=== PATIENT | male | born 1955 | race Caucasian/White ===

== ENCOUNTER 2023-08-10 09:36 | Observation (INO) ==
[2023-08-10 13:44] LABS: BASOPHILS % (AUTO) 0.7 % (0.2-1.0); EOSINOPHILS # (AUTO) 0.1 x10^3/uL (0.0-0.2); EOSINOPHILS % (AUTO) 1.9 % (0.9-2.9); HEMATOCRIT 39.9 % (42.0-54.0); HEMOGLOBIN 13.2 g/dL (13.5-18.0); LYMPHOCYTES # (AUTO) 1.1 X10^3/uL (1.3-2.9); LYMPHOCYTES % (AUTO) 24.3 % (21.0-51.0); MEAN CORPUSCULAR HEMOGLOBIN 29.4 pg (27.0-34.0); MEAN CORPUSCULAR HGB CONC 33.2 g/dL (33.0-35.0); MEAN CORPUSCULAR VOLUME 88.5 fL (80.0-100.0); MEAN PLATELET VOLUME 6.7 fL (7.4-11.0); MONOCYTES # (AUTO) 0.5 x10^3/uL (0.3-0.8); MONOCYTES % (AUTO) 11.7 % (0.0-13.0); NEUTROPHILS # (AUTO) 2.8 x10^3/uL (2.2-4.8); NEUTROPHILS % (AUTO) 61.4 % (42.0-75.0); PLATELET COUNT 218 X10^3/uL (150.0-450.0); RED CELL DISTRIBUTION WIDTH 15.4 % (11.6-16.5); WHITE BLOOD COUNT 4.5 X10^3/uL (3.6-10.0)
[2023-08-10 13:57] LABS: ALANINE AMINOTRANSFERASE 26 Units/L (12-78); ALBUMIN 2.8 g/dL (3.4-5.0); ALKALINE PHOSPHATASE 68 Units/L (46-116); ASPARTATE AMINO TRANSFERASE 20 Units/L (15-37); BLOOD UREA NITROGEN 6 mg/dL (7-18); CALCIUM 8.3 mg/dL (8.5-10.1); CARBON DIOXIDE 30.1 mmol/L (21-32); CHLORIDE 103 mmol/L (98-107); COR CA(FOR HYPOALB) 9.3 mg/dL (8.5-10.1); COR NA(FOR HYPERGLY) 144 mmol/L (136-145); CREATININE 0.78 mg/dL (0.70-1.30); GLUCOSE 216 mg/dL (65-99); MAGNESIUM 1.6 mg/dL (2.0-2.9); POTASSIUM 3.5 mmol/L (3.5-5.1); SODIUM 141 mmol/L (136-145); TOTAL PROTEIN 6.2 g/dL (6.4-8.2); eGFR NON BLACK RACES > 60 (>60)
[2023-08-10] MEDS: NS 1,000 ML IV 1,000 ML IV SCH (14:06)
[2023-08-10] MEDS: PEPCID 20 MG VIAL 20 MG in NS 50 ML IV 50 ML IV SCH (14:06)
--- NOTE | 2023-08-10 16:52 | CT ---
EXAM: ABDCMEN/PELVIS WITH CON HISTORY: worsening diarrhea, positive campy ; COMPARISON: CT abdomen and pelvis 09/25/2020 TECHNIQUE: Multiple CT axial images of the abdomen and pelvis were obtained with IV contrast. Coronal and sagitt al images were reconstructed. Dose reduction techniques included Automated Exposure Control (AEC) and adjustment of mA and kV. FINDINGS: Small left pleural effusion is new. Minimal atelectasis in the left lower lobe associated with the e ffusion. Well-defined linear atelectasis is noted in the right lung base. Heart size normal. Ather osclerotic calcification is present in the coronary arteries. The liver is normal in size and configuration. The gallbladder has no edema around it. The spleen i s normal in size and shape. The adrenal glands are normal. The pancreas is normal. Bilateral renal calcifications are present. Largest on the left side is lower pole measuring 7 mm. But the largest on the right side is very small in the lower pole measuring about 1 mm. Renal enhanc ement is uniform and symmetric with no solid mass. There is no hydronephrosis or significant perirena l edema. The bladder is normally distended. It has no wall thickening or perivesical edema. Prostat e is large protruding into the bladder lumen. There may be mucosal thickening in the transverse colon suggesting colitis. This extends from the mi d transverse colon, through the splenic flexure into the descending colon. More equivocal findings a re seen in the sigmoid colon and rectum. The bowel is not dilated. No obstruction or free air. A n ormal appendix is not identified. But there is no inflammation around the cecum or at the expected lo cation of the appendix. Degenerative changes are present in the spine. There are also degenerative changes in the hips. IMPRESSION: 1. Findings suggesting colitis 2. Nonobstructing renal calculi 3. Small left effusion with atelectasis 4. Large prostate THIS IS AN ELECTRONICALLY VERIFIED FINAL REPORT 08/10/2023 4:49 PM - Electronically signed by Manuel Lugo MD
[2023-08-10] MEDS: MAGNESIUM SULFATE 1 GRAM/100 mL PREMIX 1 G/100 ML BAG IV SCH (16:57)
[2023-08-10] MEDS: NS 250 ML IV 250 ML IV ONE (18:51)
[2023-08-10] MEDS ORDERED: BRILINTA PO SCH (21:00)
[2023-08-10] MEDS: COZAAR PO SCH (21:15)
[2023-08-10] MEDS: LOPRESSOR TAB 50 MG PO SCH (21:15)
[2023-08-10] MEDS: CRESTOR TAB 10 MG PO SCH (21:15)
[2023-08-10] MEDS: CORDARONE TAB 200 MG PO SCH (21:20)
[2023-08-11 05:49] LABS: BASOPHILS % (AUTO) 0.4 % (0.2-1.0); EOSINOPHILS # (AUTO) 0.1 x10^3/uL (0.0-0.2); EOSINOPHILS % (AUTO) 2.6 % (0.9-2.9); HEMATOCRIT 40.8 % (42.0-54.0); HEMOGLOBIN 13.5 g/dL (13.5-18.0); LYMPHOCYTES % (AUTO) 20.6 % (21.0-51.0); MEAN CORPUSCULAR HEMOGLOBIN 29.1 pg (27.0-34.0); MEAN CORPUSCULAR VOLUME 88.2 fL (80.0-100.0); MEAN PLATELET VOLUME 6.9 fL (7.4-11.0); MONOCYTES # (AUTO) 0.5 x10^3/uL (0.3-0.8); MONOCYTES % (AUTO) 10.5 % (0.0-13.0); NEUTROPHILS # (AUTO) 3.1 x10^3/uL (2.2-4.8); NEUTROPHILS % (AUTO) 65.9 % (42.0-75.0); PLATELET COUNT 208 X10^3/uL (150.0-450.0); RED BLOOD COUNT 4.63 X10^6/uL (4.7-6.0); RED CELL DISTRIBUTION WIDTH 15.5 % (11.6-16.5); WHITE BLOOD COUNT 4.7 X10^3/uL (3.6-10.0)
[2023-08-11] MEDS: SYNTHROID 100 mcg TAB PO SCH (05:50)
[2023-08-11] MEDS ORDERED: NS 50 ML IV 50 ML IV ONE ×2 (08:08→08:20)
[2023-08-11] MEDS: NORVASC TAB 5 MG PO SCH (08:22)
[2023-08-11] MEDS: PLAVIX PO SCH (08:22)
[2023-08-11] MEDS: VSL#3 PROBIOTIC CAP 112.5 B PO SCH (08:28)
[2023-08-11 08:37] LABS: ALANINE AMINOTRANSFERASE 22 Units/L (12-78); ALBUMIN 2.8 g/dL (3.4-5.0); ALKALINE PHOSPHATASE 69 Units/L (46-116); ASPARTATE AMINO TRANSFERASE 20 Units/L (15-37); BLOOD UREA NITROGEN 4 mg/dL (7-18); CALCIUM 8.2 mg/dL (8.5-10.1); CARBON DIOXIDE 31.9 mmol/L (21-32); CHLORIDE 104 mmol/L (98-107); COR CA(FOR HYPOALB) 9.2 mg/dL (8.5-10.1); COR NA(FOR HYPERGLY) 144 mmol/L (136-145); CREATININE 0.68 mg/dL (0.70-1.30); GLUCOSE 183 mg/dL (65-99); MAGNESIUM 1.9 mg/dL (2.0-2.9); POTASSIUM 3.6 mmol/L (3.5-5.1); SODIUM 142 mmol/L (136-145); TOTAL PROTEIN 6.4 g/dL (6.4-8.2); eGFR NON BLACK RACES > 60 (>60)
[2023-08-11] MEDS ORDERED: K-DUR TAB 20 MEQ PO SCH (09:00)
[2023-08-11] MEDS ORDERED: MAG-OX TAB PO SCH (09:00)
[2023-08-11] MEDS: CIPRO TAB 500 MG PO SCH (14:00)
[2023-08-11] MEDS: ZITHROMAX TAB 250 MG PO SCH (14:00)
[2023-08-11] MEDS: NovoLIN R (or HumuLIN R) SC PRN (17:29)
--- NOTE | 2023-08-11 23:01 | DR.H&P ---
H&P History & Physical for Day of: H&P Date: 08/10/23 Chief Complaint Chief Complaint: Weakness Diarrhea History of Present Illness History of Present Illness: Patient is a 67-year-old male with a past medical history of hypertension, diabetes, COPD, hypothyroidism, lung cancer, CAD, presenting with generalized weakness and diarrhea for the past few weeks. He reports that he was initially diagnosed with Campylobacter and was treated. His diarrhea did improve at that time but did return and has continued since. He has been on multiple antibiotic medications outpatient and has failed treatment. He reports decreased p.o. intake as well. Denies fevers, chills, abdominal pain. Labs/imaging: WBC 4.5, hemoglobin 13.2, platelets 218, sodium 141, potassium 3.5, creatinine 0.78, glucose 216. Will admit patient for dehy dration, generalized weakness, diarrhea. Will obtain stool studies including AIT send. Start on probiotics. Started on IV fluids. Will restart home medications. Will also obtain a CT abdomen and pelvis for further evaluation. Will continue closely monitor and follow-up labs/imaging. Past Medical History Past Medical History: COPD, Diabetes, Hypertension, Hyperthyroidism and Kidney Stones Past Surgical History Surgical History: Angioplasty/Stents Family History Family Medical History: Diabetes Mellitus, [place] and Hypertension Social History Does patient currently use any type of tobacco product: No Type of Tobacco Use: None Alcohol Use: None Drug Use: None Medications Home Medications: Home Medications Medication Instructions Recorded Confirmed Type celecoxib 100 mg capsule 100 mg PO Q OTHER DAY 03/27/23 08/10/23 History clopidogrel 75 mg tablet 75 mg PO QDAY 03/27/23 08/10/23 History famotidine 40 mg tablet 40 mg PO DAILY 03/27/23 08/10/23 History montelukast 10 mg tablet 10 mg PO QPM 03/27/23 08/10/23 History rosuvastatin 20 mg tablet 20 mg PO HS 03/27/23 08/10/23 History amiodarone 200 mg tablet 200 mg PO BID 08/10/23 08/10/23 History amiodarone 200 mg tablet 200 mg PO DAILY 08/10/23 08/11/23 History amlodipine 5 mg tablet 5 mg PO QDAY 08/10/23 08/10/23 History amlodipine 5 mg tablet 5 mg PO QDAY 08/10/23 08/10/23 History aspirin 81 mg tablet,delayed 81 mg PO HS 08/10/23 08/10/23 History release (Vanda Low Dose Aspirin) dapagliflozin propanediol 5 mg 5 mg PO QAM 08/10/23 08/10/23 History tablet (Farxiga) levothyroxine 100 mcg tablet 100 mcg PO QDAY 08/10/23 08/10/23 History losartan 50 mg tablet 50 mg PO QPM 08/10/23 08/10/23 History metoprolol tartrate 50 mg tablet 50 mg PO BID 08/10/23 08/10/23 History montelukast 10 mg tablet 10 mg PO QHS 08/10/23 08/10/23 History (Singulair) omeprazole 20 mg capsule,delayed 20 mg PO HS 08/10/23 08/10/23 History release Allergies Allergies Allergy/AdvReac Type Severity Reaction Status Date / Time No Known Drug Allergies Allergy Verified 01/16/21 13:02 Labs 08/11/23 05:28 08/11/23 05:28 Labs: 08/11/23 04:10 Stool - Final Laboratory WBC 4.7 X10^3/uL (3.6-10.0) 08/11/23 05:28 RBC 4.63 X10^6/uL (4.7-6.0) L 08/11/23 05:28 Hgb 13.5 g/dL (13.5-18.0) 08/11/23 05:28 Hct 40.8 % (42.0-54.0) L 08/11/23 05:28 MCV 88.2 fL (80.0-100.0) 08/11/23 05:28 MCH 29.1 pg (27.0-34.0) 08/11/23 05:28 MCHC 33.0 g/dL (33.0-35.0) 08/11/23 05:28 RDW 15.5 % (11.6-16.5) 08/11/23 05:28 Plt Count 208 X10^3/uL (150.0-450.0) 08/11/23 05:28 MPV 6.9 fL (7.4-11.0) L 08/11/23 05:28 Neut % (Auto) 65.9 % (42.0-75.0) 08/11/23 05:28 Lymph % (Auto) 20.6 % (21.0-51.0) L 08/11/23 05:28 [place] % (Auto) 10.5 % (0.0-13.0) 08/11/23 05:28 Eos % (Auto) 2.6 % (0.9-2.9) 08/11/23 05:28 Baso % (Auto) 0.4 % (0.2-1.0) 08/11/23 05:28 Neut # (Auto) 3.1 x10^3/uL (2.2-4.8) 08/11/23 05:28 Lymph # (Auto) 1.0 X10^3/uL (1.3-2.9) L 08/11/23 05:28 [place] # (Auto) 0.5 x10^3/uL (0.3-0.8) 08/11/23 05:28 Eos # (Auto) 0.1 x10^3/uL (0.0-0.2) 08/11/23 05:28 Baso # (Auto) 0.0 X10^3/uL (0.0-0.1) 08/11/23 05:28 Absolute Nucleated RBC 0.0 /100WBC 08/11/23 05:28 Sodium 142 mmol/L (136-145) 08/11/23 05:28 Corrected Sodium 144 mmol/L (136-145) 08/11/23 05:28 Potassium 3.6 mmol/L (3.5-5.1) 08/11/23 05:28 Chloride 104 mmol/L (98-107) 08/11/23 05:28 Carbon Dioxide 31.9 mmol/L (21-32) 08/11/23 05:28 BUN 4 mg/dL (7-18) L 08/11/23 05:28 Creatinine 0.68 mg/dL (0.70-1.30) L 08/11/23 05:28 Est GFR (MDRD) Af Amer > 60 (>60) 08/11/23 05:28 Est GFR (MDRD) Non-Af > 60 (>60) 08/11/23 05:28 Glucose 183 mg/dL (65-99) H 08/11/23 05:28 POC Glucose (mg/dL) 246 mg/dL (65-99) H 08/11/23 20:25 Calcium 8.2 mg/dL (8.5-10.1) L 08/11/23 05:28 Corrected Calcium 9.2 mg/dL (8.5-10.1) 08/11/23 05:28 Magnesium 1.9 mg/dL (2.0-2.9) L 08/11/23 05:28 Total Bilirubin 0.40 mg/dL (0.2-1.0) 08/11/23 05:28 AST 20 Units/L (15-37) 08/11/23 05:28 ALT 22 Units/L (12-78) 08/11/23 05:28 Alkaline Phosphatase 69 Units/L (46-116) 08/11/23 05:28 Total Protein 6.4 g/dL (6.4-8.2) 08/11/23 05:28 Albumin 2.8 g/dL (3.4-5.0) L 08/11/23 05:28 Globulin 3.6 g/dL (2.5-4.5) 08/11/23 05:28 Albumin/Globulin Ratio 0.8 Ratio (1.1-2.1) L 08/11/23 05:28 Stl Occult Blood (IFOB) Positive (NEGATIVE) A 08/11/23 04:10 Stool for White Cells Positive (NEGATIVE) A 08/11/23 04:10 Stl C. diff Tox B Gene Negative (NEGATIVE) 08/11/23 04:10 Stl C. diff [id number]-[id number] Presumptive negative (NEGATIVE) 08/11/23 04:10 Review of Systems Constitutional: Weakness Eyes: No Symptoms Reported ENT: No Symptoms Reported Respiratory: No Symptoms Reported Cardiovascular: No Symptoms Reported Gastrointestinal: Diarrhea Genitourinary: No Symptoms Reported Musculoskeletal: No Symptoms Reported Skin: No Symptoms Reported Neurological: No Symptoms Reported Physical Exam Vital Signs: Vital Signs Temperature 99.0 F Pulse Rate [Bilateral Radial] 82 Respiratory Rate 18 Blood Pressure [Left Arm] 128/68 O2 Sat by Pulse Oximetry 95 Oriented: Normal Eyes: Normal Ear: Normal Nose: Normal Throat: Normal Respiratory: Clear Throughout Cardiovascular: Normal : Normal Auscultation: Bowel Sounds: Normal Palpation: Normal Tenderness: Normal Skin: Normal Musculoskeletal: Normal Psychiatric: Normal Mood Description: Calm and Appropriate Affect: Normal Speech Pattern: Clear and Appropriate Assessment/Plan (1) Dehydration: Status: Acute Plan: IVF (2) Generalized weakness: Status: Acute (3) Diarrhea: Narrative Support Text: Will get stool culture. Status: Acute Review H&P Reviewed: Yes Patient was examined?: Yes
--- NOTE | 2023-08-11 23:09 | PCM.PROG ---
Progress Note Progress Note for Day of Date of Exam: 08/11/23 Subjective Subjective: Patient is a 67-year-old male with a past medical history of hypertension, diabetes, COPD, hypothyroidism, lung cancer, CAD, admitted for dehydration, generalized weakness, and diarrhea. This morning he is resting in bed comfortably. He reports multiple episodes of diarrhea overnight. No other symptoms. Labs/imaging: WBC 4.7, hemoglobin 13.5, platelets 208, sodium 142, potassium 3.6, creatinine 0.68, glucose 183. Stool culture revealed Campylobacter. AIT send out pending. Will start patient on p.o. azithromycin and ciprofloxacin. Continue with probiotics and IV fluids. Home medications have been resumed. CT abdomen and pelvis was obtained that revealed:1. Findings suggesting colitis. 2.Nonobstructing renal calculi. 3.Small left effusion with atelectasis. 4.Large prostate. Will continue with current treatment plan. Continue closely monitor and follow-up labs/imaging. Past Medical Family Social History Allergies: Allergies No Known Drug Allergies Allergy (Verified 01/16/21 13:02) Review of Systems ROS changes noted: see HPI Vital Signs and I&O's Vital Signs: Vital Signs Temperature 99.0 F Pulse Rate [Bilateral Radial] 82 Respiratory Rate 18 Blood Pressure [Left Arm] 128/68 O2 Sat by Pulse Oximetry 95 Intake and Output: Intake & Output 08/08/23 08/09/23 08/10/23 08/11/23 23:59 23:59 23:59 23:59 Intake Total 1000 / 1000 1801 / 1801 Balance 1000 / 1000 1801 / 1801 Physical Exam Oriented: Normal Eyes: Normal Ear: Normal Nose: Normal Throat: Normal Respiratory: Normal Cardiovascular: Normal : Normal Auscultation: Bowel Sounds: Normal Palpation: Normal Tenderness: Normal Skin: Normal Musculoskeletal: Normal Psychiatric: Normal Mood Description: Calm and Appropriate Affect: Normal Speech Pattern: Clear and Appropriate Laboratory and Diagnostics 08/11/23 05:28 08/11/23 05:28 Labs: 08/11/23 04:10 Stool - Final Laboratory WBC 4.7 X10^3/uL (3.6-10.0) 08/11/23 05:28 RBC 4.63 X10^6/uL (4.7-6.0) L 08/11/23 05:28 Hgb 13.5 g/dL (13.5-18.0) 08/11/23 05:28 Hct 40.8 % (42.0-54.0) L 08/11/23 05:28 MCV 88.2 fL (80.0-100.0) 08/11/23 05:28 MCH 29.1 pg (27.0-34.0) 08/11/23 05:28 MCHC 33.0 g/dL (33.0-35.0) 08/11/23 05:28 RDW 15.5 % (11.6-16.5) 08/11/23 05:28 Plt Count 208 X10^3/uL (150.0-450.0) 08/11/23 05:28 MPV 6.9 fL (7.4-11.0) L 08/11/23 05:28 Neut % (Auto) 65.9 % (42.0-75.0) 08/11/23 05:28 Lymph % (Auto) 20.6 % (21.0-51.0) L 08/11/23 05:28 [place] % (Auto) 10.5 % (0.0-13.0) 08/11/23 05:28 Eos % (Auto) 2.6 % (0.9-2.9) 08/11/23 05:28 Baso % (Auto) 0.4 % (0.2-1.0) 08/11/23 05:28 Neut # (Auto) 3.1 x10^3/uL (2.2-4.8) 08/11/23 05:28 Lymph # (Auto) 1.0 X10^3/uL (1.3-2.9) L 08/11/23 05:28 [place] # (Auto) 0.5 x10^3/uL (0.3-0.8) 08/11/23 05:28 Eos # (Auto) 0.1 x10^3/uL (0.0-0.2) 08/11/23 05:28 Baso # (Auto) 0.0 X10^3/uL (0.0-0.1) 08/11/23 05:28 Absolute Nucleated RBC 0.0 /100WBC 08/11/23 05:28 Sodium 142 mmol/L (136-145) 08/11/23 05:28 Corrected Sodium 144 mmol/L (136-145) 08/11/23 05:28 Potassium 3.6 mmol/L (3.5-5.1) 08/11/23 05:28 Chloride 104 mmol/L (98-107) 08/11/23 05:28 Carbon Dioxide 31.9 mmol/L (21-32) 08/11/23 05:28 BUN 4 mg/dL (7-18) L 08/11/23 05:28 Creatinine 0.68 mg/dL (0.70-1.30) L 08/11/23 05:28 Est GFR (MDRD) Af Amer > 60 (>60) 08/11/23 05:28 Est GFR (MDRD) Non-Af > 60 (>60) 08/11/23 05:28 Glucose 183 mg/dL (65-99) H 08/11/23 05:28 POC Glucose (mg/dL) 246 mg/dL (65-99) H 08/11/23 20:25 Calcium 8.2 mg/dL (8.5-10.1) L 08/11/23 05:28 Corrected Calcium 9.2 mg/dL (8.5-10.1) 08/11/23 05:28 Magnesium 1.9 mg/dL (2.0-2.9) L 08/11/23 05:28 Total Bilirubin 0.40 mg/dL (0.2-1.0) 08/11/23 05:28 AST 20 Units/L (15-37) 08/11/23 05:28 ALT 22 Units/L (12-78) 08/11/23 05:28 Alkaline Phosphatase 69 Units/L (46-116) 08/11/23 05:28 Total Protein 6.4 g/dL (6.4-8.2) 08/11/23 05:28 Albumin 2.8 g/dL (3.4-5.0) L 08/11/23 05:28 Globulin 3.6 g/dL (2.5-4.5) 08/11/23 05:28 Albumin/Globulin Ratio 0.8 Ratio (1.1-2.1) L 08/11/23 05:28 Stl Occult Blood (IFOB) Positive (NEGATIVE) A 08/11/23 04:10 Stool for White Cells Positive (NEGATIVE) A 08/11/23 04:10 Stl C. diff Tox B Gene Negative (NEGATIVE) 08/11/23 04:10 Stl C. diff [id number]-NAP1-BI Presumptive negative (NEGATIVE) 08/11/23 04:10 Plan (1) Colitis due to Campylobacter species: Status: Acute (2) Campylobacter diarrhea: Status: Acute (3) Dehydration: Status: Acute Plan: IVF (4) Generalized weakness: Status: Acute (5) Diarrhea: Status: Acute
[2023-08-12] MEDS: TYLENOL 325 MG TAB PO PRN (05:25)
[2023-08-12 05:53] LABS: BASOPHILS % (AUTO) 1.1 % (0.2-1.0); EOSINOPHILS # (AUTO) 0.1 x10^3/uL (0.0-0.2); EOSINOPHILS % (AUTO) 3.1 % (0.9-2.9); HEMATOCRIT 39.6 % (42.0-54.0); HEMOGLOBIN 12.8 g/dL (13.5-18.0); LYMPHOCYTES # (AUTO) 1.2 X10^3/uL (1.3-2.9); LYMPHOCYTES % (AUTO) 27.5 % (21.0-51.0); MEAN CORPUSCULAR HEMOGLOBIN 28.6 pg (27.0-34.0); MEAN CORPUSCULAR HGB CONC 32.2 g/dL (33.0-35.0); MEAN CORPUSCULAR VOLUME 88.9 fL (80.0-100.0); MEAN PLATELET VOLUME 6.8 fL (7.4-11.0); MONOCYTES # (AUTO) 0.5 x10^3/uL (0.3-0.8); MONOCYTES % (AUTO) 12.1 % (0.0-13.0); NEUTROPHILS # (AUTO) 2.4 x10^3/uL (2.2-4.8); NEUTROPHILS % (AUTO) 56.2 % (42.0-75.0); PLATELET COUNT 202 X10^3/uL (150.0-450.0); RED BLOOD COUNT 4.46 X10^6/uL (4.7-6.0); RED CELL DISTRIBUTION WIDTH 15.6 % (11.6-16.5); WHITE BLOOD COUNT 4.3 X10^3/uL (3.6-10.0)
[2023-08-12 06:10] LABS: ALANINE AMINOTRANSFERASE 24 Units/L (12-78); ALBUMIN 2.7 g/dL (3.4-5.0); ALKALINE PHOSPHATASE 70 Units/L (46-116); ASPARTATE AMINO TRANSFERASE 19 Units/L (15-37); BLOOD UREA NITROGEN 3 mg/dL (7-18); CARBON DIOXIDE 31.2 mmol/L (21-32); CHLORIDE 104 mmol/L (98-107); COR NA(FOR HYPERGLY) 143 mmol/L (136-145); CREATININE 0.57 mg/dL (0.70-1.30); GLUCOSE 216 mg/dL (65-99); MAGNESIUM 1.7 mg/dL (2.0-2.9); POTASSIUM 3.3 mmol/L (3.5-5.1); SODIUM 140 mmol/L (136-145); TOTAL PROTEIN 6.1 g/dL (6.4-8.2); eGFR NON BLACK RACES > 60 (>60)
[2023-08-12] MEDS: CORDARONE TAB 200 MG PO SCH (09:09)
[2023-08-12] MEDS: MAG-OX TAB PO SCH (09:09)
[2023-08-12] MEDS: NS + KCL 20 MEQ/L 1,000 ML IV SCH (12:41)
[2023-08-13 05:51] LABS: BASOPHILS % (AUTO) 0.9 % (0.2-1.0); EOSINOPHILS # (AUTO) 0.2 x10^3/uL (0.0-0.2); EOSINOPHILS % (AUTO) 3.3 % (0.9-2.9); HEMATOCRIT 39.8 % (42.0-54.0); HEMOGLOBIN 13.1 g/dL (13.5-18.0); LYMPHOCYTES # (AUTO) 1.4 X10^3/uL (1.3-2.9); LYMPHOCYTES % (AUTO) 29.5 % (21.0-51.0); MEAN CORPUSCULAR HGB CONC 32.8 g/dL (33.0-35.0); MEAN CORPUSCULAR VOLUME 88.4 fL (80.0-100.0); MEAN PLATELET VOLUME 6.8 fL (7.4-11.0); MONOCYTES # (AUTO) 0.5 x10^3/uL (0.3-0.8); MONOCYTES % (AUTO) 11.2 % (0.0-13.0); NEUTROPHILS # (AUTO) 2.5 x10^3/uL (2.2-4.8); NEUTROPHILS % (AUTO) 55.1 % (42.0-75.0); PLATELET COUNT 222 X10^3/uL (150.0-450.0); RED CELL DISTRIBUTION WIDTH 15.8 % (11.6-16.5); WHITE BLOOD COUNT 4.6 X10^3/uL (3.6-10.0)
[2023-08-13 06:00] LABS: ALANINE AMINOTRANSFERASE 24 Units/L (12-78); ALBUMIN 2.8 g/dL (3.4-5.0); ALKALINE PHOSPHATASE 70 Units/L (46-116); ASPARTATE AMINO TRANSFERASE 23 Units/L (15-37); BLOOD UREA NITROGEN 3 mg/dL (7-18); CALCIUM 8.1 mg/dL (8.5-10.1); CARBON DIOXIDE 30.8 mmol/L (21-32); CHLORIDE 104 mmol/L (98-107); COR CA(FOR HYPOALB) 9.1 mg/dL (8.5-10.1); COR NA(FOR HYPERGLY) 143 mmol/L (136-145); CREATININE 0.54 mg/dL (0.70-1.30); GLUCOSE 216 mg/dL (65-99); POTASSIUM 3.2 mmol/L (3.5-5.1); SODIUM 140 mmol/L (136-145); TOTAL PROTEIN 6.4 g/dL (6.4-8.2); eGFR NON BLACK RACES > 60 (>60)
[2023-08-13] MEDS ORDERED: CONSULT PHARMACY - POTASSIUM & MAGNESIUM XX SCH ×3 (07:00)
[2023-08-13] MEDS ORDERED: K-DUR TAB 20 MEQ PO SCH (10:00)
--- NOTE | 2023-08-13 10:10 | PCM.PROG ---
Progress Note Progress Note for Day of Date of Exam: 08/12/23 Subjective Subjective: Patient is a 67-year-old male with a past medical history of hypertension, diabetes, COPD, hypothyroidism, lung cancer, CAD, admitted for dehydration, generalized weakness, and campylobacter diarrhea. This morning he reports some improvement in his symptoms. His strength and appetite has imp roved. Diarrhea has subsided a little compared to yesterday. No acute events overnight. Labs/imaging: WBC 4.3, hemoglobin 12.8, platelets 202, sodium 140, potassium 3.3, creatinine 0.57, glucose 216. Stool culture revealed Campylobacter. AIT send out pending. Pt is currently on p.o. azithromycin and ciprofloxacin. Continue with probiotics and IV fluids. Home medications have been resumed. Otherwise, continue with current treatment plan. Continue to closely monitor and follow-up labs in the morning. Past Medical Family Social History Allergies: Allergies No Known Drug Allergies Allergy (Verified 01/16/21 13:02) Review of Systems ROS changes noted: see HPI Vital Signs and I&O's Vital Signs: Vital Signs Temperature 98.3 F Pulse Rate [Bilateral Radial] 87 Respiratory Rate 18 Blood Pressure [Right Arm] 136/83 O2 Sat by Pulse Oximetry 95 Intake and Output: Intake & Output 08/10/23 08/11/23 08/12/23 08/13/23 23:59 23:59 23:59 23:59 Intake Total 1000 / 1000 3758 / 3758 3348 / 3348 0 / 0 Balance 1000 / 1000 3758 / 3758 3348 / 3348 0 / 0 Physical Exam Oriented: Normal Eyes: Normal Ear: Normal Nose: Normal Throat: Normal Respiratory: Normal Cardiovascular: Normal : Normal Auscultation: Bowel Sounds: Normal Tenderness: Normal Skin: Normal Musculoskeletal: Normal Psychiatric: Normal Mood Description: Calm and Appropriate Affect: Normal Speech Pattern: Clear and Appropriate Laboratory and Diagnostics 08/13/23 05:35 08/13/23 05:35 Labs: 08/11/23 04:10 Stool Stool Culture - Final 08/11/23 04:10 Stool - Final Laboratory WBC 4.6 X10^3/uL (3.6-10.0) 08/13/23 05:35 RBC 4.50 X10^6/uL (4.7-6.0) L 08/13/23 05:35 Hgb 13.1 g/dL (13.5-18.0) L 08/13/23 05:35 Hct 39.8 % (42.0-54.0) L 08/13/23 05:35 MCV 88.4 fL (80.0-100.0) 08/13/23 05:35 MCH 29.0 pg (27.0-34.0) 08/13/23 05:35 MCHC 32.8 g/dL (33.0-35.0) L 08/13/23 05:35 RDW 15.8 % (11.6-16.5) 08/13/23 05:35 Plt Count 222 X10^3/uL (150.0-450.0) 08/13/23 05:35 MPV 6.8 fL (7.4-11.0) L 08/13/23 05:35 Neut % (Auto) 55.1 % (42.0-75.0) 08/13/23 05:35 Lymph % (Auto) 29.5 % (21.0-51.0) 08/13/23 05:35 [place] % (Auto) 11.2 % (0.0-13.0) 08/13/23 05:35 Eos % (Auto) 3.3 % (0.9-2.9) H 08/13/23 05:35 Baso % (Auto) 0.9 % (0.2-1.0) 08/13/23 05:35 Neut # (Auto) 2.5 x10^3/uL (2.2-4.8) 08/13/23 05:35 Lymph # (Auto) 1.4 X10^3/uL (1.3-2.9) 08/13/23 05:35 [place] # (Auto) 0.5 x10^3/uL (0.3-0.8) 08/13/23 05:35 Eos # (Auto) 0.2 x10^3/uL (0.0-0.2) 08/13/23 05:35 Baso # (Auto) 0.0 X10^3/uL (0.0-0.1) 08/13/23 05:35 Absolute Nucleated RBC 0.0 /100WBC 08/13/23 05:35 Sodium 140 mmol/L (136-145) 08/13/23 05:35 Corrected Sodium 143 mmol/L (136-145) 08/13/23 05:35 Potassium 3.2 mmol/L (3.5-5.1) L 08/13/23 05:35 Chloride 104 mmol/L (98-107) 08/13/23 05:35 Carbon Dioxide 30.8 mmol/L (21-32) 08/13/23 05:35 BUN 3 mg/dL (7-18) L 08/13/23 05:35 Creatinine 0.54 mg/dL (0.70-1.30) L 08/13/23 05:35 Est GFR (MDRD) Af Amer > 60 (>60) 08/13/23 05:35 Est GFR (MDRD) Non-Af > 60 (>60) 08/13/23 05:35 Glucose 216 mg/dL (65-99) H 08/13/23 05:35 POC Glucose (mg/dL) 189 mg/dL (65-99) H 08/13/23 05:32 Calcium 8.1 mg/dL (8.5-10.1) L 08/13/23 05:35 Corrected Calcium 9.1 mg/dL (8.5-10.1) 08/13/23 05:35 Magnesium 1.8 mg/dL (2.0-2.9) L 08/13/23 05:35 Total Bilirubin 0.50 mg/dL (0.2-1.0) 08/13/23 05:35 AST 23 Units/L (15-37) 08/13/23 05:35 ALT 24 Units/L (12-78) 08/13/23 05:35 Alkaline Phosphatase 70 Units/L (46-116) 08/13/23 05:35 Total Protein 6.4 g/dL (6.4-8.2) 08/13/23 05:35 Albumin 2.8 g/dL (3.4-5.0) L 08/13/23 05:35 Globulin 3.6 g/dL (2.5-4.5) 08/13/23 05:35 Albumin/Globulin Ratio 0.8 Ratio (1.1-2.1) L 08/13/23 05:35 Stl Occult Blood (IFOB) Positive (NEGATIVE) A 08/11/23 04:10 Stool for White Cells Positive (NEGATIVE) A 08/11/23 04:10 Stl C. diff Tox B Gene Negative (NEGATIVE) 08/11/23 04:10 Stl C. diff [id number]-BI Presumptive negative (NEGATIVE) 08/11/23 04:10 Plan (1) Colitis due to Campylobacter species: Status: Acute (2) Campylobacter diarrhea: Status: Acute (3) Dehydration: Status: Acute Plan: IVF (4) Generalized weakness: Status: Acute (5) Diarrhea: Status: Acute
[2023-08-13] MEDS: MAG-OX TAB PO SCH (10:13)
[2023-08-13] MEDS: NS + KCL 40 MEQ/L 1,000 ML IV SCH (10:34)
--- NOTE | 2023-08-13 12:50 | RAD ---
EXAM: CHEST, PA/LAT ADULT HISTORY: CONGESTION; COMPARISON: 03/27/2023 FINDINGS: The trachea is midline. The cardiac silhouette is unremarkable . A right sided delvin catheter is ob served with the tip in the SVC. The lungs are clear without focal infiltrate or effusion. The bony t horax is unremarkable. IMPRESSION: No acute cardiopulmonary disease. THIS IS AN ELECTRONICALLY VERIFIED FINAL REPORT 08/13/2023 12:47 PM - Electronically signed by Soto Quezada MD
[2023-08-13] MEDS: BENTYL CAP 10 MG PO PRN (16:15)
[2023-08-14 06:28] LABS: BASOPHILS # (AUTO) 0.2 X10^3/uL (0.0-0.1); BASOPHILS % (AUTO) 6.2 % (0.2-1.0); EOSINOPHILS # (AUTO) 0.2 x10^3/uL (0.0-0.2); EOSINOPHILS % (AUTO) 4.3 % (0.9-2.9); HEMATOCRIT 41.2 % (42.0-54.0); HEMOGLOBIN 13.6 g/dL (13.5-18.0); LYMPHOCYTES # (AUTO) 0.9 X10^3/uL (1.3-2.9); LYMPHOCYTES % (AUTO) 23.8 % (21.0-51.0); MEAN CORPUSCULAR HEMOGLOBIN 29.1 pg (27.0-34.0); MEAN PLATELET VOLUME 6.8 fL (7.4-11.0); MONOCYTES # (AUTO) 0.4 x10^3/uL (0.3-0.8); MONOCYTES % (AUTO) 9.8 % (0.0-13.0); NEUTROPHILS # (AUTO) 2.2 x10^3/uL (2.2-4.8); NEUTROPHILS % (AUTO) 55.9 % (42.0-75.0); PLATELET COUNT 219 X10^3/uL (150.0-450.0); RED BLOOD COUNT 4.68 X10^6/uL (4.7-6.0); RED CELL DISTRIBUTION WIDTH 15.7 % (11.6-16.5); WHITE BLOOD COUNT 3.9 X10^3/uL (3.6-10.0)
[2023-08-14 06:54] LABS: ALANINE AMINOTRANSFERASE 29 Units/L (12-78); ALBUMIN 2.8 g/dL (3.4-5.0); ALKALINE PHOSPHATASE 74 Units/L (46-116); ASPARTATE AMINO TRANSFERASE 28 Units/L (15-37); BLOOD UREA NITROGEN 3 mg/dL (7-18); CALCIUM 8.3 mg/dL (8.5-10.1); CARBON DIOXIDE 30.2 mmol/L (21-32); CHLORIDE 103 mmol/L (98-107); COR CA(FOR HYPOALB) 9.3 mg/dL (8.5-10.1); COR NA(FOR HYPERGLY) 142 mmol/L (136-145); CREATININE 0.57 mg/dL (0.70-1.30); GLUCOSE 217 mg/dL (65-99); MAGNESIUM 1.9 mg/dL (2.0-2.9); POTASSIUM 3.6 mmol/L (3.5-5.1); SODIUM 139 mmol/L (136-145); TOTAL PROTEIN 6.4 g/dL (6.4-8.2); eGFR NON BLACK RACES > 60 (>60)
[2023-08-14 07:28] LABS: BASOPHILS % (MANUAL) 6 % (0-1)
[2023-08-14 07:30] LABS: PLATELET MORPHOLOGY COMMENT NORMAL (NORMAL)
[2023-08-14 08:17] VITALS: RESP 18
[2023-08-14] MEDS ORDERED: FLOMAX PO SCH (10:00)
[2023-08-14 11:50] VITALS: BP 121/77; PULSE 76; TEMP 97.5; O2SAT 98
--- NOTE | 2023-08-14 12:39 | RAD ---
EXAM:CHEST, 1 VIEWHISTORY:PLEURAL EFFUSION;COMPARISON:08/13/2023FINDINGS:T he trachea is midline. The cardiac silhouette is unremarkable . A right sided delvin catheter is observed with the tip in the SVC. The lungs are clear without focal infiltrate or effusion. The bony thorax is unremarkable.IMPRESSION:No acute cardiopulmonary disease.THIS IS AN ELECTRONICALLY VERIFIED FINAL REPORT08/14/2023 12:35 PM - Electronically signed by Soto Quezada MD
[2023-08-14 14:06] LABS: BILIRUBIN,URINE NEGATIVE (NEGATIVE); BLOOD/HEMOGLOBIN,URINE 1+ (NEGATIVE); GLUCOSE, URINE 4+ (NEGATIVE); KETONES,URINE NEGATIVE (NEGATIVE); LEUKOCYTE ESTERASE ,URINE NEGATIVE (NEGATIVE); NITRITES,URINE NEGATIVE (NEGATIVE); PROTEIN,URINE 2+ (NEGATIVE); UROBILINOGEN,URINE NORMAL (NORMAL)
[2023-08-14 14:22] LABS: APPEARANCE,URINE CLEAR (CLEAR); COLOR,URINE DARK YELLOW (YELLOW); RBC,URINE 0-2 /HPF (0-3); SQUAMOUS EPITHELIAL CELL,UR RARE /HPF (NEGATIVE)
[2023-08-14 14:23] LABS: BACTERIA,URINE NEGATIVE /HPF (NEGATIVE)
== END 2023-08-14 14:20 | disposition home or self-care (01) ==
LOC: MED/SURG
PROVIDERS: ADMIT Internal Medicine; ATTEND Internal Medicine
DX: R53.1 Weakness; J98.11 Atelectasis; N40.0 Benign prostatic hyperplasia without lower urinary tract symptoms; I25.10 Atherosclerotic heart disease of native coronary artery without angina pectoris; E86.0 Dehydration; I10 Essential (primary) hypertension; Z85.118 Personal history of other malignant neoplasm of bronchus and lung; N20.0 Calculus of kidney; J44.9 Chronic obstructive pulmonary disease, unspecified; A04.5 Campylobacter enteritis; E83.42 Hypomagnesemia; E03.8 Other specified hypothyroidism; K92.1 Melena; E11.65 Type 2 diabetes mellitus with hyperglycemia

== ENCOUNTER 2024-08-13 17:23 | Inpatient (IN) ==
--- NOTE | 2024-08-13 17:47 | EKG ---
Test Reason : weakness Blood Pressure : */* mmHG Vent. Rate : 109 BPM Atrial Rate : 109 BPM P-R Int : 162 ms QRS Dur : 124 ms QT Int : 358 ms P-R-T Axes : 72 -16 101 degrees QTc Int : 482 ms Sinus tachycardia Nonspecific intraventricular conduction delay Abnormal ECG When compared with ECG of 27-MAR-2023 19:41, ST now depressed in Lateral leads T wave inversion now evident in Lateral leads Confirmed by Mannie Wallace MD ([id number]) on 08/14/2024 7:07:38 AM Referred By: Confirmed By: Mannie Wallace MD
[2024-08-13 18:05] LABS: HEMOGLOBIN 11.5 g/dL (13.5-18.0); LYMPHOCYTES # (AUTO) 0.7 X10^3/uL (1.3-2.9); MEAN CORPUSCULAR HEMOGLOBIN 27.7 pg (27.0-34.0); MEAN CORPUSCULAR VOLUME 84.8 fL (80.0-100.0); MONOCYTES # (AUTO) 0.4 x10^3/uL (0.3-0.8); PLATELET COUNT 181 X10^3/uL (150.0-450.0)
[2024-08-13 18:12] LABS: ALANINE AMINOTRANSFERASE 23 Units/L (12-78); ALBUMIN 2.4 g/dL (3.4-5.0); ALKALINE PHOSPHATASE 130 Units/L (46-116); ASPARTATE AMINO TRANSFERASE 19 Units/L (15-37); BLOOD UREA NITROGEN 15 mg/dL (7-18); CALCIUM 8.6 mg/dL (8.5-10.1); CARBON DIOXIDE 28.2 mmol/L (21-32); CHLORIDE 100 mmol/L (98-107); COR CA(FOR HYPOALB) 9.9 mg/dL (8.5-10.1); COR NA(FOR HYPERGLY) 137 mmol/L (136-145); CREATININE 0.94 mg/dL (0.70-1.30); GLUCOSE 174 mg/dL (65-99); POTASSIUM 4.9 mmol/L (3.5-5.1); SODIUM 135 mmol/L (136-145); TOTAL PROTEIN 6.5 g/dL (6.4-8.2); eGFR NON BLACK RACES > 60 (>60)
[2024-08-13 18:27] LABS: LYMPHOCYTES % (AUTO) 26.2 % (21.0-51.0); MEAN CORPUSCULAR HGB CONC 32.7 g/dL (33.0-35.0); RED BLOOD COUNT 4.13 X10^6/uL (4.7-6.0); RED CELL DISTRIBUTION WIDTH 19.7 % (11.6-16.5); WHITE BLOOD COUNT 2.6 X10^3/uL (3.6-10.0)
[2024-08-13 18:28] LABS: BASOPHILS % (AUTO) 0.4 % (0.2-1.0); EOSINOPHILS % (AUTO) 1.1 % (0.9-2.9); MONOCYTES % (AUTO) 14.3 % (0.0-13.0); NEUTROPHILS # (AUTO) 1.5 x10^3/uL (2.2-4.8)
[2024-08-13 18:42] LABS: ANISOCYTOSIS SLIGHT; PLATELET MORPHOLOGY COMMENT NORMAL (NORMAL)
--- NOTE | 2024-08-13 18:45 | DR.N/VMALE ---
HPI Time Seen Time Seen by Provider: 08/13/24 18:43 Primary Care Physician Primary Care Physician: Regis Mcmahon Chief Complaint Doctors Comments: Has history of lung cancer which is an exacerbation right now he is currently getting chemo for that they stated that he has been getting excessively weak and has not been taking good fluid intake. Chief Complaint:: EMS called to home w/ c/o weakness, nausea and confusion. Pt presents to ED and is pale, weak, verbal responses are delayed or pt states "I don't know". No family at bedside during triage. Pt states "I just feel so bad"; admits weakness, nausea, left side abdominal pain at lower rib area and decreased PO intake COVID-19 Coronavirus risk:travel/contact w/high risk person: No Has patient experienced Coronavirus symptoms: No Source History Provided: Patient and EMS Mode of Arrival Mode of Arrival: EMS Timing Onset of Chief Complaint: 08/12/24 PMH PMH Past Medical History: Yes Past Medical History: Anemia, Arthritis, COPD, Diabetes, Dyslipidemia, GERD, Hypertension and Hyperthyroidism Past Medical History Comment: hx LLE DVT, lung cancer, T2DM, PVD, neuropathy, OA, glaucoma Past Surgical History: Yes Surgical History: Angioplasty/Stents, Joint Replacement, Tonsillectomy and Other Past Surgical History Comment: cardiac stents x6, DVT LLL stents, PAC LCW Family History History of Family Medical Conditions: Yes Family Medical History: Diabetes Mellitus, [place] and Hypertension Social History Does any household member use tobacco: No Alcohol Use: None Do you use any recreational Drugs:: No Lives With: Spouse Lives Where: Home Travel Risk Coronavirus risk:travel/contact w/high risk person: No Has patient experienced Coronavirus symptoms: No Infectious screening In the last 2 months have you had wt loss of >10#?: NO Have you had fever, night sweats or hemotysis?: No Have you traveled outside the country in the last 6 months?: No Isolation: Standard PE Vital Signs Vitals: Vital Signs Temperature 99.3 F Pulse Rate 108 Pulse Rate 109 Pulse Rate 110 Pulse Rate 112 Pulse Rate 116 Pulse Rate 109 Pulse Rate 109 Pulse Rate 109 Pulse Rate 110 Pulse Rate 109 Respiratory Rate 19 Respiratory Rate 15 Respiratory Rate 17 Respiratory Rate 20 Respiratory Rate 21 Respiratory Rate 18 Respiratory Rate 17 Respiratory Rate 19 Respiratory Rate 17 Respiratory Rate 17 Blood Pressure 127/62 Blood Pressure 128/67 Blood Pressure 125/66 O2 Sat by Pulse Oximetry 99 O2 Sat by Pulse Oximetry 99 O2 Sat by Pulse Oximetry 96 O2 Sat by Pulse Oximetry 97 COURSE Treatment Treatment: Was signed out to Dr. Handy [facility] Labs Reviewed 08/17/24 06:20 08/17/24 06:20 Laboratory: 08/14/24 15:13 Blood Blood Culture - Preliminary 08/14/24 15:07 Blood Blood Culture - Preliminary 08/13/24 18:55 Urine,Clean Catch Urine Culture - Final 08/13/24 18:17 Blood Blood Culture - Preliminary 08/13/24 18:10 Blood Blood Culture - Preliminary WBC 4.7 X10^3/uL (3.6-10.0) 08/15/24 05:08 RBC 3.66 X10^6/uL (4.7-6.0) L 08/15/24 05:08 Hgb 10.3 g/dL (13.5-18.0) L 08/15/24 05:08 Hct 30.8 % (42.0-54.0) L 08/15/24 05:08 MCV 84.3 fL (80.0-100.0) 08/15/24 05:08 MCH 28.2 pg (27.0-34.0) 08/15/24 05:08 MCHC 33.4 g/dL (33.0-35.0) 08/15/24 05:08 RDW 19.2 % (11.6-16.5) H 08/15/24 05:08 Plt Count 177 X10^3/uL (150.0-450.0) 08/15/24 05:08 Plt Count Comment Adequate (ADEQUATE) 08/15/24 05:08 MPV 8.4 fL (7.4-11.0) 08/15/24 05:08 Neut % (Auto) 72.6 % (42.0-75.0) 08/15/24 05:08 Lymph % (Auto) 12.7 % (21.0-51.0) L 08/15/24 05:08 [place] % (Auto) 13.6 % (0.0-13.0) H 08/15/24 05:08 Eos % (Auto) 0.7 % (0.9-2.9) L 08/15/24 05:08 Baso % (Auto) 0.4 % (0.2-1.0) 08/15/24 05:08 Neut # (Auto) 3.4 x10^3/uL (2.2-4.8) 08/15/24 05:08 Lymph # (Auto) 0.6 X10^3/uL (1.3-2.9) L 08/15/24 05:08 [place] # (Auto) 0.6 x10^3/uL (0.3-0.8) 08/15/24 05:08 Eos # (Auto) 0.0 x10^3/uL (0.0-0.2) 08/15/24 05:08 Baso # (Auto) 0.0 X10^3/uL (0.0-0.1) 08/15/24 05:08 Absolute Nucleated RBC 0.2 /100WBC 08/15/24 05:08 Total Counted 100 08/15/24 05:08 Neutrophils % (Manual) 62 % (39-76) 08/15/24 05:08 Band Neutrophils % 14 % (0-10) H 08/15/24 05:08 Lymphocytes % (Manual) 14 % (13-43) 08/15/24 05:08 Monocytes % (Manual) 6 % (4-9) 08/15/24 05:08 Eosinophils % (Manual) 1 % (0-6) 08/15/24 05:08 Metamyelocytes % 1 08/15/24 05:08 Myelocytes % 2 08/15/24 05:08 Plt Morphology Comment Normal (NORMAL) 08/15/24 05:08 RBC Morphology Abnormal (NORMAL) 08/15/24 05:08 Anisocytosis Slight A 08/15/24 05:08 PT 16.0 SECONDS (11.8-14.3) 08/14/24 05:07 INR Target Range - 08/14/24 05:07 INR 1.27 (0.8-1.3) 08/14/24 05:07 APTT 35.4 SECONDS (22.9-36.5) 08/14/24 05:07 PTT Comment - 08/14/24 05:07 Sodium 134 mmol/L (136-145) L 08/15/24 05:08 Corrected Sodium 136 mmol/L (136-145) 08/15/24 05:08 Potassium 4.9 mmol/L (3.5-5.1) 08/15/24 05:08 Chloride 101 mmol/L (98-107) 08/15/24 05:08 Carbon Dioxide 24.1 mmol/L (21-32) 08/15/24 05:08 BUN 13 mg/dL (7-18) 08/15/24 05:08 Creatinine 0.85 mg/dL (0.70-1.30) 08/15/24 05:08 Est GFR (MDRD) Af Amer > 60 (>60) 08/15/24 05:08 Est GFR (MDRD) Non-Af > 60 (>60) 08/15/24 05:08 Glucose 163 mg/dL (65-99) H 08/15/24 05:08 POC Glucose (mg/dL) 237 mg/dL (65-99) H 08/14/24 16:27 Lactic Acid 2.0 mmol/L (0.4-2.0) 08/13/24 18:10 Calcium 8.4 mg/dL (8.5-10.1) L 08/15/24 05:08 Corrected Calcium 10.1 mg/dL (8.5-10.1) 08/15/24 05:08 Magnesium 2.0 mg/dL (2.0-2.9) 08/15/24 05:08 Total Bilirubin 0.50 mg/dL (0.2-1.0) 08/15/24 05:08 AST 12 Units/L (15-37) L 08/15/24 05:08 ALT 23 Units/L (12-78) 08/15/24 05:08 Alkaline Phosphatase 132 Units/L (46-116) H 08/15/24 05:08 Total Protein 6.5 g/dL (6.4-8.2) 08/15/24 05:08 Albumin 1.9 g/dL (3.4-5.0) L 08/15/24 05:08 Globulin 4.6 g/dL (2.5-4.5) H 08/15/24 05:08 Albumin/Globulin Ratio 0.4 Ratio (1.1-2.1) L 08/15/24 05:08 Specimen Type Clean catch urine 08/13/24 18:55 Urine Color Yellow (YELLOW) 08/13/24 18:55 Urine Appearance Clear (CLEAR) 08/13/24 18:55 Urine pH 8.0 (5.0 - 8.0) 08/13/24 18:55 Ur Specific [place] 1.015 (1.000-1.030) 08/13/24 18:55 Urine Protein 1+ (NEGATIVE) 08/13/24 18:55 Urine Glucose (UA) Negative (NEGATIVE) 08/13/24 18:55 Urine Ketones Negative (NEGATIVE) 08/13/24 18:55 Urine Blood 2+ (NEGATIVE) 08/13/24 18:55 Urine Nitrite Negative (NEGATIVE) 08/13/24 18:55 Urine Bilirubin Negative (NEGATIVE) 08/13/24 18:55 Urine Urobilinogen 1+ (NORMAL) 08/13/24 18:55 Ur Leukocyte Esterase 1+ (NEGATIVE) 08/13/24 18:55 Urine RBC 10-20 /HPF (0-3) A 08/13/24 18:55 Urine WBC 0-2 /HPF (0-5) 08/13/24 18:55 Ur Squamous Epith Cells Few /HPF (NEGATIVE) 08/13/24 18:55 Urine Bacteria Negative /HPF (NEGATIVE) 08/13/24 18:55 Ur Culture Indicated? No/not indicated 08/13/24 18:55 SARS-CoV-2 (PCR) Negative (NEGATIVE) 08/13/24 18:00 Influenza Type A (PCR) Negative (NEGATIVE) 08/13/24 18:00 Influenza Type B (PCR) Negative (NEGATIVE) 08/13/24 18:00 RSV (PCR) Negative (NEGATIVE) 08/13/24 18:00 Opioid Opioid Risk Tool Age (Kit box if 16-45): No History of Preadolescent Sexual Abuse: No Total: 0 Total Score Risk Category: Low Risk Copyright: Bang GAR[employer] predicting aberrant behaviors Discharge Plan Diagnosis Discharge Problem: Generalized weakness, Acute dehydration Hypotension Qualifiers: Hypotension type: unspecified hypotension type Qualified Code(s): I95.9 - Hypotension, unspecified Lung cancer Qualifiers: Laterality: unspecified laterality Lung location: unspecified part of lung Q ualified Code(s): C34.90 - Malignant neoplasm of unspecified part of unspecified bronchus or lung Neutropenia Qualifiers: Neutropenia type: unspecified Qualified Code(s): D70.9 - Neutropenia, unspecified Discharge Plan Patient Disposition: 09 ADMITTED INPATIENT Condition: Stable
[2024-08-13] MEDS ORDERED: NS 1,000 ML IV 1,000 ML ONE (18:51)
[2024-08-13] MEDS: NS 1,000 ML IV 1,000 ML IV ONE (18:59)
[2024-08-13 19:04] LABS: BILIRUBIN,URINE NEGATIVE (NEGATIVE); BLOOD/HEMOGLOBIN,URINE 2+ (NEGATIVE); GLUCOSE, URINE NEGATIVE (NEGATIVE); KETONES,URINE NEGATIVE (NEGATIVE); LEUKOCYTE ESTERASE ,URINE 1+ (NEGATIVE); NITRITES,URINE NEGATIVE (NEGATIVE); PROTEIN,URINE 1+ (NEGATIVE); UROBILINOGEN,URINE 1+ (NORMAL)
[2024-08-13 19:06] LABS: APPEARANCE,URINE CLEAR (CLEAR); COLOR,URINE YELLOW (YELLOW)
[2024-08-13 19:11] LABS: BACTERIA,URINE NEGATIVE /HPF (NEGATIVE); SQUAMOUS EPITHELIAL CELL,UR FEW /HPF (NEGATIVE)
--- NOTE | 2024-08-13 20:06 | CT ---
EXAM: CT ABDOMEN AND PELVIS WITHOUT CONTRAST HISTORY: c/o weakness, nausea and confusion. Pt presents to ED and is pale, weak, verbal responses are delayed or pt states "I don't know". No family at bedside during triage. Pt states "I just feel so bad"; PT REFUSED TO BRING ARM UP ABOVE HEAD COMPARISON: 03/15/2024. TECHNIQUE: Axial CT images were obtained through the abdomen and pelvis without contrast. Coronal reformatted images were included. All CT scans at this facility use dose modulation, iterative reconstruction, and/or weight based dosing when appropriate to reduce radiation dose to as low as reasonably achievable. FINDINGS: Please note that without the use of intravenous contrast, evaluation of organ parenchyma is limited. LOWER THORAX: Moderate-sized left-sided pleural effusion. ABDOMEN: LIVER: Normal GALLBLADDER: Normal SPLEEN: Normal PANCREAS: Normal KIDNEYS: Bilateral renal cysts. Punctate nonobstructing nephrolithiasis bilaterally. No hydronephrosis of either kidney. ADRENAL GLANDS: Normal GI TRACT: Normal course and caliber LYMPH NODES: No enlarged nodes VESSELS: Moderate to severe atherosclerotic disease. This is incompletely evaluated on this noncontrast exam. PERITONEUM / RETROPERITONEUM: No free intraperitoneal air or free fluid. PELVIS: BLADDER: Normal GENITALS: Normal BONES: Moderate to severe multilevel degenerative change. No acute osseous abnormality. IMPRESSION: 1. No obstructive or inflammatory changes given the noncontrast exam. 2. Bilateral nonobstructing nephrolithiasis. THIS IS AN ELECTRONICALLY VERIFIED FINAL REPORT 08/13/2024 8:03 PM - Electronically signed by Alexander Eaton MD
--- NOTE | 2024-08-13 22:14 | DR.N/VMALE ---
HPI Time Seen Time Seen by Provider: 08/13/24 18:43 Primary Care Physician Primary Care Physician: Regis Mcmahon Chief Complaint:: EMS called to home w/ c/o weakness, nausea and confusion. Pt presents to ED and is pale, weak, verbal responses are delayed or pt states "I don't know". No family at bedside during triage. Pt states "I just feel so bad"; admits weakness, nausea, left side abdominal pain at lower rib area and decreased PO intake COVID-19 Coronavirus risk:travel/contact w/high risk person: No Has patient experienced Coronavirus symptoms: No Source History Provided: Patient and EMS Mode of Arrival Mode of Arrival: EMS Timing Onset of Chief Complaint: 08/12/24 PMH PMH Past Medical History: Yes Past Medical History: Anemia, Arthritis, COPD, Diabetes, Dyslipidemia, GERD, Hypertension and Hyperthyroidism Past Medical History Comment: hx LLE DVT, lung cancer, T2DM, PVD, neuropathy, OA, glaucoma Past Surgical History: Yes Surgical History: Angioplasty/Stents, Joint Replacement, Tonsillectomy and Other Past Surgical History Comment: cardiac stents x6, DVT LLL stents, PAC LCW Family History History of Family Medical Conditions: Yes Family Medical History: Diabetes Mellitus, [place] and Hypertension Social History Does any household member use tobacco: No Alcohol Use: None Do you use any recreational Drugs:: No Lives With: Spouse Lives Where: Home Travel Risk Coronavirus risk:travel/contact w/high risk person: No Has patient experienced Coronavirus symptoms: No Infectious screening In the last 2 months have you had wt loss of >10#?: NO Have you had fever, night sweats or hemotysis?: No Have you traveled outside the country in the last 6 months?: No Isolation: Standard PE Vital Signs Vitals: Vital Signs Temperature 99.3 F Pulse Rate 101 Pulse Rate 101 Pulse Rate 102 Pulse Rate 101 Pulse Rate 102 Pulse Rate 104 Pulse Rate 104 Pulse Rate 105 Pulse Rate 105 Pulse Rate 105 Pulse Rate 105 Pulse Rate 106 Pulse Rate 106 Pulse Rate 105 Pulse Rate 105 Pulse Rate 107 Pulse Rate 107 Pulse Rate 108 Pulse Rate 109 Pulse Rate 110 Pulse Rate 112 Pulse Rate 116 Pulse Rate 109 Pulse Rate 109 Pulse Rate 109 Pulse Rate 110 Pulse Rate 109 Respiratory Rate 16 Respiratory Rate 19 Respiratory Rate 21 Respiratory Rate 12 Respiratory Rate 17 Respiratory Rate 10 Respiratory Rate 20 Respiratory Rate 18 Respiratory Rate 20 Respiratory Rate 19 Respiratory Rate 18 Respiratory Rate 17 Respiratory Rate 15 Respiratory Rate 21 Respiratory Rate 22 Respiratory Rate 18 Respiratory Rate 17 Respiratory Rate 19 Respiratory Rate 15 Respiratory Rate 17 Respiratory Rate 20 Respiratory Rate 21 Respiratory Rate 18 Respiratory Rate 17 Respiratory Rate 19 Respiratory Rate 17 Respiratory Rate 17 Blood Pressure 89/62 Blood Pressure 100/60 Blood Pressure 100/60 Blood Pressure 100/60 Blood Pressure 100/60 Blood Pressure 98/56 Blood Pressure 98/56 Blood Pressure 113/56 Blood Pressure 109/61 Blood Pressure 131/66 Blood Pressure 131/66 Blood Pressure 127/65 Blood Pressure 127/65 Blood Pressure 127/62 Blood Pressure 128/67 Blood Pressure 125/66 O2 Sat by Pulse Oximetry 99 O2 Sat by Pulse Oximetry 99 O2 Sat by Pulse Oximetry 96 O2 Sat by Pulse Oximetry 97 COURSE Treatment Treatment: PATIENT SIGN OUT TO ME AT CHANGE OF SHIFT BY DR. CABALLERO. LABS AND CT DISCUSSED WITH PATIENT AND HIS . PATIET ADMITTED TO HOSPITAL FOR FURTHER MANAGEMENT. HAVE DISCUSSED PATIENT WITH DR. GAITAN. HE WILL ADMIT PATIENT. [facility] Labs Reviewed Laboratory Results Reviewed?: Yes 08/14/24 05:07 08/14/24 05:07 Laboratory: 08/13/24 18:17 Blood Blood Culture - Preliminary 08/13/24 18:10 Blood Blood Culture - Preliminary WBC 2.6 X10^3/uL (3.6-10.0) L 08/13/24 17:30 RBC 4.13 X10^6/uL (4.7-6.0) L 08/13/24 17:30 Hgb 11.5 g/dL (13.5-18.0) L 08/13/24 17:30 Hct 35.0 % (42.0-54.0) L 08/13/24 17:30 MCV 84.8 fL (80.0-100.0) 08/13/24 17:30 MCH 27.7 pg (27.0-34.0) 08/13/24 17:30 MCHC 32.7 g/dL (33.0-35.0) L 08/13/24 17:30 RDW 19.7 % (11.6-16.5) H 08/13/24 17:30 Plt Count 181 X10^3/uL (150.0-450.0) 08/13/24 17:30 Plt Count Comment Adequate (ADEQUATE) 08/13/24 17:30 MPV 8.0 fL (7.4-11.0) 08/13/24 17:30 Neut % (Auto) 58.0 % (42.0-75.0) 08/13/24 17:30 Lymph % (Auto) 26.2 % (21.0-51.0) 08/13/24 17:30 [place] % (Auto) 14.3 % (0.0-13.0) H 08/13/24 17:30 Eos % (Auto) 1.1 % (0.9-2.9) 08/13/24 17:30 Baso % (Auto) 0.4 % (0.2-1.0) 08/13/24 17:30 Neut # (Auto) 1.5 x10^3/uL (2.2-4.8) L 08/13/24 17:30 Lymph # (Auto) 0.7 X10^3/uL (1.3-2.9) L 08/13/24 17:30 [place] # (Auto) 0.4 x10^3/uL (0.3-0.8) 08/13/24 17:30 Eos # (Auto) 0.0 x10^3/uL (0.0-0.2) 08/13/24 17:30 Baso # (Auto) 0.0 X10^3/uL (0.0-0.1) 08/13/24 17:30 Absolute Nucleated RBC 0.1 /100WBC 08/13/24 17:30 Total Counted 50 08/13/24 17:30 Neutrophils % (Manual) 50 % (39-76) 08/13/24 17:30 Lymphocytes % (Manual) 36 % (13-43) 08/13/24 17:30 Monocytes % (Manual) 14 % (4-9) H 08/13/24 17:30 Plt Morphology Comment Normal (NORMAL) 08/13/24 17:30 RBC Morphology Abnormal (NORMAL) 08/13/24 17:30 Anisocytosis Slight A 08/13/24 17:30 PT 15.3 SECONDS (11.8-14.3) 08/13/24 17:30 INR Target Range - 08/13/24 17:30 INR 1.20 (0.8-1.3) 08/13/24 17:30 APTT 34.8 SECONDS (22.9-36.5) 08/13/24 17:30 PTT Comment - 08/13/24 17:30 Sodium 135 mmol/L (136-145) L 08/13/24 17:30 Corrected Sodium 137 mmol/L (136-145) 08/13/24 17:30 Potassium 4.9 mmol/L (3.5-5.1) 08/13/24 17:30 Chloride 100 mmol/L (98-107) 08/13/24 17:30 Carbon Dioxide 28.2 mmol/L (21-32) 08/13/24 17:30 BUN 15 mg/dL (7-18) 08/13/24 17:30 Creatinine 0.94 mg/dL (0.70-1.30) 08/13/24 17:30 Est GFR (MDRD) Af Amer > 60 (>60) 08/13/24 17:30 Est GFR (MDRD) Non-Af > 60 (>60) 08/13/24 17:30 Glucose 174 mg/dL (65-99) H 08/13/24 17:30 Lactic Acid 2.0 mmol/L (0.4-2.0) 08/13/24 18:10 Calcium 8.6 mg/dL (8.5-10.1) 08/13/24 17:30 Corrected Calcium 9.9 mg/dL (8.5-10.1) 08/13/24 17:30 Total Bilirubin 0.50 mg/dL (0.2-1.0) 08/13/24 17:30 AST 19 Units/L (15-37) 08/13/24 17:30 ALT 23 Units/L (12-78) 08/13/24 17:30 Alkaline Phosphatase 130 Units/L (46-116) H 08/13/24 17:30 Total Protein 6.5 g/dL (6.4-8.2) 08/13/24 17:30 Albumin 2.4 g/dL (3.4-5.0) L 08/13/24 17:30 Globulin 4.1 g/dL (2.5-4.5) 08/13/24 17:30 Albumin/Globulin Ratio 0.6 Ratio (1.1-2.1) L 08/13/24 17:30 Specimen Type Clean catch urine 08/13/24 18:55 Urine Color Yellow (YELLOW) 08/13/24 18:55 Urine Appearance Clear (CLEAR) 08/13/24 18:55 Urine pH 8.0 (5.0 - 8.0) 08/13/24 18:55 Ur Specific [place] 1.015 (1.000-1.030) 08/13/24 18:55 Urine Protein 1+ (NEGATIVE) 08/13/24 18:55 Urine Glucose (UA) Negative (NEGATIVE) 08/13/24 18:55 Urine Ketones Negative (NEGATIVE) 08/13/24 18:55 Urine Blood 2+ (NEGATIVE) 08/13/24 18:55 Urine Nitrite Negative (NEGATIVE) 08/13/24 18:55 Urine Bilirubin Negative (NEGATIVE) 08/13/24 18:55 Urine Urobilinogen 1+ (NORMAL) 08/13/24 18:55 Ur Leukocyte Esterase 1+ (NEGATIVE) 08/13/24 18:55 Urine RBC 10-20 /HPF (0-3) A 08/13/24 18:55 Urine WBC 0-2 /HPF (0-5) 08/13/24 18:55 Ur Squamous Epith Cells Few /HPF (NEGATIVE) 08/13/24 18:55 Urine Bacteria Negative /HPF (NEGATIVE) 08/13/24 18:55 Ur Culture Indicated? No/not indicated 08/13/24 18:55 SARS-CoV-2 (PCR) Negative (NEGATIVE) 08/13/24 18:00 Influenza Type A (PCR) Negative (NEGATIVE) 08/13/24 18:00 Influenza Type B (PCR) Negative (NEGATIVE) 08/13/24 18:00 RSV (PCR) Negative (NEGATIVE) 08/13/24 18:00 XRAY XRAY Interpreted by: Radiologist (report noted.) Opioid Opioid Risk Tool Age (Kit box if 16-45): No History of Preadolescent Sexual Abuse: No Total: 0 Total Score Risk Category: Low Risk Copyright: Bang GAR[employer] predicting aberrant behaviors Discharge Plan Diagnosis Discharge Problem: Generalized weakness, Acute dehydration Hypotension Qualifiers: Hypotension type: unspecified hypotension type Qualified Code(s): I95.9 - Hypotension, unspecified Lung cancer Qualifiers: Laterality: unspecified laterality Lung location: unspecified part of lung Q ualified Code(s): C34.90 - Malignant neoplasm of unspecified part of unspecified bronchus or lung Neutropenia Qualifiers: Neutropenia type: unspecified Qualified Code(s): D70.9 - Neutropenia, unspecified Discharge Plan Patient Disposition: 09 ADMITTED INPATIENT Condition: Stable
[2024-08-13] MEDS ORDERED: ZOSYN VIAL 3.375 GRAMS IV ONE (22:51)
[2024-08-13] MEDS: ZOSYN VIAL 3.375 GRAMS 3.375 G in NS 100 ML IV 100 ML IV ONE (22:51)
[2024-08-13] MEDS ORDERED: NS 100 ML IV 100 ML ONE (22:52)
[2024-08-13] MEDS: NS 250 ML IV 25 ML IV PRN (22:55)
[2024-08-13] MEDS ORDERED: NS 250 ML IV 25 ML IV PRN (23:36)
[2024-08-14] MEDS: ZOSYN VIAL 3.375 GRAMS 3.375 G in NS 100 ML IV 100 ML IV SCH (00:27)
--- NOTE | 2024-08-14 02:05 | RAD ---
EXAM: FRONTAL VIEW CHEST X-RAY HISTORY: Weakness COMPARISON: 06/26/19 25 FINDINGS: Numerous round shaped opacify structures are seen overlying the patient's right and left hemithorax. Right chest port is again noted. Please note exam is limited due to the overlying round shaped opacities. However no gross focal consolidation is seen. The heart size is within normal limits. The mediastinum is unremarkable. There is no evidence of pleural effusion or gross pneumothorax. The trachea is midline. IMPRESSION: 1. Numerous round shaped opacify structures are seen overlying the patient's right and left hemithorax. 2. Right chest port is again noted. 3. Please note exam is limited due to the overlying round shaped opacities. However no gross focal consolidation is seen. THIS IS AN ELECTRONICALLY VERIFIED FINAL REPORT 08/14/2024 2:02 AM - Electronically signed by Brenton Rader MD
[2024-08-14] MEDS: NORCO 10/325 TAB PO PRN (02:10)
[2024-08-14 06:05] LABS: BASOPHILS % (AUTO) 0.2 % (0.2-1.0); EOSINOPHILS % (AUTO) 1.2 % (0.9-2.9); HEMATOCRIT 30.8 % (42.0-54.0); HEMOGLOBIN 10.2 g/dL (13.5-18.0); LYMPHOCYTES # (AUTO) 0.9 X10^3/uL (1.3-2.9); LYMPHOCYTES % (AUTO) 30.9 % (21.0-51.0); MEAN CORPUSCULAR HEMOGLOBIN 27.9 pg (27.0-34.0); MEAN CORPUSCULAR HGB CONC 33.2 g/dL (33.0-35.0); MEAN PLATELET VOLUME 8.1 fL (7.4-11.0); MONOCYTES # (AUTO) 0.4 x10^3/uL (0.3-0.8); MONOCYTES % (AUTO) 14.7 % (0.0-13.0); NEUTROPHILS # (AUTO) 1.6 x10^3/uL (2.2-4.8); PLATELET COUNT 165 X10^3/uL (150.0-450.0); RED BLOOD COUNT 3.66 X10^6/uL (4.7-6.0); RED CELL DISTRIBUTION WIDTH 19.5 % (11.6-16.5)
[2024-08-14 06:13] LABS: INR 1.27 (0.8-1.3)
[2024-08-14 06:24] LABS: ALANINE AMINOTRANSFERASE 20 Units/L (12-78); ALKALINE PHOSPHATASE 111 Units/L (46-116); ASPARTATE AMINO TRANSFERASE 15 Units/L (15-37); BLOOD UREA NITROGEN 13 mg/dL (7-18); CALCIUM 8.4 mg/dL (8.5-10.1); CARBON DIOXIDE 26.8 mmol/L (21-32); CHLORIDE 103 mmol/L (98-107); GLUCOSE 54 mg/dL (65-99); MAGNESIUM 1.9 mg/dL (2.0-2.9); POTASSIUM 4.3 mmol/L (3.5-5.1); SODIUM 138 mmol/L (136-145); TOTAL PROTEIN 5.6 g/dL (6.4-8.2); eGFR NON BLACK RACES > 60 (>60)
[2024-08-14 06:27] LABS: BAND NEUTROPHILS % 8 % (0-10)
[2024-08-14 06:28] LABS: ANISOCYTOSIS SLIGHT; PLATELET MORPHOLOGY COMMENT NORMAL (NORMAL)
[2024-08-14] MEDS ORDERED: CONSULT PHARMACY - POTASSIUM & MAGNESIUM XX SCH (08:00)
[2024-08-14] MEDS: CORDARONE TAB 200 MG PO SCH (08:21)
[2024-08-14] MEDS: MAG-OX TAB PO SCH (08:21)
[2024-08-14] MEDS: FLOMAX PO SCH (08:21)
[2024-08-14] MEDS: POTASSIUM CHLORIDE LIQ PO SCH (08:22)
[2024-08-14] MEDS: SYNTHROID 150 mcg TAB PO SCH (08:22)
[2024-08-14] MEDS: PLAVIX PO SCH (08:22)
[2024-08-14] MEDS: FERROUS GLUCONATE PO SCH (08:22)
[2024-08-14] MEDS: PriLOSEC PO SCH (08:22)
[2024-08-14] MEDS: PEPCID TAB 40 MG PO SCH (08:22)
[2024-08-14] MEDS: ELIQUIS PO SCH (08:22)
[2024-08-14] MEDS ORDERED: PATIENT'S HOME MEDICATION (Potassium Chloride 10 mEq capsule, extended release) PO SCH (09:00)
--- NOTE | 2024-08-14 09:31 | DR.H&P ---
H&P History & Physical for Day of: H&P Date: 08/14/24 Chief Complaint Chief Complaint: weakness, poor oral intake History of Present Illness History of Present Illness: Mr Stack is a 68-year-old male with a past medical history of COPD, type 2 diabetes, CAD status post PCI, history of DVT, hypertension, anemia and lung cancer with recent recurrence presented with generalized weakness, fatigue and poor oral intake. He recently started another round of chemotherapy for lung cancer recurrence. He has completed chemotherapy, radiation and CyberKnife in the past. He is currently on chemotherapy every 3 weeks and Keytruda. His last chemo was a week ago. He started feeling very weak, fatigue and poor oral intake for the past few days. He has not been eating or drinking much for the past couple days. His blood pressure has been low, does not take blood pressure medicines daily. ER workup included labs which showed anemia, normal renal function, normal lactic acid. CTAP was done which did not show any acute changes. Chest x-ray shows numerous round shape opacifications, no new consolidation or infection. UA showed RBCs and blood. Cultures were collected and he was started on IV antibiotics. His blood pressure this morning has been in the systolic 90s to 100. Labs/imaging reviewed: - WBC 3 hemoglobin 10.2 platelet 165 potassium 4.3 creatinine 0.70 glucose 54 magnesium 1.9 lactic acid 2.0 - CTAP reviewed - Chest x-ray reviewed - Urine culture and blood culture pending Plan: Admit to [facility] with telemetry, continue gentle hydration. Continue IV antibiotics. Follow pending cultures. Resume home medications. Hold antihypertensives. Resume metoprolol 12.5 mg twice daily. Chest x-ray in the a.m. Replace electrolytes as per protocol. Add DuoNebs. Physical therapy consult. Monitor a.m. labs and imaging. Past Medical History Past Medical History: Anemia, Arthritis, COPD, Diabetes, Dyslipidemia, GERD, Hypertension and Hyperthyroidism Past Surgical History Surgical History: Angioplasty/Stents, Joint Replacement, Tonsillectomy and Other Family History Family Medical History: Diabetes Mellitus and Heart Failure Social History Does patient currently use any type of tobacco product: No Type of Tobacco Use: None Does any household member use tobacco: No Alcohol Use: None Drug Use: None Medications Home Medications: Home Medications Medication Instructions Recorded Confirmed Type clopidogrel 75 mg tablet 75 mg PO QDAY 03/27/2308/13 History famotidine 40 mg tablet 40 mg PO DAILY 03/27/2307/29 History rosuvastatin 20 mg tablet 20 mg PO HS 03/27/23 5 History aspirin 81 mg tablet,delayed 81 mg PO HS 08/10/2307/29 History release (Vanda Low Dose Aspirin) montelukast 10 mg tablet 10 mg PO QPM 10/24/23 History amiodarone 200 mg tablet 200 mg PO QDAY 08/13/2407/29 History apixaban 5 mg tablet (Eliquis) 2.5 mg PO BID 08/13/24 08/13/24 History ferrous gluconate 324 mg (38 mg 324 mg PO QAM 08/13/24 08/13/24 History iron) tablet furosemide 20 mg tablet 20 mg PO BID 08/13/24 History hydrocodone 10 mg-acetaminophen 1 tab PO QID PRN 08/1308/13/24 History 325 mg tablet insulin aspart U-100 100 unit/mL See Rx Instructions . Route 08/13/24 08/13/24 History (3 mL) subcutaneous pen (Novolog .COMPLEX PRN diabetes mellitus FlexPen U-100 Insulin aspart) insulin glargine 100 unit/mL (3 60 unit subcut QDAY 08/13/24 History mL) subcutaneous pen (Basaglar KwikPen U-100 Insulin) levothyroxine 150 mcg tablet 150 mcg PO QAM 08/13/24 0 08/13/24 History metoprolol tartrate 50 mg tablet 25 mg PO BID 08/13/24 08/13/24 History omeprazole 20 mg capsule,delayed 20 mg PO QDAY 5 08/13/24 History release potassium chloride 10 mEq 10 meq PO BID 08/13/2408/13 History capsule,extended release Allergies Allergies Allergy/AdvReac Type Severity Reaction Status Date / Time No Known Drug Allergies Allergy Verified 08/13/24 18:09 Labs 08/14/24 05:07 08/14/24 05:07 Labs: Laboratory WBC 3.0 X10^3/uL (3.6-10.0) L 08/14/24 05:07 RBC 3.66 X10^6/uL (4.7-6.0) L 08/14/24 05:07 Hgb 10.2 g/dL (13.5-18.0) L 08/14/24 05:07 Hct 30.8 % (42.0-54.0) L 08/14/24 05:07 MCV 84.0 fL (80.0-100.0) 08/14/24 05:07 MCH 27.9 pg (27.0-34.0) 08/14/24 05:07 MCHC 33.2 g/dL (33.0-35.0) 08/14/24 05:07 RDW 19.5 % (11.6-16.5) H 08/14/24 05:07 Plt Count 165 X10^3/uL (150.0-450.0) 08/14/24 05:07 Plt Count Comment Adequate (ADEQUATE) 08/14/24 05:07 MPV 8.1 fL (7.4-11.0) 08/14/24 05:07 Neut % (Auto) 53.0 % (42.0-75.0) 08/14/24 05:07 Lymph % (Auto) 30.9 % (21.0-51.0) 08/14/24 05:07 [place] % (Auto) 14.7 % (0.0-13.0) H 08/14/24 05:07 Eos % (Auto) 1.2 % (0.9-2.9) 08/14/24 05:07 Baso % (Auto) 0.2 % (0.2-1.0) 08/14/24 05:07 Neut # (Auto) 1.6 x10^3/uL (2.2-4.8) L 08/14/24 05:07 Lymph # (Auto) 0.9 X10^3/uL (1.3-2.9) L 08/14/24 05:07 [place] # (Auto) 0.4 x10^3/uL (0.3-0.8) 08/14/24 05:07 Eos # (Auto) 0.0 x10^3/uL (0.0-0.2) 08/14/24 05:07 Baso # (Auto) 0.0 X10^3/uL (0.0-0.1) 08/14/24 05:07 Absolute Nucleated RBC 0.2 /100WBC 08/14/24 05:07 Total Counted 25 08/14/24 05:07 Neutrophils % (Manual) 48 % (39-76) 08/14/24 05:07 Band Neutrophils % 8 % (0-10) 08/14/24 05:07 Lymphocytes % (Manual) 32 % (13-43) 08/14/24 05:07 Monocytes % (Manual) 8 % (4-9) 08/14/24 05:07 Eosinophils % (Manual) 4 % (0-6) 08/14/24 05:07 Plt Morphology Comment Normal (NORMAL) 08/14/24 05:07 RBC Morphology Abnormal (NORMAL) 08/14/24 05:07 Anisocytosis Slight A 08/14/24 05:07 PT 16.0 SECONDS (11.8-14.3) 08/14/24 05:07 INR Target Range - 08/14/24 05:07 INR 1.27 (0.8-1.3) 08/14/24 05:07 APTT 35.4 SECONDS (22.9-36.5) 08/14/24 05:07 PTT Comment - 08/14/24 05:07 Sodium 138 mmol/L (136-145) 08/14/24 05:07 Corrected Sodium TNP 08/14/24 05:07 Potassium 4.3 mmol/L (3.5-5.1) 08/14/24 05:07 Chloride 103 mmol/L (98-107) 08/14/24 05:07 Carbon Dioxide 26.8 mmol/L (21-32) 08/14/24 05:07 BUN 13 mg/dL (7-18) 08/14/24 05:07 Creatinine 0.70 mg/dL (0.70-1.30) 08/14/24 05:07 Est GFR (MDRD) Af Amer > 60 (>60) 08/14/24 05:07 Est GFR (MDRD) Non-Af > 60 (>60) 08/14/24 05:07 Glucose 54 mg/dL (65-99) L 08/14/24 05:07 Lactic Acid 2.0 mmol/L (0.4-2.0) 08/13/24 18:10 Calcium 8.4 mg/dL (8.5-10.1) L 08/14/24 05:07 Corrected Calcium 10.0 mg/dL (8.5-10.1) 08/14/24 05:07 Magnesium 1.9 mg/dL (2.0-2.9) L 08/14/24 05:07 Total Bilirubin 0.70 mg/dL (0.2-1.0) 08/14/24 05:07 AST 15 Units/L (15-37) 08/14/24 05:07 ALT 20 Units/L (12-78) 08/14/24 05:07 Alkaline Phosphatase 111 Units/L (46-116) 08/14/24 05:07 Total Protein 5.6 g/dL (6.4-8.2) L 08/14/24 05:07 Albumin 2.0 g/dL (3.4-5.0) L 08/14/24 05:07 Globulin 3.6 g/dL (2.5-4.5) 08/14/24 05:07 Albumin/Globulin Ratio 0.6 Ratio (1.1-2.1) L 08/14/24 05:07 Specimen Type Clean catch urine 08/13/24 18:55 Urine Color Yellow (YELLOW) 08/13/24 18:55 Urine Appearance Clear (CLEAR) 08/13/24 18:55 Urine pH 8.0 (5.0 - 8.0) 08/13/24 18:55 Ur Specific [place] 1.015 (1.000-1.030) 08/13/24 18:55 Urine Protein 1+ (NEGATIVE) 08/13/24 18:55 Urine Glucose (UA) Negative (NEGATIVE) 08/13/24 18:55 Urine Ketones Negative (NEGATIVE) 08/13/24 18:55 Urine Blood 2+ (NEGATIVE) 08/13/24 18:55 Urine Nitrite Negative (NEGATIVE) 08/13/24 18:55 Urine Bilirubin Negative (NEGATIVE) 08/13/24 18:55 Urine Urobilinogen 1+ (NORMAL) 08/13/24 18:55 Ur Leukocyte Esterase 1+ (NEGATIVE) 08/13/24 18:55 Urine RBC 10-20 /HPF (0-3) A 08/13/24 18:55 Urine WBC 0-2 /HPF (0-5) 08/13/24 18:55 Ur Squamous Epith Cells Few /HPF (NEGATIVE) 08/13/24 18:55 Urine Bacteria Negative /HPF (NEGATIVE) 08/13/24 18:55 Ur Culture Indicated? No/not indicated 08/13/24 18:55 SARS-CoV-2 (PCR) Negative (NEGATIVE) 08/13/24 18:00 Influenza Type A (PCR) Negative (NEGATIVE) 08/13/24 18:00 Influenza Type B (PCR) Negative (NEGATIVE) 08/13/24 18:00 RSV (PCR) Negative (NEGATIVE) 08/13/24 18:00 Review of Systems Constitutional: Weakness Eyes: No Symptoms Reported ENT: No Symptoms Reported Respiratory: Shortness of Breath and SOB with Excertion Cardiovascular: No Symptoms Reported Gastrointestinal: No Symptoms Reported Genitourinary: No Symptoms Reported Musculoskeletal: No Symptoms Reported Skin: No Symptoms Reported Neurological: No Symptoms Reported Physical Exam Vital Signs: Vital Signs Temperature 97.9 F Temperature 98.4 F Pulse Rate [Left Brachial] 98 Pulse Rate [Left Brachial] 98 Respiratory Rate 20 Respiratory Rate 18 Respiratory Rate 19 Respiratory Rate 18 Blood Pressure [Left Arm] 114/60 Blood Pressure [Left Arm] 95/60 O2 Sat by Pulse Oximetry 96 O2 Sat by Pulse Oximetry 95 Oriented: Normal Respiratory: Diminished Throughout Cardiovascular: Normal Auscultation: Bowel Sounds: Normal Palpation: Normal Tenderness: Normal Skin: Normal Musculoskeletal: Normal Psychiatric: Normal Mood Description: Calm Affect: Normal Speech Pattern: Clear and Appropriate Assessment/Plan (1) Neutropenia: Qualifiers: Neutropenia type: unspecified Qualified Code(s): D70.9 - Neutropenia, unspecified Status: Acute (2) Lung cancer: Qualifiers: Laterality: unspecified laterality Lung location: unspecified part of lung Qualified Code(s): C34.90 - Malignant neoplasm of unspecified part of unspecified bronchus or lung Status: Chronic (3) Acute dehydration: Status: Acute (4) Generalized weakness: Status: Acute (5) Hypotension: Qualifiers: Hypotension type: unspecified hypotension type Qualified Code(s): I95.9 - Hypotension, unspecified Status: Acute (6) Diabetes mellitus: Qualifiers: Diabetes mellitus complication status: without complication Diabetes mellitus intermediate manager insulin use: without care home use Diabetes mellitus type: t ype 2 Qualified Code(s): E11.9 - Type 2 diabetes mellitus without complications Status: Chronic (7) COPD (chronic obstructive pulmonary disease): Qualifiers: COPD type: unspecified COPD Qualified Code(s): J44.9 - Chronic obstructive pulmonary disease, unspecified Status: Chronic Review H&P Reviewed: Yes Patient was examined?: Yes
[2024-08-14] MEDS: XOPENEX 1.25 MG/3 ML NEBULE NEB SCH (13:29)
[2024-08-14] MEDS: TYLENOL 325 MG TAB PO PRN (15:05)
[2024-08-14] MEDS: NovoLIN R (or HumuLIN R) SUBCUT PRN (16:29)
[2024-08-14] MEDS: SNACK - Diabetic Appropriate PO SCH (19:14)
[2024-08-14] MEDS: SINGULAIR TAB 10 MG PO SCH (21:00)
[2024-08-14] MEDS: LOPRESSOR TAB 25 MG PO SCH (21:00)
[2024-08-14] MEDS: CRESTOR TAB 10 MG PO SCH (21:00)
[2024-08-14] MEDS: ASPIRIN EC 81 MG PO SCH (21:09)
--- NOTE | 2024-08-15 06:05 | RAD ---
EXAM: CHEST, 1 VIEW HISTORY: SOB, LUNG CANCER; ANEMIA, COPD, DM, GERD, HTN, HX LLE DVT, LUNG CA, PVD SX: ANGIOPLASTY/STENTS, JOINT REPLACEMENT, TONSILS, CARDIAC STENTS X 6, LVT LLL STENTS, PAC LCW COMPARISON: None. TECHNIQUE: FINDINGS: Moderate to large partially loculated left pleural effusion with underlying atelectasis/consolidation. Right lung field is grossly clear. Right Port-A-Cath with tip in the SVC. Cardiac enlargement. No pneumothorax. IMPRESSION: Findings as above THIS IS AN ELECTRONICALLY VERIFIED FINAL REPORT 08/15/2024 6:01 AM - Electronically signed by Mone Chiu MD
[2024-08-15 06:07] LABS: BASOPHILS % (AUTO) 0.4 % (0.2-1.0); EOSINOPHILS % (AUTO) 0.7 % (0.9-2.9); HEMATOCRIT 30.8 % (42.0-54.0); HEMOGLOBIN 10.3 g/dL (13.5-18.0); LYMPHOCYTES # (AUTO) 0.6 X10^3/uL (1.3-2.9); LYMPHOCYTES % (AUTO) 12.7 % (21.0-51.0); MEAN CORPUSCULAR HEMOGLOBIN 28.2 pg (27.0-34.0); MEAN CORPUSCULAR HGB CONC 33.4 g/dL (33.0-35.0); MEAN CORPUSCULAR VOLUME 84.3 fL (80.0-100.0); MEAN PLATELET VOLUME 8.4 fL (7.4-11.0); MONOCYTES # (AUTO) 0.6 x10^3/uL (0.3-0.8); MONOCYTES % (AUTO) 13.6 % (0.0-13.0); NEUTROPHILS # (AUTO) 3.4 x10^3/uL (2.2-4.8); NEUTROPHILS % (AUTO) 72.6 % (42.0-75.0); PLATELET COUNT 177 X10^3/uL (150.0-450.0); RED BLOOD COUNT 3.66 X10^6/uL (4.7-6.0); RED CELL DISTRIBUTION WIDTH 19.2 % (11.6-16.5); WHITE BLOOD COUNT 4.7 X10^3/uL (3.6-10.0)
[2024-08-15 06:27] LABS: ALANINE AMINOTRANSFERASE 23 Units/L (12-78); ALBUMIN 1.9 g/dL (3.4-5.0); ALKALINE PHOSPHATASE 132 Units/L (46-116); ASPARTATE AMINO TRANSFERASE 12 Units/L (15-37); BLOOD UREA NITROGEN 13 mg/dL (7-18); CALCIUM 8.4 mg/dL (8.5-10.1); CARBON DIOXIDE 24.1 mmol/L (21-32); CHLORIDE 101 mmol/L (98-107); COR CA(FOR HYPOALB) 10.1 mg/dL (8.5-10.1); COR NA(FOR HYPERGLY) 136 mmol/L (136-145); CREATININE 0.85 mg/dL (0.70-1.30); GLUCOSE 163 mg/dL (65-99); POTASSIUM 4.9 mmol/L (3.5-5.1); SODIUM 134 mmol/L (136-145); TOTAL PROTEIN 6.5 g/dL (6.4-8.2); eGFR NON BLACK RACES > 60 (>60)
[2024-08-15 06:42] LABS: ANISOCYTOSIS SLIGHT; BAND NEUTROPHILS % 14 % (0-10); METAMYELOCYTES % 1; MYELOCYTES % 2; PLATELET MORPHOLOGY COMMENT NORMAL (NORMAL)
[2024-08-15] MEDS: ZOFRAN INJ 4 MG VIAL IVP PRN (09:36)
[2024-08-15] MEDS ORDERED: LIORESAL PO PRN (09:57)
--- NOTE | 2024-08-15 09:57 | PCM.PROG ---
Progress Note Progress Note for Day of Date of Exam: 08/15/24 Subjective Subjective: Patient seen at bedside, no acute events overnight. He does feel slightly worse today with nausea and vomiting. He did have a temperature of 101.4. Chest x-ray this morning showed loculated left pleural effusion. He is currently on 2 L nasal cannula. He remains on IV antibiotics. Labs/imaging reviewed: - WBC 4.7 hemoglobin 10.3 platelet 177 potassium 4.9 creatinine 0.85 - Chest x-ray loculated left pleural effusion - Blood cultures on admission no growth, repeat blood cultures pending - Urine culture contamination Plan: Continue to monitor with telemetry. Continue IV Zosyn. Will order CT chest with contrast to evaluate further. Wean oxygen as tolerated. Zofran as needed. Continue home medications. Follow pending cultures. Check KIT respiratory and UTI panel. Replace electrolytes as per protocol. Physical therapy as tolerated. Monitor a.m. labs and imaging. Time spent for clinical assessment, reviewing labs and imaging, sickle exam, decision making and documentation greater than 45 minutes. Past Medical Family Social History Allergies: Allergies No Known Drug Allergies Allergy (Verified 08/13/24 18:09) Vital Signs and I&O's Vital Signs: Vital Signs Temperature 98.6 F Pulse Rate [Left Brachial] 105 Respiratory Rate 19 Blood Pressure [Left Arm] 105/58 O2 Sat by Pulse Oximetry 96 Intake and Output: Intake & Output 08/12/24 08/13/24 08/14/24 08/15/24 23:59 23:59 23:59 23:59 Intake Total 355 / 355 395 / 395 Output Total 300 / 300 300 / 300 Balance 55 / 55 95 / 95 Physical Exam Oriented: Normal Respiratory: Generalized and Diminished Cardiovascular: Tachycardia Auscultation: Bowel Sounds: Normal Palpation: Normal Tenderness: Normal Skin: Normal Musculoskeletal: Normal Psychiatric: Normal Mood Description: Calm Affect: Normal Speech Pattern: Clear and Appropriate Laboratory and Diagnostics 08/15/24 05:08 08/15/24 05:08 Labs: 08/13/24 18:55 Urine,Clean Catch Urine Culture - Final 08/13/24 18:17 Blood Blood Culture - Preliminary 08/13/24 18:10 Blood Blood Culture - Preliminary Laboratory WBC 4.7 X10^3/uL (3.6-10.0) 08/15/24 05:08 RBC 3.66 X10^6/uL (4.7-6.0) L 08/15/24 05:08 Hgb 10.3 g/dL (13.5-18.0) L 08/15/24 05:08 Hct 30.8 % (42.0-54.0) L 08/15/24 05:08 MCV 84.3 fL (80.0-100.0) 08/15/24 05:08 MCH 28.2 pg (27.0-34.0) 08/15/24 05:08 MCHC 33.4 g/dL (33.0-35.0) 08/15/24 05:08 RDW 19.2 % (11.6-16.5) H 08/15/24 05:08 Plt Count 177 X10^3/uL (150.0-450.0) 08/15/24 05:08 Plt Count Comment Adequate (ADEQUATE) 08/15/24 05:08 MPV 8.4 fL (7.4-11.0) 08/15/24 05:08 Neut % (Auto) 72.6 % (42.0-75.0) 08/15/24 05:08 Lymph % (Auto) 12.7 % (21.0-51.0) L 08/15/24 05:08 [place] % (Auto) 13.6 % (0.0-13.0) H 08/15/24 05:08 Eos % (Auto) 0.7 % (0.9-2.9) L 08/15/24 05:08 Baso % (Auto) 0.4 % (0.2-1.0) 08/15/24 05:08 Neut # (Auto) 3.4 x10^3/uL (2.2-4.8) 08/15/24 05:08 Lymph # (Auto) 0.6 X10^3/uL (1.3-2.9) L 08/15/24 05:08 [place] # (Auto) 0.6 x10^3/uL (0.3-0.8) 08/15/24 05:08 Eos # (Auto) 0.0 x10^3/uL (0.0-0.2) 08/15/24 05:08 Baso # (Auto) 0.0 X10^3/uL (0.0-0.1) 08/15/24 05:08 Absolute Nucleated RBC 0.2 /100WBC 08/15/24 05:08 Total Counted 100 08/15/24 05:08 Neutrophils % (Manual) 62 % (39-76) 08/15/24 05:08 Band Neutrophils % 14 % (0-10) H 08/15/24 05:08 Lymphocytes % (Manual) 14 % (13-43) 08/15/24 05:08 Monocytes % (Manual) 6 % (4-9) 08/15/24 05:08 Eosinophils % (Manual) 1 % (0-6) 08/15/24 05:08 Metamyelocytes % 1 08/15/24 05:08 Myelocytes % 2 08/15/24 05:08 Plt Morphology Comment Normal (NORMAL) 08/15/24 05:08 RBC Morphology Abnormal (NORMAL) 08/15/24 05:08 Anisocytosis Slight A 08/15/24 05:08 PT 16.0 SECONDS (11.8-14.3) 08/14/24 05:07 INR Target Range - 08/14/24 05:07 INR 1.27 (0.8-1.3) 08/14/24 05:07 APTT 35.4 SECONDS (22.9-36.5) 08/14/24 05:07 PTT Comment - 08/14/24 05:07 Sodium 134 mmol/L (136-145) L 08/15/24 05:08 Corrected Sodium 136 mmol/L (136-145) 08/15/24 05:08 Potassium 4.9 mmol/L (3.5-5.1) 08/15/24 05:08 Chloride 101 mmol/L (98-107) 08/15/24 05:08 Carbon Dioxide 24.1 mmol/L (21-32) 08/15/24 05:08 BUN 13 mg/dL (7-18) 08/15/24 05:08 Creatinine 0.85 mg/dL (0.70-1.30) 08/15/24 05:08 Est GFR (MDRD) Af Amer > 60 (>60) 08/15/24 05:08 Est GFR (MDRD) Non-Af > 60 (>60) 08/15/24 05:08 Glucose 163 mg/dL (65-99) H 08/15/24 05:08 POC Glucose (mg/dL) 237 mg/dL (65-99) H 08/14/24 16:27 Lactic Acid 2.0 mmol/L (0.4-2.0) 08/13/24 18:10 Calcium 8.4 mg/dL (8.5-10.1) L 08/15/24 05:08 Corrected Calcium 10.1 mg/dL (8.5-10.1) 08/15/24 05:08 Magnesium 2.0 mg/dL (2.0-2.9) 08/15/24 05:08 Total Bilirubin 0.50 mg/dL (0.2-1.0) 08/15/24 05:08 AST 12 Units/L (15-37) L 08/15/24 05:08 ALT 23 Units/L (12-78) 08/15/24 05:08 Alkaline Phosphatase 132 Units/L (46-116) H 08/15/24 05:08 Total Protein 6.5 g/dL (6.4-8.2) 08/15/24 05:08 Albumin 1.9 g/dL (3.4-5.0) L 08/15/24 05:08 Globulin 4.6 g/dL (2.5-4.5) H 08/15/24 05:08 Albumin/Globulin Ratio 0.4 Ratio (1.1-2.1) L 08/15/24 05:08 Specimen Type Clean catch urine 08/13/24 18:55 Urine Color Yellow (YELLOW) 08/13/24 18:55 Urine Appearance Clear (CLEAR) 08/13/24 18:55 Urine pH 8.0 (5.0 - 8.0) 08/13/24 18:55 Ur Specific [place] 1.015 (1.000-1.030) 08/13/24 18:55 Urine Protein 1+ (NEGATIVE) 08/13/24 18:55 Urine Glucose (UA) Negative (NEGATIVE) 08/13/24 18:55 Urine Ketones Negative (NEGATIVE) 08/13/24 18:55 Urine Blood 2+ (NEGATIVE) 08/13/24 18:55 Urine Nitrite Negative (NEGATIVE) 08/13/24 18:55 Urine Bilirubin Negative (NEGATIVE) 08/13/24 18:55 Urine Urobilinogen 1+ (NORMAL) 08/13/24 18:55 Ur Leukocyte Esterase 1+ (NEGATIVE) 08/13/24 18:55 Urine RBC 10-20 /HPF (0-3) A 08/13/24 18:55 Urine WBC 0-2 /HPF (0-5) 08/13/24 18:55 Ur Squamous Epith Cells Few /HPF (NEGATIVE) 08/13/24 18:55 Urine Bacteria Negative /HPF (NEGATIVE) 08/13/24 18:55 Ur Culture Indicated? No/not indicated 08/13/24 18:55 SARS-CoV-2 (PCR) Negative (NEGATIVE) 08/13/24 18:00 Influenza Type A (PCR) Negative (NEGATIVE) 08/13/24 18:00 Influenza Type B (PCR) Negative (NEGATIVE) 08/13/24 18:00 RSV (PCR) Negative (NEGATIVE) 08/13/24 18:00 Plan (1) Pleural effusion: Status: Acute (2) Acute dehydration: Status: Acute (3) Lung cancer: Status: Chronic Qualifiers: Laterality: unspecified laterality Lung location: unspecified part of lung Qualified Code(s): C34.90 - Malignant neoplasm of unspecified part of unspecified bronchus or lung (4) Generalized weakness: Status: Acute (5) Hypotension: Status: Acute Qualifiers: Hypotension type: unspecified hypotension type Qualified Code(s): I95.9 - Hypotension, unspecified (6) Diabetes mellitus: Status: Chronic Qualifiers: Diabetes mellitus complication status: without complication Diabetes mellitus nursing home insulin use: without termite inspector use Diabetes mellitus type: t ype 2 Qualified Code(s): E11.9 - Type 2 diabetes mellitus without complications (7) COPD (chronic obstructive pulmonary disease): Status: Chronic Qualifiers: COPD type: unspecified COPD Qualified Code(s): J44.9 - Chronic obstructive pulmonary disease, unspecified (8) Malignant neoplasm of left lung: Status: Chronic Qualifiers: Lung location: upper lobe of lung Qualified Code(s): C34.12 - Malignant neoplasm of upper lobe, left bronchus or lung
[2024-08-15] MEDS ORDERED: LASIX PO SCH (10:00)
[2024-08-15] MEDS: PULMICORT NEB TX 0.5 MG NEB SCH (10:28)
--- NOTE | 2024-08-15 11:19 | CT ---
EXAMINATION: CHEST WITH CONTRAST HISTORY: worsening SOB, hx of lung cancer, pleural effusion; COMPARISON: None. TECHNIQUE: Mayda guous axial CT images of the thorax following intravenous contrast. Images reviewed in the axial imaging plane with reformatted sagittal and coronal images.The above CT scan was done with automated exposure control and the mA and kV was adjusted to obtain quality images according to patient size. FINDINGS: There is a large low-density left-sided pleural fluid collection central density 2 Hounsfield units. There is associated compressive atelectatic changes of the left lower lung field. Linear shaped opacity in the posterior medial inferior right lower lobe probable subsegmental atelectasis which warrants follow-up. There is marked irregular narrowing/occlusion of the left lower lobe bronchus. Moderate elevation of the left hemidiaphragm with volume loss of the left lung field. Normal enhancement of the heart and great vessels. Coronary artery calcifications. No evidence of thoracic aortic aneurysm or dissection. Soft tissue mass densities within the prevascular space measuring 4.9 x 3.3 cm, precarinal space 2.4 x 1.9 cm, aortic pulmonic window 2.7 x 2.5 cm, subcarinal space 2 x 1.4 cm, left pulmonary hilum 3 x 2.3 cm. Images through the upper abdomen demonstrate a 3 cm mass anterior midpole left kidney central measurement 17 Hounsfield units probable cyst, 3 cm mass central density 6 Hounsfield units lateral midpole right kidney probable cyst. 1.4 cm mass central density 21 Hounsfield units medial upper pole right kidney probable cyst which may be followed up with ultrasound. 1.3 cm mass central density 20 Hounsfield units posteromedial midpole left kidney probable cyst. Nonobstructing left nephrolithiasis. Spondylosis. Mild compression fracture with bony sclerotic changes superior endplate T6 vertebral level which should be clinically correlated. IMPRESSION: Large low-density left sided pleural fluid collection with associated compressive atelectatic changes of the left lower lung field. Marked irregular narrowing/occlusion of the left lower lobe bronchus with moderate elevation left hemidiaphragm/volume loss of the left lung field. Linear shaped opacity posteromedial inferior right lower lobe probable subsegmental atelectasis which warrants follow-up. Mediastinal and hilar adenopathy. Coronary artery calcifications. Probable bilateral renal cystic changes. Recommend outpatient follow-up renal ultrasound. Nonobstructing left nephrolithiasis. Mild compression fracture superior endplate of the T6 vertebral body which has a bony sclerotic appearance. Recommend follow-up. THIS IS AN ELECTRONICALLY VERIFIED FINAL REPORT 08/15/2024 11:16 AM - Electronically signed by Shala Nava MD
[2024-08-15] MEDS: LASIX PO SCH (11:31)
[2024-08-15] MEDS: COLACE CAP 100 MG PO PRN (11:31)
[2024-08-15] MEDS: KLOR-CON 10 MEQ TAB PO SCH (21:12)
[2024-08-16 06:09] LABS: BASOPHILS % (AUTO) 0.3 % (0.2-1.0); EOSINOPHILS % (AUTO) 0.3 % (0.9-2.9); HEMATOCRIT 27.6 % (42.0-54.0); HEMOGLOBIN 9.4 g/dL (13.5-18.0); LYMPHOCYTES # (AUTO) 0.8 X10^3/uL (1.3-2.9); LYMPHOCYTES % (AUTO) 8.3 % (21.0-51.0); MEAN CORPUSCULAR HEMOGLOBIN 28.5 pg (27.0-34.0); MEAN CORPUSCULAR VOLUME 83.7 fL (80.0-100.0); MEAN PLATELET VOLUME 8.3 fL (7.4-11.0); MONOCYTES # (AUTO) 0.6 x10^3/uL (0.3-0.8); MONOCYTES % (AUTO) 6.9 % (0.0-13.0); NEUTROPHILS # (AUTO) 7.7 x10^3/uL (2.2-4.8); NEUTROPHILS % (AUTO) 84.2 % (42.0-75.0); PLATELET COUNT 194 X10^3/uL (150.0-450.0); RED CELL DISTRIBUTION WIDTH 19.5 % (11.6-16.5); WHITE BLOOD COUNT 9.1 X10^3/uL (3.6-10.0)
[2024-08-16 06:19] LABS: ALANINE AMINOTRANSFERASE 28 Units/L (12-78); ALBUMIN 1.7 g/dL (3.4-5.0); ALKALINE PHOSPHATASE 159 Units/L (46-116); ASPARTATE AMINO TRANSFERASE 18 Units/L (15-37); BLOOD UREA NITROGEN 12 mg/dL (7-18); CALCIUM 8.4 mg/dL (8.5-10.1); CARBON DIOXIDE 23.5 mmol/L (21-32); CHLORIDE 102 mmol/L (98-107); COR CA(FOR HYPOALB) 10.2 mg/dL (8.5-10.1); COR NA(FOR HYPERGLY) 136 mmol/L (136-145); CREATININE 0.76 mg/dL (0.70-1.30); GLUCOSE 121 mg/dL (65-99); POTASSIUM 4.3 mmol/L (3.5-5.1); SODIUM 135 mmol/L (136-145); TOTAL PROTEIN 6.3 g/dL (6.4-8.2); eGFR NON BLACK RACES > 60 (>60)
--- NOTE | 2024-08-16 10:57 | PCM.PROG ---
Progress Note Progress Note for Day of Date of Exam: 08/16/24 Subjective Subjective: Patient sitting up on side of bed. He feels like he has some bloating. Not having much appetite. No acute events overnight. He was on room air this morning. He remains on IV antibiotics. Labs/imaging reviewed: -WBC 9.1, hemoglobin 9.4, platelets 194, sodium 136, potassium 4.3, creatinine 0.76, glucose 121 - CT chest revealed left-sided loculated pleural fluid. See report. - Blood cultures on admission no growth, repeat blood cultures pending - Urine culture contamination - AIT urine and respiratory pending Plan: Continue to monitor with telemetry. Continue IV Zosyn. Will add on Megace to help with appetite. Simethicone today for bloating. Will consult general surgery-Dr Orozco for further evaluation of large left-sided loculated pleural effusion. Restart home Lasix. Titrate/Wean oxygen as tolerated. I/S hourly. Zofran as needed. Continue home medications. Follow pending cultures. Check AIT respiratory and UTI panel. Replace electrolytes as per protocol. Physical therapy as tolerated. Monitor a.m. labs and imaging. Time spent for clinical assessment, reviewing labs and imaging, sickle exam, decision making and documentation greater than 45 minutes. Past Medical Family Social History Allergies: Allergies No Known Drug Allergies Allergy (Verified 08/13/24 18:09) Review of Systems ROS changes noted: see HPI Vital Signs and I&O's Vital Signs: Vital Signs Temperature 98.6 F Temperature 98.1 F Pulse Rate [Left Brachial] 105 Pulse Rate [Left Brachial] 98 Pulse Rate 95 Respiratory Rate 17 Respiratory Rate 20 Respiratory Rate 17 Blood Pressure [Left Arm] 95/50 Blood Pressure [Left Arm] 98/60 O2 Sat by Pulse Oximetry 93 O2 Sat by Pulse Oximetry 97 O2 Sat by Pulse Oximetry 93 Intake and Output: Intake & Output 08/13/24 08/14/24 08/15/24 08/16/24 23:59 23:59 23:59 23:59 Intake Total 355 / 355 2511 / 2511 248 / 248 Output Total 300 / 300 750 / 750 Balance 55 / 55 1761 / 1761 248 / 248 Physical Exam Oriented: Normal Respiratory: Generalized and Diminished Cardiovascular: Normal Auscultation: Bowel Sounds: Normal Palpation: Normal Tenderness: Normal Skin: Normal Musculoskeletal: Normal Psychiatric: Normal Mood Description: Calm Affect: Normal Speech Pattern: Clear and Appropriate Laboratory and Diagnostics 08/16/24 05:11 08/16/24 05:11 Labs: 08/14/24 15:13 Blood Blood Culture - Preliminary 08/14/24 15:07 Blood Blood Culture - Preliminary 08/13/24 18:55 Urine,Clean Catch Urine Culture - Final 08/13/24 18:17 Blood Blood Culture - Preliminary 08/13/24 18:10 Blood Blood Culture - Preliminary Laboratory WBC 9.1 X10^3/uL (3.6-10.0) 08/16/24 05:11 RBC 3.30 X10^6/uL (4.7-6.0) L 08/16/24 05:11 Hgb 9.4 g/dL (13.5-18.0) L 08/16/24 05:11 Hct 27.6 % (42.0-54.0) L 08/16/24 05:11 MCV 83.7 fL (80.0-100.0) 08/16/24 05:11 MCH 28.5 pg (27.0-34.0) 08/16/24 05:11 MCHC 34.0 g/dL (33.0-35.0) 08/16/24 05:11 RDW 19.5 % (11.6-16.5) H 08/16/24 05:11 Plt Count 194 X10^3/uL (150.0-450.0) 08/16/24 05:11 Plt Count Comment Adequate (ADEQUATE) 08/15/24 05:08 MPV 8.3 fL (7.4-11.0) 08/16/24 05:11 Neut % (Auto) 84.2 % (42.0-75.0) H 08/16/24 05:11 Lymph % (Auto) 8.3 % (21.0-51.0) L 08/16/24 05:11 [place] % (Auto) 6.9 % (0.0-13.0) 08/16/24 05:11 Eos % (Auto) 0.3 % (0.9-2.9) L 08/16/24 05:11 Baso % (Auto) 0.3 % (0.2-1.0) 08/16/24 05:11 Neut # (Auto) 7.7 x10^3/uL (2.2-4.8) H 08/16/24 05:11 Lymph # (Auto) 0.8 X10^3/uL (1.3-2.9) L 08/16/24 05:11 [place] # (Auto) 0.6 x10^3/uL (0.3-0.8) 08/16/24 05:11 Eos # (Auto) 0.0 x10^3/uL (0.0-0.2) 08/16/24 05:11 Baso # (Auto) 0.0 X10^3/uL (0.0-0.1) 08/16/24 05:11 Absolute Nucleated RBC 0.1 /100WBC 08/16/24 05:11 Total Counted 100 08/15/24 05:08 Neutrophils % (Manual) 62 % (39-76) 08/15/24 05:08 Band Neutrophils % 14 % (0-10) H 08/15/24 05:08 Lymphocytes % (Manual) 14 % (13-43) 08/15/24 05:08 Monocytes % (Manual) 6 % (4-9) 08/15/24 05:08 Eosinophils % (Manual) 1 % (0-6) 08/15/24 05:08 Metamyelocytes % 1 08/15/24 05:08 Myelocytes % 2 08/15/24 05:08 Plt Morphology Comment Normal (NORMAL) 08/15/24 05:08 RBC Morphology Abnormal (NORMAL) 08/15/24 05:08 Anisocytosis Slight A 08/15/24 05:08 PT 16.0 SECONDS (11.8-14.3) 08/14/24 05:07 INR Target Range - 08/14/24 05:07 INR 1.27 (0.8-1.3) 08/14/24 05:07 APTT 35.4 SECONDS (22.9-36.5) 08/14/24 05:07 PTT Comment - 08/14/24 05:07 Sodium 135 mmol/L (136-145) L 08/16/24 05:11 Corrected Sodium 136 mmol/L (136-145) 08/16/24 05:11 Potassium 4.3 mmol/L (3.5-5.1) 08/16/24 05:11 Chloride 102 mmol/L (98-107) 08/16/24 05:11 Carbon Dioxide 23.5 mmol/L (21-32) 08/16/24 05:11 BUN 12 mg/dL (7-18) 08/16/24 05:11 Creatinine 0.76 mg/dL (0.70-1.30) 08/16/24 05:11 Est GFR (MDRD) Af Amer > 60 (>60) 08/16/24 05:11 Est GFR (MDRD) Non-Af > 60 (>60) 08/16/24 05:11 Glucose 121 mg/dL (65-99) H 08/16/24 05:11 POC Glucose (mg/dL) 275 mg/dL (65-99) H 08/15/24 15:50 Lactic Acid 2.0 mmol/L (0.4-2.0) 08/13/24 18:10 Calcium 8.4 mg/dL (8.5-10.1) L 08/16/24 05:11 Corrected Calcium 10.2 mg/dL (8.5-10.1) H 08/16/24 05:11 Magnesium 2.0 mg/dL (2.0-2.9) 08/15/24 05:08 Total Bilirubin 0.50 mg/dL (0.2-1.0) 08/16/24 05:11 AST 18 Units/L (15-37) 08/16/24 05:11 ALT 28 Units/L (12-78) 08/16/24 05:11 Alkaline Phosphatase 159 Units/L (46-116) H 08/16/24 05:11 Total Protein 6.3 g/dL (6.4-8.2) L 08/16/24 05:11 Albumin 1.7 g/dL (3.4-5.0) L 08/16/24 05:11 Globulin 4.6 g/dL (2.5-4.5) H 08/16/24 05:11 Albumin/Globulin Ratio 0.4 Ratio (1.1-2.1) L 08/16/24 05:11 Specimen Type Clean catch urine 08/13/24 18:55 Urine Color Yellow (YELLOW) 08/13/24 18:55 Urine Appearance Clear (CLEAR) 08/13/24 18:55 Urine pH 8.0 (5.0 - 8.0) 08/13/24 18:55 Ur Specific [place] 1.015 (1.000-1.030) 08/13/24 18:55 Urine Protein 1+ (NEGATIVE) 08/13/24 18:55 Urine Glucose (UA) Negative (NEGATIVE) 08/13/24 18:55 Urine Ketones Negative (NEGATIVE) 08/13/24 18:55 Urine Blood 2+ (NEGATIVE) 08/13/24 18:55 Urine Nitrite Negative (NEGATIVE) 08/13/24 18:55 Urine Bilirubin Negative (NEGATIVE) 08/13/24 18:55 Urine Urobilinogen 1+ (NORMAL) 08/13/24 18:55 Ur Leukocyte Esterase 1+ (NEGATIVE) 08/13/24 18:55 Urine RBC 10-20 /HPF (0-3) A 08/13/24 18:55 Urine WBC 0-2 /HPF (0-5) 08/13/24 18:55 Ur Squamous Epith Cells Few /HPF (NEGATIVE) 08/13/24 18:55 Urine Bacteria Negative /HPF (NEGATIVE) 08/13/24 18:55 Ur Culture Indicated? No/not indicated 08/13/24 18:55 SARS-CoV-2 (PCR) Negative (NEGATIVE) 08/13/24 18:00 Influenza Type A (PCR) Negative (NEGATIVE) 08/13/24 18:00 Influenza Type B (PCR) Negative (NEGATIVE) 08/13/24 18:00 RSV (PCR) Negative (NEGATIVE) 08/13/24 18:00 Resp Viral Panel (PCR) See scanned report 08/15/24 10:26 Plan (1) Pleural effusion: Status: Acute (2) Acute dehydration: Status: Acute (3) Lung cancer: Status: Chronic Qualifiers: Laterality: unspecified laterality Lung location: unspecified part of lung Qualified Code(s): C34.90 - Malignant neoplasm of unspecified part of unspecified bronchus or lung (4) Generalized weakness: Status: Acute (5) Hypotension: Status: Acute Qualifiers: Hypotension type: unspecified hypotension type Qualified Code(s): I95.9 - Hypotension, unspecified (6) Diabetes mellitus: Status: Chronic Qualifiers: Diabetes mellitus complication status: without complication Diabetes mellitus superintendent terminal insulin use: without superintendent terminal use Diabetes mellitus type: t ype 2 Qualified Code(s): E11.9 - Type 2 diabetes mellitus without complications (7) COPD (chronic obstructive pulmonary disease): Status: Chronic Qualifiers: COPD type: unspecified COPD Qualified Code(s): J44.9 - Chronic obstructive pulmonary disease, unspecified (8) Malignant neoplasm of left lung: Status: Chronic Qualifiers: Lung location: upper lobe of lung Qualified Code(s): C34.12 - Malignant neoplasm of upper lobe, left bronchus or lung
[2024-08-16] MEDS: MEGACE PO SCH (11:19)
[2024-08-16] MEDS: MYLICON TAB 80 MG CHEW PO SCH (11:19)
[2024-08-16] MEDS: LASIX PO SCH (16:14)
[2024-08-16 22:14] VITALS: BMI 24.4
[2024-08-17 06:27] LABS: BASOPHILS % (AUTO) 0.3 % (0.2-1.0); EOSINOPHILS # (AUTO) 0.1 x10^3/uL (0.0-0.2); EOSINOPHILS % (AUTO) 0.5 % (0.9-2.9); HEMATOCRIT 27.2 % (42.0-54.0); LYMPHOCYTES # (AUTO) 0.8 X10^3/uL (1.3-2.9); LYMPHOCYTES % (AUTO) 7.5 % (21.0-51.0); MEAN CORPUSCULAR HEMOGLOBIN 27.8 pg (27.0-34.0); MEAN CORPUSCULAR VOLUME 84.5 fL (80.0-100.0); MONOCYTES # (AUTO) 0.6 x10^3/uL (0.3-0.8); NEUTROPHILS # (AUTO) 9.1 x10^3/uL (2.2-4.8); NEUTROPHILS % (AUTO) 85.7 % (42.0-75.0); PLATELET COUNT 217 X10^3/uL (150.0-450.0); RED BLOOD COUNT 3.22 X10^6/uL (4.7-6.0); RED CELL DISTRIBUTION WIDTH 19.6 % (11.6-16.5); WHITE BLOOD COUNT 10.6 X10^3/uL (3.6-10.0)
[2024-08-17 06:39] LABS: ALANINE AMINOTRANSFERASE 35 Units/L (12-78); ALBUMIN 1.6 g/dL (3.4-5.0); ALKALINE PHOSPHATASE 179 Units/L (46-116); ASPARTATE AMINO TRANSFERASE 27 Units/L (15-37); BLOOD UREA NITROGEN 11 mg/dL (7-18); CALCIUM 8.3 mg/dL (8.5-10.1); CHLORIDE 101 mmol/L (98-107); COR CA(FOR HYPOALB) 10.2 mg/dL (8.5-10.1); COR NA(FOR HYPERGLY) 134 mmol/L (136-145); CREATININE 0.78 mg/dL (0.70-1.30); GLUCOSE 128 mg/dL (65-99); POTASSIUM 4.4 mmol/L (3.5-5.1); SODIUM 133 mmol/L (136-145); TOTAL PROTEIN 6.3 g/dL (6.4-8.2); eGFR NON BLACK RACES > 60 (>60)
[2024-08-17 07:00] LABS: ANISOCYTOSIS SLIGHT; BAND NEUTROPHILS % 2 % (0-10); PLATELET MORPHOLOGY COMMENT NORMAL (NORMAL)
[2024-08-17 08:08] VITALS: BP 105/63; PULSE 103; TEMP 98.1; O2SAT 93
--- NOTE | 2024-08-17 08:22 | RAD ---
EXAM: CHEST, 1 VIEW HISTORY: LEFT PLEURAL EFFUSION HX OF LUNG CA; COMPARISON: 08/15/2024 TECHNIQUE: AP portable FINDINGS: Right chest port catheter in place. Stable cardiac silhouette. Elevated left hemidiaphragm. Stable layering left pleural effusion and left basilar opacities. No visible pneumothorax. IMPRESSION: Stable layering left pleural effusion and left basilar atelectasis/infiltrates. THIS IS AN ELECTRONICALLY VERIFIED FINAL REPORT 08/17/2024 8:19 AM - Electronically signed by Ranjit Green MD
[2024-08-17 09:10] VITALS: RESP 19
--- NOTE | 2024-08-21 11:06 | W.DIS.FURT ---
Summary of Discharge Discharge Summary of Date Date of Exam: 08/17/24 Admission Date Date of Admission: 08/13/24 Admission Diagnosis Patient Problems (Updated 08/15/24 @ 09:56 by Leola Reddy MD) Neutropenia (Acute) D70.9 Lung cancer (Chronic) C34.90 Acute dehydration (Acute) E86.0 Generalized weakness (Acute) R53.1 Hypotension (Acute) I95.9 Hospital Course: Patient admitted for pneumonia/ loculated left sided pleural effusion. His hospital/treatment course included IV antibiotics and I/S. General surgeryDr. Al was consulted for the pleural effusion but was unable to obtain any fluid after thoracentesis. Patient did not want to reattempt procedure again. Otherwise he did well with treatments and incentive spirometer. Cultures respiratory and urine were negative. Blood cultures were also negative. Patient is otherwise at baseline. He is not requiring supplemental oxygen. He was discharged in stable condition. Will send in cefdinir. He is instructed follow-up with his PCP in 1 week. 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 Vital Signs: Vital Signs (72 hours) 08/14/24 12:00 08/14/24 12:15 08/14/24 13:29 Temperature 100.3 F H 98.5 F Pulse Rate 108 H Pulse Rate [Left Brachial] 101 H Respiratory Rate 19 Blood Pressure Blood Pressure [Left Arm] 109/64 Blood Pressure [Right Arm] O2 Sat by Pulse Oximetry 96 92 L Oxygen Delivery Method Room Air Oxygen Flow Rate FIO2% 08/14/24 14:50 08/14/24 15:05 08/14/24 15:13 Temperature 101.4 F H Pulse Rate Pulse Rate [Left Brachial] Respiratory Rate 20 20 Blood Pressure Blood Pressure [Left Arm] Blood Pressure [Right Arm] O2 Sat by Pulse Oximetry Oxygen Delivery Method Oxygen Flow Rate FIO2% 08/14/24 15:55 08/14/24 16:05 08/14/24 16:13 Temperature 98.8 F Pulse Rate Pulse Rate [Left Brachial] 104 H Respiratory Rate 20 20 20 Blood Pressure Blood Pressure [Left Arm] 116/68 Blood Pressure [Right Arm] O2 Sat by Pulse Oximetry 95 Oxygen Delivery Method Room Air Oxygen Flow Rate FIO2% 08/14/24 19:00 08/14/24 20:00 08/14/24 20:00 Temperature Pulse Rate 97 H Pulse Rate [Left Brachial] Respiratory Rate Blood Pressure Blood Pressure [Left Arm] Blood Pressure [Right Arm] O2 Sat by Pulse Oximetry 93 L Oxygen Delivery Method Room Air Room Air Oxygen Flow Rate FIO2% 08/14/24 20:00 08/14/24 23:49 08/15/24 04:00 Temperature 98.5 F 98.5 F 98.6 F Pulse Rate Pulse Rate [Left Brachial] 100 H 100 H 105 H Respiratory Rate 20 19 19 Blood Pressure Blood Pressure [Left Arm] 105/56 112/62 105/58 Blood Pressure [Right Arm] O2 Sat by Pulse Oximetry 94 L 94 L 96 Oxygen Delivery Method Room Air Room Air Room Air Oxygen Flow Rate FIO2% 08/15/24 07:00 08/15/24 08:00 08/15/24 08:20 Temperature 98.9 F Pulse Rate Pulse Rate [Left Brachial] 110 H Respiratory Rate 16 Blood Pressure Blood Pressure [Left Arm] 102/59 Blood Pressure [Right Arm] O2 Sat by Pulse Oximetry 91 L Oxygen Delivery Method Room Air Room Air Room Air Oxygen Flow Rate 2 FIO2% 28 08/15/24 09:36 08/15/24 10:26 08/15/24 12:00 Temperature 98.9 F 99.3 F Pulse Rate Pulse Rate [Left Brachial] 101 H Respiratory Rate 16 16 Blood Pressure 92/55 Blood Pressure [Left Arm] 110/62 110/66 Blood Pressure [Right Arm] O2 Sat by Pulse Oximetry 92 L 95 Oxygen Delivery Method Room Air Room Air Oxygen Flow Rate 2 FIO2% 08/15/24 12:08 08/15/24 13:08 08/15/24 16:00 Temperature 98.8 F Pulse Rate Pulse Rate [Left Brachial] 102 H Respiratory Rate 16 16 16 Blood Pressure Blood Pressure [Left Arm] 94/53 Blood Pressure [Right Arm] O2 Sat by Pulse Oximetry 96 Oxygen Delivery Method Room Air Oxygen Flow Rate FIO2% 08/15/24 19:00 08/15/24 20:00 08/15/24 21:00 Temperature 97.0 F L Pulse Rate Pulse Rate [Left Brachial] 101 H Respiratory Rate 16 Blood Pressure Blood Pressure [Left Arm] 101/58 Blood Pressure [Right Arm] O2 Sat by Pulse Oximetry 98 Oxygen Delivery Method Nasal Cannula Room Air Nasal Cannula Oxygen Flow Rate 2 2 FIO2% 28 08/15/24 21:00 08/15/24 23:43 08/16/24 04:00 Temperature 98.3 F 98.1 F Pulse Rate 102 H Pulse Rate [Left Brachial] 102 H 98 H Respiratory Rate 17 17 Blood Pressure Blood Pressure [Left Arm] 97/53 98/60 Blood Pressure [Right Arm] O2 Sat by Pulse Oximetry 96 95 93 L Oxygen Delivery Method Room Air Room Air Oxygen Flow Rate FIO2% 08/16/24 05:30 08/16/24 07:00 08/16/24 08:00 Temperature 98.6 F Pulse Rate 95 H Pulse Rate [Left Brachial] 105 H Respiratory Rate 20 Blood Pressure Blood Pressure [Left Arm] 95/50 Blood Pressure [Right Arm] O2 Sat by Pulse Oximetry 97 93 L Oxygen Delivery Method Nasal Cannula Nasal Cannula Oxygen Flow Rate 2 FIO2% 08/16/24 08:13 08/16/24 08:40 08/16/24 09:13 Temperature Pulse Rate Pulse Rate [Left Brachial] Respiratory Rate 17 17 Blood Pressure Blood Pressure [Left Arm] Blood Pressure [Right Arm] O2 Sat by Pulse Oximetry Oxygen Delivery Method Room Air Oxygen Flow Rate 2 FIO2% 28 08/16/24 12:00 08/16/24 12:50 08/16/24 12:52 Temperature 98.3 F Pulse Rate Pulse Rate [Left Brachial] 99 H 103 H 102 H Respiratory Rate 16 18 18 Blood Pressure Blood Pressure [Left Arm] 91/55 Blood Pressure [Right Arm] 113/66 111/58 O2 Sat by Pulse Oximetry 98 97 96 Oxygen Delivery Method Nasal Cannula Nasal Cannula Nasal Cannula Oxygen Flow Rate FIO2% 08/16/24 12:54 08/16/24 13:04 08/16/24 14:04 Temperature Pulse Rate Pulse Rate [Left Brachial] 102 H Respiratory Rate 18 17 17 Blood Pressure Blood Pressure [Left Arm] Blood Pressure [Right Arm] 117/56 O2 Sat by Pulse Oximetry 100 Oxygen Delivery Method Nasal Cannula Oxygen Flow Rate FIO2% 08/16/24 16:00 08/16/24 19:00 08/16/24 20:00 Temperature 99.4 F 97.9 F Pulse Rate Pulse Rate [Left Brachial] 98 H 103 H Respiratory Rate 20 19 Blood Pressure Blood Pressure [Left Arm] 109/63 123/63 Blood Pressure [Right Arm] O2 Sat by Pulse Oximetry 96 98 Oxygen Delivery Method Nasal Cannula Nasal Cannula Room Air Oxygen Flow Rate 2 FIO2% 08/16/24 20:56 08/16/24 20:56 08/17/24 00:00 Temperature 99.2 F Pulse Rate 103 H Pulse Rate [Left Brachial] 101 H Respiratory Rate 20 Blood Pressure Blood Pressure [Left Arm] 99/58 Blood Pressure [Right Arm] O2 Sat by Pulse Oximetry 98 94 L Oxygen Delivery Method Nasal Cannula Room Air Oxygen Flow Rate 2 FIO2% 28 08/17/24 04:00 08/17/24 08:07 08/17/24 08:31 Temperature 99.9 F H 98.1 F Pulse Rate Pulse Rate [Left Brachial] 100 H 103 H Respiratory Rate 19 20 Blood Pressure Blood Pressure [Left Arm] 100/60 Blood Pressure [Right Arm] 105/63 O2 Sat by Pulse Oximetry 94 L 93 L Oxygen Delivery Method Room Air Room Air Nasal Cannula Oxygen Flow Rate 2 FIO2% 28 08/17/24 08:31 08/17/24 09:10 08/17/24 09:25 Temperature Pulse Rate 103 H Pulse Rate [Left Brachial] Respiratory Rate 19 Blood Pressure Blood Pressure [Left Arm] Blood Pressure [Right Arm] O2 Sat by Pulse Oximetry 93 L Oxygen Delivery Method Nasal Cannula Oxygen Flow Rate 2 FIO2% Labs: Laboratory Last Values WBC 10.6 X10^3/uL (3.6-10.0) H 08/17/24 06:20 RBC 3.22 X10^6/uL (4.7-6.0) L 08/17/24 06:20 Hgb 9.0 g/dL (13.5-18.0) L 08/17/24 06:20 Hct 27.2 % (42.0-54.0) L 08/17/24 06:20 MCV 84.5 fL (80.0-100.0) 08/17/24 06:20 MCH 27.8 pg (27.0-34.0) 08/17/24 06:20 MCHC 33.0 g/dL (33.0-35.0) 08/17/24 06:20 RDW 19.6 % (11.6-16.5) H 08/17/24 06:20 Plt Count 217 X10^3/uL (150.0-450.0) 08/17/24 06:20 Plt Count Comment Adequate (ADEQUATE) 08/17/24 06:20 MPV 8.0 fL (7.4-11.0) 08/17/24 06:20 Neut % (Auto) 85.7 % (42.0-75.0) H 08/17/24 06:20 Lymph % (Auto) 7.5 % (21.0-51.0) L 08/17/24 06:20 [place] % (Auto) 6.0 % (0.0-13.0) 08/17/24 06:20 Eos % (Auto) 0.5 % (0.9-2.9) L 08/17/24 06:20 Baso % (Auto) 0.3 % (0.2-1.0) 08/17/24 06:20 Neut # (Auto) 9.1 x10^3/uL (2.2-4.8) H 08/17/24 06:20 Lymph # (Auto) 0.8 X10^3/uL (1.3-2.9) L 08/17/24 06:20 [place] # (Auto) 0.6 x10^3/uL (0.3-0.8) 08/17/24 06:20 Eos # (Auto) 0.1 x10^3/uL (0.0-0.2) 08/17/24 06:20 Baso # (Auto) 0.0 X10^3/uL (0.0-0.1) 08/17/24 06:20 Absolute Nucleated RBC 0.0 /100WBC 08/17/24 06:20 Total Counted 100 08/17/24 06:20 Neutrophils % (Manual) 89 % (39-76) H 08/17/24 06:20 Band Neutrophils % 2 % (0-10) 08/17/24 06:20 Lymphocytes % (Manual) 8 % (13-43) L 08/17/24 06:20 Monocytes % (Manual) 1 % (4-9) L 08/17/24 06:20 Eosinophils % (Manual) 1 % (0-6) 08/15/24 05:08 Metamyelocytes % 1 08/15/24 05:08 Myelocytes % 2 08/15/24 05:08 Plt Morphology Comment Normal (NORMAL) 08/17/24 06:20 RBC Morphology Abnormal (NORMAL) 08/17/24 06:20 Anisocytosis Slight A 08/17/24 06:20 PT 16.0 SECONDS (11.8-14.3) 08/14/24 05:07 INR Target Range - 08/14/24 05:07 INR 1.27 (0.8-1.3) 08/14/24 05:07 APTT 35.4 SECONDS (22.9-36.5) 08/14/24 05:07 PTT Comment - 08/14/24 05:07 Sodium 133 mmol/L (136-145) L 08/17/24 06:20 Corrected Sodium 134 mmol/L (136-145) L 08/17/24 06:20 Potassium 4.4 mmol/L (3.5-5.1) 08/17/24 06:20 Chloride 101 mmol/L (98-107) 08/17/24 06:20 Carbon Dioxide 25.0 mmol/L (21-32) 08/17/24 06:20 BUN 11 mg/dL (7-18) 08/17/24 06:20 Creatinine 0.78 mg/dL (0.70-1.30) 08/17/24 06:20 Est GFR (MDRD) Af Amer > 60 (>60) 08/17/24 06:20 Est GFR (MDRD) Non-Af > 60 (>60) 08/17/24 06:20 Glucose 128 mg/dL (65-99) H 08/17/24 06:20 POC Glucose (mg/dL) 275 mg/dL (65-99) H 08/15/24 15:50 Lactic Acid 2.0 mmol/L (0.4-2.0) 08/13/24 18:10 Calcium 8.3 mg/dL (8.5-10.1) L 08/17/24 06:20 Corrected Calcium 10.2 mg/dL (8.5-10.1) H 08/17/24 06:20 Magnesium 2.0 mg/dL (2.0-2.9) 08/15/24 05:08 Total Bilirubin 0.50 mg/dL (0.2-1.0) 08/17/24 06:20 AST 27 Units/L (15-37) 08/17/24 06:20 ALT 35 Units/L (12-78) 08/17/24 06:20 Alkaline Phosphatase 179 Units/L (46-116) H 08/17/24 06:20 Total Protein 6.3 g/dL (6.4-8.2) L 08/17/24 06:20 Albumin 1.6 g/dL (3.4-5.0) L 08/17/24 06:20 Globulin 4.7 g/dL (2.5-4.5) H 08/17/24 06:20 Albumin/Globulin Ratio 0.3 Ratio (1.1-2.1) L 08/17/24 06:20 Specimen Type Clean catch urine 08/13/24 18:55 Urine Color Yellow (YELLOW) 08/13/24 18:55 Urine Appearance Clear (CLEAR) 08/13/24 18:55 Urine pH 8.0 (5.0 - 8.0) 08/13/24 18:55 Ur Specific [place] 1.015 (1.000-1.030) 08/13/24 18:55 Urine Protein 1+ (NEGATIVE) 08/13/24 18:55 Urine Glucose (UA) Negative (NEGATIVE) 08/13/24 18:55 Urine Ketones Negative (NEGATIVE) 08/13/24 18:55 Urine Blood 2+ (NEGATIVE) 08/13/24 18:55 Urine Nitrite Negative (NEGATIVE) 08/13/24 18:55 Urine Bilirubin Negative (NEGATIVE) 08/13/24 18:55 Urine Urobilinogen 1+ (NORMAL) 08/13/24 18:55 Ur Leukocyte Esterase 1+ (NEGATIVE) 08/13/24 18:55 Urine RBC 10-20 /HPF (0-3) A 08/13/24 18:55 Urine WBC 0-2 /HPF (0-5) 08/13/24 18:55 Ur Squamous Epith Cells Few /HPF (NEGATIVE) 08/13/24 18:55 Urine Bacteria Negative /HPF (NEGATIVE) 08/13/24 18:55 Ur Culture Indicated? No/not indicated 08/13/24 18:55 SARS-CoV-2 (PCR) Negative (NEGATIVE) 08/13/24 18:00 Influenza Type A (PCR) Negative (NEGATIVE) 08/13/24 18:00 Influenza Type B (PCR) Negative (NEGATIVE) 08/13/24 18:00 RSV (PCR) Negative (NEGATIVE) 08/13/24 18:00 Resp Viral Panel (PCR) See scanned report 08/15/24 10:26 Reason For Visit: HYPOTENSIONS, DEHYDRATION, WEAKNESS, FAILED Discharge Date Discharge Date: 08/17/24 Discharge Diagnosis All Active Problems (Updated 08/15/24 @ 09:56 by Leola Reddy MD) Pleural effusion (Acute) Neutropenia (Acute) Lung cancer (Chronic) Acute dehydration (Acute) Generalized weakness (Acute) Hypotension (Acute) DVT (deep venous thrombosis) (Acute) Colitis due to Campylobacter species (Acute) Campylobacter diarrhea (Acute) Diarrhea (Acute) Generalized weakness (Acute) Dehydration (Acute) Acute deep vein thrombosis (DVT) of femoral vein of left lower extremity (Acute) Diabetes mellitus (Chronic) Malignant neoplasm of left lung (Chronic) Essential (primary) hypertension (Acute) COPD (chronic obstructive pulmonary disease) (Chronic) Cardiomegaly (Acute) Syncope (Acute) Ventricular tachycardia (paroxysmal) (Acute) Elevated troponin (Acute) Plan of Treatment: Continue with present treatment and follow up plan. Pt is to keep follow up appointment as instructed and take medications as ordered. Discharge Medications Discharge Medications: No Known Drug Allergies Allergy (Verified 08/13/24 18:09) CONTINUE taking the following medications amiodarone 200 mg tablet 200 mg PO QDAY 08/13/24 [History] apixaban 5 mg tablet (Eliquis) 2.5 mg PO BID 08/13/24 [History] ferrous gluconate 324 mg (38 mg iron) tablet 324 mg PO QAM 08/13/24 [History] furosemide 20 mg tablet 20 mg PO BID 08/13/24 [History] hydrocodone 10 mg-acetaminophen 325 mg tablet 1 tab PO QID PRN 08/13/24 [History] insulin aspart U-100 100 unit/mL (3 mL) subcutaneous pen (Novolog FlexPen U-100 Insulin aspart) See Rx Instructions .Route .COMPLEX PRN diabetes mellitus 08/13/24 [History] insulin glargine 100 unit/mL (3 mL) subcutaneous pen (Basaglar KwikPen U-100 Insulin) 60 unit subcut QDAY 08/13/24 [History] levothyroxine 150 mcg tablet 150 mcg PO QAM 08/13/24 [History] metoprolol tartrate 50 mg tablet 25 mg PO BID 08/13/24 [History] omeprazole 20 mg capsule,delayed release 20 mg PO QDAY 08/13/24 [History] potassium chloride 10 mEq capsule,extended release 10 meq PO BID 08/13/24 [History] baclofen 10 mg tablet 10 mg PO TID PRN 08/14/24 [History] Discharge Disposition Assessment: No distress noted. Discharge Plan Discharge Plan Hospital Course: Patient admitted for pneumonia/ loculated left sided pleural effusion. His hospital/treatment course included IV antibiotics and I/S. General surgeryDr. Al was consulted for the pleural effusion but was unable to obtain any fluid after thoracentesis. Patient did not want to reattempt procedure again. Otherwise he did well with treatments and incentive spirometer. Cultures respiratory and urine were negative. Blood cultures were also negative. Patient is otherwise at baseline. He is not requiring supplemental oxygen. He was discharged in stable condition. Will send in cefdinir. He is instructed follow-up with his PCP in 1 week. 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 Patient Disposition: HOME HEALTH SERVICE Condition: Stable Health Concerns: Post Hospitalization: new medications and changes needed to prevent readmission or further decline. Pt educated and given instructions on all concerns. Care Plan Goals: Problem: Activity Intolerance Goal: Increased tolerance to activity Instructions: Follow provided instructions. Follow up with primary physician as directed. Contact primary care physician or report to the closest Emergency Room if condition worsens. Plan of Treatment: Continue with present treatment and follow up plan. Pt is to keep follow up appointment as instructed and take medications as ordered. Assessment: No distress noted. Prescriptions: New cefdinir 300 mg Capsule 300 mg PO Q12H Qty: 10 0RF No Action famotidine 40 mg tablet 40 mg PO DAILY clopidogrel 75 mg tablet 75 mg PO QDAY rosuvastatin 20 mg tablet 20 mg PO HS tamsulosin [Flomax] 0.4 mg Capsule 0.4 mg PO QDAY Qty: 7 0RF Rx Instructions: for prostate montelukast 10 mg tablet 10 mg PO QPM potassium chloride 10 mEq capsule, extended release 10 meq PO BID amiodarone 200 mg tablet 200 mg PO QDAY levothyroxine 150 mcg tablet 150 mcg PO QAM metoprolol tartrate 50 mg tablet 25 mg PO BID omeprazole 20 mg capsule,delayed release(DR/EC) 20 mg PO QDAY furosemide 20 mg tablet 20 mg PO BID ferrous gluconate 324 mg (38 mg iron) tablet 324 mg PO QAM insulin glargine [Basaglar WalterPen U-100 Insulin] 100 unit/mL (3 mL) insulin pen 60 unit SUBCUT QDAY Eliquis 5 mg tablet 2.5 mg PO BID hydrocodone-acetaminophen 10-325 mg tablet 1 tab PO QID PRN insulin aspart U-100 [Novolog FlexPen U-100 Insulin] 100 unit/mL (3 mL) insulin pen See Rx Instructions .ROUTE .COMPLEX PRN (Reason: diabetes mellitus) Rx Instructions: per SS baclofen 10 mg Tablet 10 mg PO TID PRN Follow ups/Referrals Follow ups/Referrals: Nathaniel Stacy [Primary Care Provider, MEDICAL] - 08/22/24 11:20 am NFD,None [STAFF PHYSICIAN] - 3 days Instructions Instructions: Weakness: What to Know, [id number], Rehydration, Older Adult, Dehydration, Older Adult, [id number], Managing Cancer-Related Fatigue Stand Alone Forms: Find Help Web Site, Post Hospital Follow Up Care Print Language: GHANAIAN
== END 2024-08-17 11:50 | disposition home health service (06) | DRG 315 ==
LOC: SUPCPDRO → MED/SURG 17:23 → ER 17:23 → MED/SURG 08-14 00:06
PROVIDERS: ADMIT Internal Medicine; ATTEND Internal Medicine
DX: W54.8XXA Other contact with dog, initial encounter; D70.9 Neutropenia, unspecified; Z03.818 Encounter for observation for suspected exposure to other biological agents ruled out; K21.9 Gastro-esophageal reflux disease without esophagitis; R00.0 Tachycardia, unspecified; Z92.21 Personal history of antineoplastic chemotherapy; E78.5 Hyperlipidemia, unspecified; E86.0 Dehydration; R06.02 Shortness of breath; I10 Essential (primary) hypertension; E11.65 Type 2 diabetes mellitus with hyperglycemia; R11.2 Nausea with vomiting, unspecified; Z86.718 Personal history of other venous thrombosis and embolism; N20.0 Calculus of kidney; S51.812A Laceration without foreign body of left forearm, initial encounter; E83.42 Hypomagnesemia; J44.9 Chronic obstructive pulmonary disease, unspecified; E87.1 Hypo-osmolality and hyponatremia; R26.89 Other abnormalities of gait and mobility; R50.81 Fever presenting with conditions classified elsewhere; J90 Pleural effusion, not elsewhere classified; C34.12 Malignant neoplasm of upper lobe, left bronchus or lung; Z79.01 Long term (current) use of anticoagulants; L89.151 Pressure ulcer of sacral region, stage 1; I95.89 Other hypotension; R53.1 Weakness; Z79.4 Long term (current) use of insulin

== ENCOUNTER 2024-09-29 20:46 | Inpatient (IN) ==
[2024-09-29] MEDS: DUONEB 0.5 MG/3 MG (3 mL) NEB ONE (21:17)
[2024-09-29] MEDS: LASIX IVP ONE (21:39)
[2024-09-29 21:41] LABS: MEAN PLATELET VOLUME 7.4 fL (7.4-11.0); RED CELL DISTRIBUTION WIDTH 19.9 % (11.6-16.5)
--- NOTE | 2024-09-29 21:42 | RAD ---
EXAM: CHEST HISTORY: pt in ed via ems w/sob x 2-3 weeks that has worsened, pt also reports fevers on and off. pt has hx of lung ca currently receiving tx for it and was given 1 g rocephin today and last took tylenol @6:30pm. ; COMPARISON: Portable chest x-ray dated August 17, 2024. TECHNIQUE: Frontal view of the chest was submitted for interpretation. FINDINGS: Interval decreased left pleural effusion. Airspace disease at the left mid and lower lung zones may be present as well. Question 14 mm nodular opacity at the right lower lung zone versus summation of shadows. Right-sided life port is redemonstrated. Cardiomegaly. No evidence of pulmonary vascular congestion. IMPRESSION: Interval decreased left pleural effusion. Airspace disease at the left mid and lower lung zones may be present as well. Question 14 mm nodular opacity at the right lower lung zone versus summation of shadows. Recommend attention on follow-up imaging. Right-sided life port is redemonstrated. Cardiomegaly. THIS IS AN ELECTRONICALLY VERIFIED FINAL REPORT 09/29/2024 9:39 PM - Electronically signed by Cresencio Soto DO
[2024-09-29 21:51] LABS: COR CA(FOR HYPOALB) 10.5 mg/dL (8.5-10.1); CREATININE 0.74 mg/dL (0.70-1.30); eGFR NON BLACK RACES > 60 (>60)
[2024-09-29 21:55] LABS: INR 1.47 (0.8-1.3)
--- NOTE | 2024-09-29 21:55 | DR.SOBA ---
HPI Time Seen Time Seen by Provider: 09/29/24 21:28 Primary Care Physician Primary Care Physician: Regis HPI Comment HPI Comment: According to family pt has hx of lung cancer seeing pulmonology and haem /onc. Has been stable. Did fall approx. 2 weeks ago and did have rib fractured. He experienced shortness of breath gradual in onset and has slowly worsened today. Pt had noticed productive cough. He spoke with his FP who did give Rocephin injection today. Shortness of breath worsened. Called EMS and brought patient to ER for evaluation Complaints Chief Complaint Doctors Comments: shortness of breath Chief Complaint:: pt in ed via ems w/sob x 2-3 weeks that has worsened, pt also reports fevers on and off. pt has hx of lung ca currently receiving tx for it and was given 1 g rocephin today and last took tylenol @6:30pm. pt on 3l nc on arrival 02 sats noted to be 94%. also reports a decubitus ulcer. COVID-19 Coronavirus risk:travel/contact w/high risk person: No Has patient experienced Coronavirus symptoms: No Reviewed Nurses Notes Reviewed: Yes Source History Provided: Patient Mode of Arrival Mode of Arrival: EMS Timing Onset of Chief Complaint: 09/28/24 Duration Duration: Days Context Onset:: At Rest and With Light Exertion PE Risk Factors:: Recent Trauma and Immobilization History of:: COPD, CHF and DVT/PE Currently on:: Inhaled Bronchodilators Prehospital Care:: O2 Modifying Factors Worsens:: Exertion Improves:: Nothing Associated Signs and Symptoms Associated Signs and Symptoms: Cough and Leg Swelling If Cough Cough: Productive, White and Yellow PMH PMH Past Medical History: Yes Past Medical History: Anemia, Arthritis, COPD, Diabetes, Dyslipidemia, GERD, Hypertension and Hyperthyroidism Past Medical History Comment: Lung Cancer Past Surgical History: Yes Surgical History: Angioplasty/Stents, Joint Replacement, Tonsillectomy and Other Family History History of Family Medical Conditions: Yes Family Medical History: Diabetes Mellitus and Heart Failure Social History Do you use any recreational Drugs:: No Travel Risk Coronavirus risk:travel/contact w/high risk person: No Has patient experienced Coronavirus symptoms: No Infectious screening Have you traveled outside the country in the last 6 months?: No Isolation: Standard ROS Review of Systems Constitutional: Chills, Malaise and Fatigue Eyes: No Symptoms Reported ENTM: No Symptoms Reported Respiratoy: Productive Cough and Short of Breath Cardiovascular: Edema and Palpitations Gastrointestinal/Abdominal: No Symptoms Reported Genitourinary: No Symptoms Reported Neurological: No Symptoms Reported Musculoskeletal: Joint Pain and Muscle Pain Integumentary: No Symptoms Reported Hematologic/Lymphatic: Blood Clots Endocrine: No Symptoms Reported PE Vital Signs Vitals: Vital Signs Temperature 98.9 F Pulse Rate 120 Pulse Rate 120 Pulse Rate 121 Pulse Rate 120 Pulse Rate 120 Pulse Rate 122 Pulse Rate 125 Pulse Rate 125 Pulse Rate 127 Pulse Rate 121 Pulse Rate 122 Pulse Rate 123 Pulse Rate 122 Respiratory Rate 25 Respiratory Rate 31 Respiratory Rate 23 Respiratory Rate 32 Respiratory Rate 27 Respiratory Rate 28 Respiratory Rate 31 Respiratory Rate 31 Respiratory Rate 35 Respiratory Rate 23 Respiratory Rate 20 Respiratory Rate 23 Blood Pressure 117/61 Blood Pressure 111/61 Blood Pressure 111/61 Blood Pressure 110/58 Blood Pressure 122/63 Blood Pressure 114/60 Blood Pressure 116/62 O2 Sat by Pulse Oximetry 93 O2 Sat by Pulse Oximetry 94 O2 Sat by Pulse Oximetry 93 O2 Sat by Pulse Oximetry 94 O2 Sat by Pulse Oximetry 94 O2 Sat by Pulse Oximetry 94 O2 Sat by Pulse Oximetry 93 O2 Sat by Pulse Oximetry 94 O2 Sat by Pulse Oximetry 91 O2 Sat by Pulse Oximetry 93 General Limitations: No Limitations General Appearance: Alert and Lethargic Head Head Exam: Normal Inspection, Atraumatic and Normocephalic Eyes Eye exam: Normal Appearance, PERRL and EOMI ENT ENT Exam: Mucous Membranes Moist Neck Neck Exam: Normal Inspection and Full ROM Chest Chest Inspection: Normal Inspection and Symmetric Chest Wall Rise Respiratory Respiratory Exam: Prolonged Expiratory Phase Respiratory Exam: Left: Dullness on Percussion Cardiovascular Cardiovascular Exam: Tachycardia, +S1 and +S2 Abdominal Exam Abdominal Exam: Normal Inspection, Normal Bowel Sounds and Soft Extremities Extremities Exam: Edema Back Back Exam: Normal Inspection Neurologic Neurological Exam: Alert Skin Skin Exam: Normal Color MDM Differential Diagnosis Differential Diagnosis: Anxiety, CHF, COPD, Mycardial Infarction and Respiratory Insufficiency COURSE Treatment Treatment: labs,cxr,BNP ,IV lasix ROR Labs Reviewed 09/29/24 21:08 09/29/24 21:08 Laboratory: WBC 14.5 X10^3/uL (3.6-10.0) H 09/29/24 21:08 RBC 3.23 X10^6/uL (4.7-6.0) L 09/29/24 21:08 Hgb 8.7 g/dL (13.5-18.0) L 09/29/24 21:08 Hct 27.1 % (42.0-54.0) L 09/29/24 21:08 MCV 84.0 fL (80.0-100.0) 09/29/24 21:08 MCH 27.0 pg (27.0-34.0) 09/29/24 21:08 MCHC 32.1 g/dL (33.0-35.0) L 09/29/24 21:08 RDW 19.9 % (11.6-16.5) H 09/29/24 21:08 Plt Count 510 X10^3/uL (150.0-450.0) H 09/29/24 21:08 MPV 7.4 fL (7.4-11.0) 09/29/24 21:08 Neut % (Auto) 88.4 % (42.0-75.0) H 09/29/24 21:08 Lymph % (Auto) 8.3 % (21.0-51.0) L 09/29/24 21:08 [place] % (Auto) 2.6 % (0.0-13.0) 09/29/24 21:08 Eos % (Auto) 0.4 % (0.9-2.9) L 09/29/24 21:08 Baso % (Auto) 0.3 % (0.2-1.0) 09/29/24 21:08 Neut # (Auto) 12.8 x10^3/uL (2.2-4.8) H 09/29/24 21:08 Lymph # (Auto) 1.2 X10^3/uL (1.3-2.9) L 09/29/24 21:08 [place] # (Auto) 0.4 x10^3/uL (0.3-0.8) 09/29/24 21:08 Eos # (Auto) 0.1 x10^3/uL (0.0-0.2) 09/29/24 21:08 Baso # (Auto) 0.0 X10^3/uL (0.0-0.1) 09/29/24 21:08 Absolute Nucleated RBC 0.1 /100WBC 09/29/24 21:08 PT 18.0 SECONDS (11.8-14.3) 09/29/24 21:17 INR Target Range - 09/29/24 21:17 INR 1.47 (0.8-1.3) H 09/29/24 21:17 D-Dimer 3.05 ug/ml (0.0-0.57) H 09/29/24 21:17 Sodium 134 mmol/L (136-145) L 09/29/24 21:08 Corrected Sodium TNP 09/29/24 21:08 Potassium 3.9 mmol/L (3.5-5.1) 09/29/24 21:08 Chloride 101 mmol/L (98-107) 09/29/24 21:08 Carbon Dioxide 25.3 mmol/L (21-32) 09/29/24 21:08 BUN 12 mg/dL (7-18) 09/29/24 21:08 Creatinine 0.74 mg/dL (0.70-1.30) 09/29/24 21:08 Est GFR (MDRD) Af Amer > 60 (>60) 09/29/24 21:08 Est GFR (MDRD) Non-Af > 60 (>60) 09/29/24 21:08 Glucose 97 mg/dL (65-99) 09/29/24 21:08 Lactic Acid 1.6 mmol/L (0.4-2.0) 09/29/24 21:08 Calcium 8.7 mg/dL (8.5-10.1) 09/29/24 21:08 Corrected Calcium 10.5 mg/dL (8.5-10.1) H 09/29/24 21:08 Total Bilirubin 0.50 mg/dL (0.2-1.0) 09/29/24 21:08 AST 16 Units/L (15-37) 09/29/24 21:08 ALT 27 Units/L (12-78) 09/29/24 21:08 Alkaline Phosphatase 181 Units/L (46-116) H 09/29/24 21:08 Creatine Kinase 17 Units/L (39-308) L 09/29/24 21:08 Troponin I High Sens 6.8 ng/L (4.0-60.0) 09/29/24 21:08 B-Natriuretic Peptide 291 pg/mL (0-79) H 09/29/24 21:08 Total Protein 7.7 g/dL (6.4-8.2) 09/29/24 21:08 Albumin 1.8 g/dL (3.4-5.0) L 09/29/24 21:08 Globulin 5.9 g/dL (2.5-4.5) H 09/29/24 21:08 Albumin/Globulin Ratio 0.3 Ratio (1.1-2.1) L 09/29/24 21:08 Opioid Opioid Risk Tool Age (Kit box if 16-45): No History of Preadolescent Sexual Abuse: No Total: 0 Total Score Risk Category: Low Risk Copyright: Bang GARZ[employer] predicting aberrant behaviors Discharge Plan Diagnosis Discharge Problem: Acute on chronic right heart failure, Anemia, Leucocytosis, Hyponatremia, Lung cancer Discharge Plan Patient Disposition: ADMITTED INPATIENT Condition: Stable Prescriptions: Continued clopidogrel 75 mg tablet 75 mg PO QAM rosuvastatin 20 mg tablet 20 mg PO QPM amiodarone 200 mg tablet 200 mg PO QAM levothyroxine 150 mcg tablet 150 mcg PO QAM insulin glargine [Basaglar KwikPen U-100 Insulin] 100 unit/mL (3 mL) insulin pen 65 unit SUBCUT QAM Eliquis 5 mg tablet 2.5 mg PO BID tamsulosin [Flomax] 0.4 mg capsule 0.4 mg PO QPM Rx Instructions: for prostate Discontinued famotidine 40 mg tablet 40 mg PO QAM montelukast 10 mg tablet 10 mg PO QPM potassium chloride 10 mEq capsule, extended release 10 meq PO BID metoprolol tartrate 50 mg tablet 25 mg PO BID omeprazole 20 mg capsule,delayed release(DR/EC) 20 mg PO QPM furosemide 20 mg tablet 20 mg PO BID ferrous gluconate 324 mg (38 mg iron) tablet 324 mg PO QAM insulin aspart U-100 [Novolog FlexPen U-100 Insulin] 100 unit/mL (3 mL) insulin pen See Rx Instructions .ROUTE .COMPLEX PRN (Reason: diabetes mellitus) Rx Instructions: per SS diphenoxylate-atropine [Lomotil] 2.5-0.025 mg Tablet 1 tab PO QDAY PRN No Action hydrocodone-acetaminophen 10-325 mg tablet 1 tab PO QID PRN albuterol sulfate 90 mcg/actuation HFA aerosol inhaler 2 inh inhalation Q4H PRN Health Concerns: Post Hospitalization: new medications and changes needed to prevent readmission or further decline. Pt educated and given instructions on all concerns. Plan of Treatment: Continue with present treatment and follow up plan. Pt is to keep follow up appointment as instructed and take medications as ordered. Orders to Discharge Patient Discharge Orders: Transfer (Routine); Ordered 09/29/24 Ordered By: Cosme Conteh Follow ups/Referrals Follow ups/Referrals: Nathaniel Stacy [Primary Care Provider, MEDICAL] - 3 days Instructions Stand Alone Forms: Find Help Web Site, Post Hospital Follow Up Care Print Language: UKRAINIAN ADDITIONAL NOTES Additional Notes Additional Notes: hx of lung cancer, anemia , acute right heart failure with low osmolality of 277 with elevated bnp of 299 , hyponatremia, left pleural effusion, elevated wbc with oxygen dependency. Spoke with Dr Schwartz. Agreed to have patient admitted. Pt is full code per patients' family
[2024-09-29] MEDS: LEVAQUIN PREMIX IV 500 MG 500 MG/100 ML BAG IV SCH (23:00)
[2024-09-29] MEDS: LOPRESSOR TAB 50 MG PO ONE (23:00)
[2024-09-29] MEDS ORDERED: VENTOLIN or PROAIR HFA IN PRN (23:28)
[2024-09-30 00:46] VITALS: BMI 24.0
[2024-09-30] MEDS: LASIX IVP ONE (01:00)
[2024-09-30 05:04] LABS: MEAN PLATELET VOLUME 7.4 fL (7.4-11.0); RED CELL DISTRIBUTION WIDTH 19.8 % (11.6-16.5)
[2024-09-30 05:08] LABS: COR CA(FOR HYPOALB) 10.4 mg/dL (8.5-10.1); CREATININE 0.81 mg/dL (0.70-1.30); eGFR NON BLACK RACES > 60 (>60)
[2024-09-30] MEDS: ELIQUIS PO SCH (08:06)
[2024-09-30] MEDS: CORDARONE TAB 200 MG PO SCH (08:06)
[2024-09-30] MEDS: PLAVIX PO SCH (08:06)
[2024-09-30] MEDS: LANTUS SC SCH (08:30)
[2024-09-30] MEDS: NORCO 5/325 MG TAB PO PRN (08:34)
[2024-09-30] MEDS: PULMICORT NEB TX 0.5 MG NEB SCH (08:40)
[2024-09-30] MEDS: LOPRESSOR TAB 50 MG PO SCH (10:03)
--- NOTE | 2024-09-30 11:49 | DR.H&P ---
H&P History & Physical for Day of: H&P Date: 09/30/24 Chief Complaint Chief Complaint: shortness of breath History of Present Illness History of Present Illness: Patient is a 68-year-old male with a medical history of lung cancer, hypertension, atrial fibrillation, hypothyroidism, type 2 diabetes mellitus, sacral decubitus ulcer, presenting with increased shortness of breath. He is usually using 2 L of home oxygen and yesterday required more. He reports feeling really tight in his chest when it comes to breathing. He is on Keytruda and was supposed to receive another dose of chemo next week. He denies having fevers or chills. He does report he is chronically cold. Labs/imaging: WBC 17.6, hemoglobin 8, platelets 47, sodium 135, potassium 4.0, creatinine 0.81, glucose 79, lactic acid 1.6, troponin negative, BNP 291, blood culture pending. Chest x-ray was obtained see report. Patient was admitted for acute on chronic CHF, Leukocytosis, hyponatremia, anemia. He received IV Lasix 40 mg x 1 dose. Will restart his home Lasix dose. Order echo. Will also keep him on IV antibiotics Levaquin. Wound care on sacral ulcer. Restart home medications. Continue with scheduled bronchodilators and supplemental oxygen. Wean/titrate as tolerated. Otherwise continue with current treatment plan. Continue closely monitor and follow-up labs/imaging. Past Medical History Past Medical History: Anemia, Arthritis, COPD, Diabetes, Dyslipidemia, GERD, Hypertension and Hyperthyroidism Past Surgical History Surgical History: Angioplasty/Stents, Joint Replacement and Tonsillectomy Family History Family Medical History: Diabetes Mellitus and Heart Failure Social History Does patient currently use any type of tobacco product: No Type of Tobacco Use: None Does any household member use tobacco: No Alcohol Use: None Drug Use: None Medications Home Medications: Home Medications Medication Instructions Recorded Confirmed Type clopidogrel 75 mg tablet 75 mg PO QAM 03/27/23 History famotidine 40 mg tablet 40 mg PO QAM 03/27/23 History rosuvastatin 20 mg tablet 20 mg PO QPM 03/27/23 History montelukast 10 mg tablet 10 mg PO QPM 10/24/23 History amiodarone 200 mg tablet 200 mg PO QAM 08/13/2409/29 History apixaban 5 mg tablet (Eliquis) 2.5 mg PO BID 08/13/24 09/29/24 History ferrous gluconate 324 mg (38 mg 324 mg PO QAM 08/13/24 09/29/24 History iron) tablet furosemide 20 mg tablet 20 mg PO BID 08/13/24 History hydrocodone 10 mg-acetaminophen 1 tab PO QID PRN 08/1309/29/24 History 325 mg tablet insulin aspart U-100 100 unit/mL See Rx Instructions . Route 08/13/24 09/29/24 History (3 mL) subcutaneous pen (Novolog .COMPLEX PRN diabetes mellitus FlexPen U-100 Insulin aspart) insulin glargine 100 unit/mL (3 65 unit subcut QAM 09/29/24 History mL) subcutaneous pen (Basaglar KwikPen U-100 Insulin) levothyroxine 150 mcg tablet 150 mcg PO QAM 08/13/24 0 09/29/24 History metoprolol tartrate 50 mg tablet 25 mg PO BID 08/13/24 09/29/24 History omeprazole 20 mg capsule,delayed 20 mg PO QPM 08/13/24 09/29/24 History release potassium chloride 10 mEq 10 meq PO BID 08/13/2409/29 History capsule,extended release albuterol sulfate 90 mcg/actuation 2 inh inhalation Q4 H PRN 09/29/24 09/29/24 History aerosol inhaler diphenoxylate-atropine 2.5 1 tab PO QDAY PRN 09/29/24 09/29/24 History mg-0.025 mg tablet (Lomotil) tamsulosin 0.4 mg capsule (Flomax) 0.4 mg PO QPM 09/2909/29/24 History Allergies Allergies Allergy/AdvReac Type Severity Reaction Status Date / Time No Known Drug Allergies Allergy Verified 09/29/24 21:30 Labs 09/30/24 04:26 09/30/24 04:26 Labs: Laboratory WBC 17.6 X10^3/uL (3.6-10.0) H 09/30/24 04:26 RBC 2.99 X10^6/uL (4.7-6.0) L 09/30/24 04:26 Hgb 8.0 g/dL (13.5-18.0) L 09/30/24 04: Hct 25.0 % (42.0-54.0) L 09/30/24 04:26 MCV 83.7 fL (80.0-100.0) 09/30/24 04:26 MCH 26.6 pg (27.0-34.0) L 09/30/24 04: MCHC 31.8 g/dL (33.0-35.0) L 09/30/24 04:26 RDW 19.8 % (11.6-16.5) H 09/30/24 04:26 Plt Count 487 X10^3/uL (150.0-450.0) H 09/30/24 04: MPV 7.4 fL (7.4-11.0) 09/30/24 04: Neut % (Auto) 89.9 % (42.0-75.0) H 09/30/24 04:26 Lymph % (Auto) 6.8 % (21.0-51.0) L 09/30/24 04:26 [place] % (Auto) 3.2 % (0.0-13.0) 09/30/24 04: Eos % (Auto) 0.1 % (0.9-2.9) L 09/30/24 04: Baso % (Auto) 0 % (0.2-1.0) L 09/30/24 04: Neut # (Auto) 15.9 x10^3/uL (2.2-4.8) H 09/30/24 04:26 Lymph # (Auto) 1.2 X10^3/uL (1.3-2.9) L 09/30/24 04:26 [place] # (Auto) 0.6 x10^3/uL (0.3-0.8) 09/30/24 04:26 Eos # (Auto) 0.0 x10^3/uL (0.0-0.2) 09/30/24 04:26 Baso # (Auto) 0.0 X10^3/uL (0.0-0.1) 09/30/24 04: Absolute Nucleated RBC 0.0 /100WBC 09/30/24 04:26 PT 18.0 SECONDS (11.8-14.3) 09/29/24 21:17 INR Target Range - 09/29/24 21:17 INR 1.47 (0.8-1.3) H 09/29/24 21:17 D-Dimer 3.05 ug/ml (0.0-0.57) H 09/29/24 21:17 Sodium 135 mmol/L (136-145) L 09/30/24 04:26 Corrected Sodium TNP 09/30/24 04:26 Potassium 4.0 mmol/L (3.5-5.1) 09/30/24 04:26 Chloride 102 mmol/L (98-107) 09/30/24 04:26 Carbon Dioxide 27.8 mmol/L (21-32) 09/30/24 04:26 BUN 13 mg/dL (7-18) 09/30/24 04:26 Creatinine 0.81 mg/dL (0.70-1.30) 09/30/24 04:26 Est GFR (MDRD) Af Amer > 60 (>60) 09/30/24 04:26 Est GFR (MDRD) Non-Af > 60 (>60) 09/30/24 04:26 Glucose 79 mg/dL (65-99) 09/30/24 04:26 POC Glucose (mg/dL) 138 mg/dL (65-99) H 09/30/24 10:42 Lactic Acid 1.6 mmol/L (0.4-2.0) 09/29/24 21:08 Calcium 8.5 mg/dL (8.5-10.1) 09/30/24 04:26 Corrected Calcium 10.4 mg/dL (8.5-10.1) H 09/30/24 04:26 Total Bilirubin 0.70 mg/dL (0.2-1.0) 09/30/24 04:26 AST 19 Units/L (15-37) 09/30/24 04:26 ALT 23 Units/L (12-78) 09/30/24 04:26 Alkaline Phosphatase 220 Units/L (46-116) H 09/30/24 04:26 Creatine Kinase 17 Units/L (39-308) L 09/29/24 21:08 Troponin I High Sens 6.8 ng/L (4.0-60.0) 09/29/24 21:08 B-Natriuretic Peptide 291 pg/mL (0-79) H 09/29/24 21:08 Total Protein 7.2 g/dL (6.4-8.2) 09/30/24 04:26 Albumin 1.6 g/dL (3.4-5.0) L 09/30/24 04:26 Globulin 5.6 g/dL (2.5-4.5) H 09/30/24 04:26 Albumin/Globulin Ratio 0.3 Ratio (1.1-2.1) L 09/30/24 04:26 Review of Systems Constitutional: No Symptoms Reported Eyes: No Symptoms Reported ENT: No Symptoms Reported Respiratory: Shortness of Breath and Pleuritic Pain Cardiovascular: No Symptoms Reported Gastrointestinal: No Symptoms Reported Genitourinary: No Symptoms Reported Musculoskeletal: No Symptoms Reported Skin: No Symptoms Reported Neurological: No Symptoms Reported Physical Exam Vital Signs: Vital Signs Temperature 98.5 F Temperature 98.0 F Pulse Rate [Left] 105 Pulse Rate [Left] 104 Pulse Rate 103 Respiratory Rate 18 Respiratory Rate 18 Respiratory Rate 18 Respiratory Rate 22 Blood Pressure [Left Arm] 90/57 Blood Pressure [Left Arm] 98/55 O2 Sat by Pulse Oximetry 89 O2 Sat by Pulse Oximetry 94 O2 Sat by Pulse Oximetry 94 Oriented: Normal Eyes: Normal Ear: Normal Nose: Normal Throat: Normal Respiratory: Diminished Throughout Cardiovascular: Normal : Normal Auscultation: Bowel Sounds: Normal Palpation: Normal Tenderness: Normal Skin: Normal Musculoskeletal: Leg (1+ BLE) Psychiatric: Normal Mood Description: Calm and Appropriate Affect: Normal Speech Pattern: Clear and Appropriate Assessment/Plan (1) Acute on chronic heart failure: Qualifiers: Heart failure type: unspecified Qualified Code(s): I50.9 - Heart failure, unspecified Status: Acute Plan: received IV lasix, will restart po lasix order echo. (2) Lung cancer: Qualifiers: Laterality: unspecified laterality Lung location: unspecified part of lung Qualified Code(s): C34.90 - Malignant neoplasm of unspecified part of unspecified bronchus or lung Status: Acute (3) Hyponatremia: Status: Acute (4) Leucocytosis: Qualifiers: Leukocytosis type: unspecified Qualified Code(s): D72.829 - Elevated white blood cell count, unspecified Status: Acute (5) Anemia: Qualifiers: Anemia type: unspecified type Qualified Code(s): D64.9 - Anemia, unspecified Status: Acute (6) Sacral decubitus ulcer: Qualifiers: Pressure injury stage: unspecified pressure injury stage Qualified Code(s): L89.159 - Pressure ulcer of sacral region, unspecified stage Status: Acute Review H&P Reviewed: Yes Patient was examined?: Yes
[2024-09-30] MEDS: PROVENTIL NEB TX 0.083% 2.5MG/ 3ML NEB PRN (13:18)
[2024-09-30] MEDS: BUTT CREAM (COMPOUND) TOP PRN (21:00)
[2024-09-30] MEDS: FLOMAX PO SCH (21:07)
[2024-09-30] MEDS: CRESTOR TAB 10 MG PO SCH (21:07)
[2024-09-30] MEDS: LASIX PO SCH (21:08)
[2024-09-30] MEDS: NORCO 10/325 TAB PO PRN (21:10)
--- NOTE | 2024-10-01 05:03 | RAD ---
EXAM: CHEST, 1 VIEW HISTORY: follow up; COMPARISON: 09/29/2024 FINDINGS: The trachea is midline. Right Port-A-Cath tip in distal SVC. The cardiac silhouette is mildly enlarged.. Left pleural effusion slightly increased from prior study. There is increased opacification in the left lung base due to atelectasis or consolidation. Right lung is clear.. The bony thorax is unremarkable. IMPRESSION: Mild cardiomegaly Left pleural effusion increased in size from previous 09/29/2024. Left basilar atelectasis and/or consolidation. THIS IS AN ELECTRONICALLY VERIFIED FINAL REPORT 10/01/2024 4:59 AM - Electronically signed by Joaquin Landers MD
[2024-10-01 05:08] LABS: COR CA(FOR HYPOALB) 10.4 mg/dL (8.5-10.1); COR NA(FOR HYPERGLY) 136 mmol/L (136-145); CREATININE 0.80 mg/dL (0.70-1.30); eGFR NON BLACK RACES > 60 (>60)
[2024-10-01 05:13] LABS: MEAN PLATELET VOLUME 7.5 fL (7.4-11.0); RED CELL DISTRIBUTION WIDTH 20.0 % (11.6-16.5)
[2024-10-01 05:23] LABS: PLATELET MORPHOLOGY COMMENT NORMAL (NORMAL)
[2024-10-01] MEDS: VANCOMYCIN IV *PREMIX 1.25 G/250 ML BAG 1.25 G/250 ML PIGGYBACK IV SCH (09:55)
[2024-10-01] MEDS ORDERED: PHARMACY CONSULT - VANCOMYCIN XX SCH (10:00)
--- NOTE | 2024-10-01 11:00 | PCM.PROG ---
Progress Note Progress Note for Day of Date of Exam: 10/01/24 Subjective Subjective: Patient seen at bedside, no acute events overnight. He is currently admitted for pneumonia, CHF exacerbation and generalized weakness. Patient is currently being treated for lung cancer with chemotherapy, last chemo 6 weeks ago. He presented with worsening shortness of breath. He did have elevated BNP and left pleural effusion on admission. Repeat chest x-ray does show increase in left pleural effusion. He also had elevated D-dimer. He is currently on 3 L nasal cannula. He reports poor intake. He has been coughing up a lot of sputum. He does have a echo pending for today. He sees Dr. Peacock due to history of CAD status post 6 stents. Patient has not been able to make it to his appointments. Patient's family would prefer him to be established with Dr. Wallace as it is easier for him to follow-up with him locally. Labs/imaging reviewed: - WBC 18.3 hemoglobin 7.4 potassium 4.1 sodium 133 creatinine 0.80 glucose 192 - Chest x-ray reviewed - Sputum culture pending - Blood culture pending - Echo pending Plan: Order CTA chest to evaluate further. Wean O2 as tolerated, continue bronchodilators. Continue Levaquin, add vancomycin for broader coverage. Follow-up pending cultures. Order AIT. Change Lasix to 20 mg IV twice daily. Follow echo results. Consult Dr. Wallace. Order anemia panel. Ordered 2 units PRBCs. Monitor H&H. Replace electrolytes as per protocol. Physical therapy as tolerated. Monitor a.m. labs and imaging. Time spent for clinical assessment, reviewing labs and imaging, physical exam, decision making and documentation greater than 45 minutes. Past Medical Family Social History Allergies: Allergies No Known Drug Allergies Allergy (Verified 09/29/24 21:30) Vital Signs and I&O's Vital Signs: Vital Signs Temperature 97.6 F Temperature 98.9 F Pulse Rate [Left] 111 Pulse Rate [Left] 107 Pulse Rate 111 Respiratory Rate 21 Respiratory Rate 19 Blood Pressure [Left Arm] 121/59 Blood Pressure [Left Arm] 90/51 O2 Sat by Pulse Oximetry 90 O2 Sat by Pulse Oximetry 92 O2 Sat by Pulse Oximetry 96 Intake and Output: Intake & Output 09/28/24 09/29/24 09/30/24 10/01/24 23:59 23:59 23:59 23:59 Intake Total 1177 / 1177 320 / 320 Output Total 1405 / 1405 550 / 550 Balance -228 / -228 -230 / -230 Physical Exam Oriented: Normal Eyes: Normal Ear: Normal Nose: Normal Throat: Normal Respiratory: Generalized and Diminished Cardiovascular: Edema : Normal Auscultation: Bowel Sounds: Normal Palpation: Normal Tenderness: Normal Skin: Normal Musculoskeletal: Leg (1+ BLE) Psychiatric: Normal Mood Description: Calm and Appropriate Affect: Normal Speech Pattern: Clear and Appropriate Laboratory and Diagnostics 10/01/24 04:13 10/01/24 04:13 Labs: 09/30/24 12:20 Sputum - Expectorated Sputum Sputum Culture - Preliminary 09/30/24 12:20 Sputum - Expectorated Sputum - Final Laboratory WBC 18.3 X10^3/uL (3.6-10.0) H 10/01/24 04:13 RBC 2.75 X10^6/uL (4.7-6.0) L 10/01/24 04:13 Hgb 7.4 g/dL (13.5-18.0) L 10/01/24 04:13 Hct 23.0 % (42.0-54.0) L 10/01/24 04:13 MCV 83.5 fL (80.0-100.0) 10/01/24 04:13 MCH 26.8 pg (27.0-34.0) L 10/01/24 04:13 MCHC 32.1 g/dL (33.0-35.0) L 10/01/24 04:13 RDW 20.0 % (11.6-16.5) H 10/01/24 04:13 Plt Count 464 X10^3/uL (150.0-450.0) H 10/01/24 04:13 Plt Count Comment Increased (ADEQUATE) 10/01/24 04:13 MPV 7.5 fL (7.4-11.0) 10/01/24 04:13 Neut % (Auto) 91.2 % (42.0-75.0) H 10/01/24 04:13 Lymph % (Auto) 4.9 % (21.0-51.0) L 10/01/24 04:13 [place] % (Auto) 3.0 % (0.0-13.0) 10/01/24 04:13 Eos % (Auto) 0.6 % (0.9-2.9) L 10/01/24 04:13 Baso % (Auto) 0.3 % (0.2-1.0) 10/01/24 04:13 Neut # (Auto) 16.7 x10^3/uL (2.2-4.8) H 10/01/24 04:13 Lymph # (Auto) 0.9 X10^3/uL (1.3-2.9) L 10/01/24 04:13 [place] # (Auto) 0.5 x10^3/uL (0.3-0.8) 10/01/24 04:13 Eos # (Auto) 0.1 x10^3/uL (0.0-0.2) 10/01/24 04:13 Baso # (Auto) 0.0 X10^3/uL (0.0-0.1) 10/01/24 04:13 Absolute Nucleated RBC 0.0 /100WBC 10/01/24 04:13 Total Counted 100 10/01/24 04:13 Neutrophils % (Manual) 92 % (39-76) H 10/01/24 04:13 Lymphocytes % (Manual) 5 % (13-43) L 10/01/24 04:13 Monocytes % (Manual) 3 % (4-9) L 10/01/24 04:13 Plt Morphology Comment Normal (NORMAL) 10/01/24 04:13 RBC Morphology Abnormal (NORMAL) 10/01/24 04:13 Hypochromasia Slight A 10/01/24 04:13 Anisocytosis Slight A 10/01/24 04:13 PT 18.0 SECONDS (11.8-14.3) 09/29/24 21:17 INR Target Range - 09/29/24 21:17 INR 1.47 (0.8-1.3) H 09/29/24 21:17 D-Dimer 3.05 ug/ml (0.0-0.57) H 09/29/24 21:17 Sodium 133 mmol/L (136-145) L 10/01/24 04:13 Corrected Sodium 136 mmol/L (136-145) 10/01/24 04:13 Potassium 4.1 mmol/L (3.5-5.1) 10/01/24 04:13 Chloride 101 mmol/L (98-107) 10/01/24 04:13 Carbon Dioxide 28.7 mmol/L (21-32) 10/01/24 04:13 BUN 15 mg/dL (7-18) 10/01/24 04:13 Creatinine 0.80 mg/dL (0.70-1.30) 10/01/24 04:13 Est GFR (MDRD) Af Amer > 60 (>60) 10/01/24 04:13 Est GFR (MDRD) Non-Af > 60 (>60) 10/01/24 04:13 Glucose 212 mg/dL (65-99) H 10/01/24 04:13 POC Glucose (mg/dL) 192 mg/dL (65-99) H 10/01/24 05:06 Lactic Acid 1.6 mmol/L (0.4-2.0) 09/29/24 21:08 Calcium 8.3 mg/dL (8.5-10.1) L 10/01/24 04:13 Corrected Calcium 10.4 mg/dL (8.5-10.1) H 10/01/24 04:13 Total Bilirubin 0.50 mg/dL (0.2-1.0) 10/01/24 04:13 AST 13 Units/L (15-37) L 10/01/24 04:13 ALT 19 Units/L (12-78) 10/01/24 04:13 Alkaline Phosphatase 151 Units/L (46-116) H 10/01/24 04:13 Creatine Kinase 17 Units/L (39-308) L 09/29/24 21:08 Troponin I High Sens 6.8 ng/L (4.0-60.0) 09/29/24 21:08 B-Natriuretic Peptide 291 pg/mL (0-79) H 09/29/24 21:08 Total Protein 6.9 g/dL (6.4-8.2) 10/01/24 04:13 Albumin 1.4 g/dL (3.4-5.0) L 10/01/24 04:13 Globulin 5.5 g/dL (2.5-4.5) H 10/01/24 04:13 Albumin/Globulin Ratio 0.3 Ratio (1.1-2.1) L 10/01/24 04:13 Plan (1) Pneumonia: Status: Acute Qualifiers: Laterality: bilateral Lung location: unspecified part of lung P neumonia type: due to unspecified organism Qualified Code(s): J18.9 - Pneumonia, unspecified organism (2) Pleural effusion: Status: Acute (3) Acute on chronic heart failure: Status: Acute Qualifiers: Heart failure type: unspecified Qualified Code(s): I50.9 - Heart failure, unspecified (4) Lung cancer: Status: Acute Qualifiers: Laterality: unspecified laterality Lung location: unspecified part of lung Qualified Code(s): C34.90 - Malignant neoplasm of unspecified part of unspecified bronchus or lung (5) Hyponatremia: Status: Acute (6) Anemia: Status: Acute Qualifiers: Anemia type: unspecified type Qualified Code(s): D64.9 - Anemia, unspecified (7) Sacral decubitus ulcer: Status: Chronic Qualifiers: Pressure injury stage: unspecified pressure injury stage Qualified Code(s): L89.159 - Pressure ulcer of sacral region, unspecified stage (8) Generalized weakness: Status: Acute (9) DVT (deep venous thrombosis): Status: Chronic Qualifiers: Affected thrombotic vein of extremity: calf muscle vein Chronicity: a cute DVT location: lower extremity Laterality: left Qualified Code(s): I 82.462 - Acute embolism and thrombosis of left calf muscular vein
[2024-10-01] MEDS: HEMOCYTE PLUS PO SCH (11:17)
--- NOTE | 2024-10-01 11:21 | EKG ---
Test Reason : tachycardia/chf Blood Pressure : */* mmHG Vent. Rate : 108 BPM Atrial Rate : 108 BPM P-R Int : 166 ms QRS Dur : 120 ms QT Int : 380 ms P-R-T Axes : 85 -15 95 degrees QTc Int : 509 ms Sinus tachycardia Nonspecific intraventricular conduction delay Nonspecific ST and T wave abnormality Abnormal ECG When compared with ECG of 13-AUG-2024 17:33, No significant change was found Confirmed by Mannie Wallace MD ([id number]) on 10/01/2024 2:04:19 PM Referred By: Confirmed By: Mannie Wallace MD
[2024-10-01] MEDS: NS 250 ML IV 250 ML IV ONE (12:34)
--- NOTE | 2024-10-01 12:36 | CT ---
EXAMINATION: CTA, CHEST HISTORY: ELEV D DIMER, SOB; ANEMIA, COPD, DM, GERD, HTN, HX LLE DVT, LUNG CA, PVD SX: ANGIOPLASTY/STENTS, JOINT REPLACEMENT, TONSILS, CARDIAC STENTS X 6, LVT LLL STENTS, PAC LCW . COMPARISON: CT chest 08/15/2024 TECHNIQUE: Routine axial imaging of the chest was performed. CT angiography of the chest was performed with maximum intensity projection images and volume rendered images on a workstation. The above CT scan was done with automated exposure control and the mA and kV was adjusted to obtain quality images according to patient size. FINDINGS: Lungs: Elevated left hemidiaphragm with atelectasis in the left lower lung field. Superimposed pneumonia is not totally excluded. There is infiltrate within the lingula as well. There is atelectasis/infiltrate in the right lower lobe and right middle lobe. There is some septal thickening in the right lower lobe which can be seen with interstitial edema or lymphangitic carcinomatosis. No new suspicious pulmonary nodules noted. Central Airways: No obstructing central lesion. Narrowing of the left lower lobe bronchus again noted. Pleura: Moderate left pleural fluid collection which contains gas decreased from the prior study. This could represent a sequela of thoracentesis or procedure. In the absence of procedure this can be seen with developing empyema. This measures 14.6 Hounsfield units. Minimal pleural fluid on the ri ght. No pneumothorax Thoracic Aorta: Tapers and enhances normally Main Pulmonary Trunk: Normal diameter. No CT angiography evidence for acute pulmonary embolus. Lymph Nodes: Prevascular soft tissue mass measures 4.9 x 3.3 cm, precarinal 2.4 x 1.9 cm., AP window 2.8 x 2.5 cm, subcarinal 2 x 1.4 cm, left hilum 3 x 2.3 cm. No new areas of pathologic lymphadenopathy Heart/Pericardium: Normal heart size. No significant pericardial effusion. Coronary artery calcification in the LAD and circumflex Liver: No acute findings. Streak artifact GB/Biliary: Not visualized Spleen: Normal size and density Pancreas: No acute findings as visualized Adrenal Glands: No mass Kidneys limited visualization. Probable cyst left midpolar region partially imaged.. Abdominal Aorta: Tapers and enhances normally. Retroperitoneum: No pathologically enlarged lymph nodes Bowel/Peritoneal Cavity: No acute findings as visualized Osseous Structures: Sclerosis along the T6 vertebral body endplate is again noted. Slight anterior wedging of T6 unchanged. No retropulsed fragments. No new acute findings or bony lesions. Degenerative changes Other: None IMPRESSION: No CTA evidence for acute pulmonary embolus or aortic dissection. Decrease in left pleural fluid collection which is moderate. This contains gas which may represent thoracentesis or other procedure. In the absence of procedure this can be seen with developing abscess. Trace pleural fluid on the right. Infiltrate in the lingula atelectasis/infiltrate in the left lower lobe, atelectasis/infiltrate in the right middle lobe and right lower lobe. Follow-up recommended. Lymphadenopathy appears similar to the prior study. The above CT scan was done with automated exposure control and the mA and kV was adjusted to obtain quality images according to patient size THIS IS AN ELECTRONICALLY VERIFIED FINAL REPORT 10/01/2024 12:32 PM - Electronically signed by Frederic Muniz MD
--- NOTE | 2024-10-01 17:35 | DR.CONSULT ---
CONSULT Consultation for Day of: Date: 10/01/24 Chief Complaint Chief Complaint: SOB/CHF Allergies Allergies Allergy/AdvReac Type Severity Reaction Status Date / Time No Known Drug Allergies Allergy Verified 09/29/24 21:30 History of Present Illness History of Present Illness: 68 yo male- cad s/p stents to lad/diag/cmflx 03/23 after no cabg due to mets cancer- was having VT/syncope- now on amio . eF 50%12/21- doing poorly lately with L pleural effusion- attemted un succesful thoracentesis here month/ 2 ago- admitted for worsening sob/prod cough- found to be anemic, d dimer elevated, bnp 290-on doac for dvt Past Medical History Past Medical History: Anemia, Arthritis, COPD, Diabetes, Dyslipidemia, GERD, Hypertension and Hyperthyroidism Past Surgical History Surgical History: Angioplasty/Stents, Joint Replacement and Tonsillectomy Family History Family Medical History: Diabetes Mellitus and Heart Failure Social History Does patient currently use any type of tobacco product: No Type of Tobacco Use: None Does any household member use tobacco: No Alcohol Use: None Drug Use: None Medications Home Medications: No Known Drug Allergies Allergy (Verified 09/29/24 21:30) CONTINUE taking the following medications albuterol sulfate 90 mcg/actuation aerosol inhaler 2 inh inhalation Q4H PRN 09/29/24 [History] diphenoxylate-atropine 2.5 mg-0.025 mg tablet (Lomotil) 1 tab PO QDAY PRN 09/29/24 [History] tamsulosin 0.4 mg capsule (Flomax) 0.4 mg PO QPM 09/29/24 [History] megestrol 400 mg/10 mL (40 mg/mL) oral suspension 800 mg PO DAILY 09/30/24 [History] Physical Exam Vital Signs: Vital Signs Temperature 98.7 F Temperature 98.9 F Pulse Rate [Left] 118 Pulse Rate [Left] 107 Respiratory Rate 20 Respiratory Rate 23 Respiratory Rate 20 Respiratory Rate 20 Blood Pressure [Left Arm] 97/55 Blood Pressure [Left Arm] 107/55 O2 Sat by Pulse Oximetry 94 O2 Sat by Pulse Oximetry 94 looks chronically ill and acutely ill, coughing up thick cream colored sputum, tachycardia, decreased bs l base , junky bs as well, mild edema labs to note: wbc 18k hct 23 bun 15 k 4.1 bnp 291 ddimer 3 ekg: st ns st/t echo: ant wall motion abnormal ef 40-45% ( down from 50% lastt year) CTA: no clots in lungs, mod left pleural effusion with air ( from thoracentesis vs abscess??) large lymph nodes/ ? pna/? cancer lymph spread Plan (1) Pneumonia: Status: Acute Qualifiers: Pneumonia type: due to unspecified organism Laterality: bilateral Lung location: unspecified part of lung Qualified Code(s): J18.9 - Pneumonia, u nspecified organism (2) Pleural effusion: Status: Acute Narrative Support Text: malignant /chf (3) Acute on chronic heart failure: Status: Acute Qualifiers: Heart failure type: unspecified Qualified Code(s): I50.9 - Heart failure, unspecified Narrative Support Text: ef slightly worse than last year Plan: change bb to long acting- diuresis- bp low - doubt could tolerate entresto (4) Lung cancer: Status: Acute Qualifiers: Laterality: unspecified laterality Lung location: unspecified part of lung Qualified Code(s): C34.90 - Malignant neoplasm of unspecified part of unspecified bronchus or lung (5) Anemia: Status: Acute Qualifiers: Anemia type: unspecified type Qualified Code(s): D64.9 - Anemia, unspecified Narrative Support Text: complicating chf no doubt Plan: blood transfusion (6) Generalized weakness: Status: Acute (7) DVT (deep venous thrombosis): Status: Chronic Qualifiers: Affected thrombotic vein of extremity: calf muscle vein Chronicity: acute DVT location: lower extremity Laterality: left Qualified Code(s): I82.462 - Acute embolism and thrombosis of left calf muscular vein (8) CAD (coronary artery disease): Status: Acute Narrative Support Text: too sick to consider ischemia eval now
[2024-10-01] MEDS: LASIX IVP SCH (20:32)
[2024-10-01] MEDS: TYLENOL 325 MG TAB PO PRN (22:28)
[2024-10-02 04:57] LABS: MEAN PLATELET VOLUME 7.3 fL (7.4-11.0); RED CELL DISTRIBUTION WIDTH 18.3 % (11.6-16.5)
[2024-10-02 05:15] LABS: BAND NEUTROPHILS % 1 % (0-10); PLATELET MORPHOLOGY COMMENT NORMAL (NORMAL)
[2024-10-02 05:19] LABS: COR CA(FOR HYPOALB) 10.6 mg/dL (8.5-10.1); COR NA(FOR HYPERGLY) 137 mmol/L (136-145); CREATININE 0.74 mg/dL (0.70-1.30); TSH (3RD GENERATION) 4.819 uIU/mL (0.358-3.74); eGFR NON BLACK RACES > 60 (>60)
[2024-10-02] MEDS: OMNIPAQUE 350 mg/mL 100 mL BTL 100 ML ONE (07:10)
[2024-10-02] MEDS: NS 250 ML IV 250 ML IV ONE (07:11)
[2024-10-02] MEDS ORDERED: CONSULT PHARMACY - POTASSIUM & MAGNESIUM XX SCH (08:00)
[2024-10-02] MEDS: MEGACE ORAL SUSP 400 MG/10 ML PO SCH (08:30)
[2024-10-02] MEDS: MAG-OX TAB PO SCH (08:31)
[2024-10-02] MEDS: TOPROL XL PO SCH (08:31)
--- NOTE | 2024-10-02 10:12 | PCM.PROG ---
Progress Note Progress Note for Day of Date of Exam: 10/02/24 Subjective Subjective: Patient seen at bedside, no acute events overnight. He is currently admitted for pneumonia, CHF exacerbation, anemia and generalized weakness. He is feeling slightly better today. He did get 2 units of PRBCs, hgb 9.1 this morning. Sputum Cx is growing rare yeast, normal johnson, AIT pending. CTA chest showed bilateral infiltrates, possible LLL abscess and left effusion. Patient has had this pleural effusion for a while. Dr Hawkins attempted to do thoracentesis during last admission but there was not output. He remains on IV antibiotics. Echo was also done, EF 40-45%. Dr Wallace has been consulted. Patient is currently being treated for lung cancer with chemotherapy, last chemo 6 weeks ago. Labs/imaging reviewed: - WBC 17.2 hemoglobin 9.1 potassium 3.9 sodium 137 creatinine 0.74 glucose 290 - CTA chest reviewed - Sputum culture: rare yeast, normal johnson - Blood culture negative - Echo 40-45% Plan: Wean O2 as tolerated, continue bronchodilators. Continue Levaquin and vancomycin for broader coverage. Add Diflucan Follow-up pending cultures. Consult Tele-Cec[facility] for further recommendations. Continue Lasix 20 mg IV twice daily. Consult surgery for possible thoracentesis. Follow cardiology recommendations. Monitor H&H. Replace electrolytes as per protocol. Physical therapy as tolerated. Continue home medications. Increase Lantus to 55 units, continue SSI. Monitor a.m. labs and imaging. Time spent for clinical assessment, reviewing labs and imaging, physical exam, decision making and documentation greater than 45 minutes. Past Medical Family Social History Allergies: Allergies No Known Drug Allergies Allergy (Verified 09/29/24 21:30) Vital Signs and I&O's Vital Signs: Vital Signs Temperature 98.5 F Pulse Rate [Left] 109 Pulse Rate 111 Respiratory Rate 24 Respiratory Rate 18 Respiratory Rate 20 Respiratory Rate 20 Blood Pressure [Left Arm] 110/56 O2 Sat by Pulse Oximetry 94 O2 Sat by Pulse Oximetry 94 Intake and Output: Intake & Output 09/29/24 09/30/24 10/01/24 10/02/24 23:59 23:59 23:59 23:59 Intake Total 1177 / 1177 1220 / 1220 400 / 400 Output Total 1405 / 1405 1950 / 1950 410 / 410 Balance -228 / -228 -730 / -730 -10 / -10 Physical Exam Oriented: Normal Eyes: Normal Ear: Normal Nose: Normal Throat: Normal Respiratory: Generalized, Diminished and Rhonchi Cardiovascular: Edema Auscultation: Bowel Sounds: Normal Palpation: Normal Tenderness: Normal Skin: Normal Musculoskeletal: Leg (1+ BLE) Psychiatric: Normal Mood Description: Calm and Appropriate Affect: Normal Speech Pattern: Clear and Appropriate Laboratory and Diagnostics 10/02/24 04:06 10/02/24 04:06 Labs: 09/30/24 12:20 Sputum - Expectorated Sputum Sputum Culture - Final 09/30/24 12:20 Sputum - Expectorated Sputum - Final 09/29/24 21:17 Blood Blood Culture - Preliminary 09/29/24 21:08 Blood Blood Culture - Preliminary Laboratory WBC 17.2 X10^3/uL (3.6-10.0) H 10/02/24 04:06 RBC 3.33 X10^6/uL (4.7-6.0) L 10/02/24 04:06 Hgb 9.1 g/dL (13.5-18.0) L 10/02/24 04:06 Hct 28.0 % (42.0-54.0) L 10/02/24 04:06 MCV 83.9 fL (80.0-100.0) 10/02/24 04:06 MCH 27.4 pg (27.0-34.0) 10/02/24 04:06 MCHC 32.7 g/dL (33.0-35.0) L 10/02/24 04:06 RDW 18.3 % (11.6-16.5) H 10/02/24 04:06 Plt Count 439 X10^3/uL (150.0-450.0) 10/02/24 04:06 Plt Count Comment Adequate (ADEQUATE) 10/02/24 04:06 MPV 7.3 fL (7.4-11.0) L 10/02/24 04:06 Neut % (Auto) 92.1 % (42.0-75.0) H 10/02/24 04:06 Lymph % (Auto) 3.8 % (21.0-51.0) L 10/02/24 04:06 [place] % (Auto) 3.5 % (0.0-13.0) 10/02/24 04:06 Eos % (Auto) 0.5 % (0.9-2.9) L 10/02/24 04:06 Baso % (Auto) 0.1 % (0.2-1.0) L 10/02/24 04:06 Neut # (Auto) 15.9 x10^3/uL (2.2-4.8) H 10/02/24 04:06 Lymph # (Auto) 0.7 X10^3/uL (1.3-2.9) L 10/02/24 04:06 [place] # (Auto) 0.6 x10^3/uL (0.3-0.8) 10/02/24 04:06 Eos # (Auto) 0.1 x10^3/uL (0.0-0.2) 10/02/24 04:06 Baso # (Auto) 0.0 X10^3/uL (0.0-0.1) 10/02/24 04:06 Absolute Nucleated RBC 0.1 /100WBC 10/02/24 04:06 Total Counted 100 10/02/24 04:06 Neutrophils % (Manual) 94 % (39-76) H 10/02/24 04:06 Band Neutrophils % 1 % (0-10) 10/02/24 04:06 Lymphocytes % (Manual) 3 % (13-43) L 10/02/24 04:06 Monocytes % (Manual) 2 % (4-9) L 10/02/24 04:06 Plt Morphology Comment Normal (NORMAL) 10/02/24 04:06 RBC Morphology Abnormal (NORMAL) 10/02/24 04:06 Hypochromasia Slight A 10/01/24 04:13 Anisocytosis Slight A 10/02/24 04:06 PT 18.0 SECONDS (11.8-14.3) 09/29/24 21:17 INR Target Range - 09/29/24 21:17 INR 1.47 (0.8-1.3) H 09/29/24 21:17 D-Dimer 3.05 ug/ml (0.0-0.57) H 09/29/24 21:17 Sodium 132 mmol/L (136-145) L 10/02/24 04:06 Corrected Sodium 137 mmol/L (136-145) 10/02/24 04:06 Potassium 3.9 mmol/L (3.5-5.1) 10/02/24 04:06 Chloride 99 mmol/L (98-107) 10/02/24 04:06 Carbon Dioxide 28.5 mmol/L (21-32) 10/02/24 04:06 BUN 14 mg/dL (7-18) 10/02/24 04:06 Creatinine 0.74 mg/dL (0.70-1.30) 10/02/24 04:06 Est GFR (MDRD) Af Amer > 60 (>60) 10/02/24 04:06 Est GFR (MDRD) Non-Af > 60 (>60) 10/02/24 04:06 Glucose 299 mg/dL (65-99) H 10/02/24 04:06 POC Glucose (mg/dL) 290 mg/dL (65-99) H 10/02/24 05:23 Lactic Acid 1.6 mmol/L (0.4-2.0) 09/29/24 21:08 Calcium 8.5 mg/dL (8.5-10.1) 10/02/24 04:06 Corrected Calcium 10.6 mg/dL (8.5-10.1) H 10/02/24 04:06 Magnesium 1.9 mg/dL (2.0-2.9) L 10/02/24 04:06 Iron 10 ug/dL (50-175) L 10/01/24 11:20 TIBC 110 ug/dL (250-450) L 10/01/24 11:20 Ferritin 752 ng/mL (26-388) H 10/01/24 11:20 Total Bilirubin 1.00 mg/dL (0.2-1.0) 10/02/24 04:06 AST 15 Units/L (15-37) 10/02/24 04:06 ALT 18 Units/L (12-78) 10/02/24 04:06 Alkaline Phosphatase 160 Units/L (46-116) H 10/02/24 04:06 Creatine Kinase 17 Units/L (39-308) L 09/29/24 21:08 Troponin I High Sens 6.8 ng/L (4.0-60.0) 09/29/24 21:08 B-Natriuretic Peptide 291 pg/mL (0-79) H 09/29/24 21:08 Total Protein 6.9 g/dL (6.4-8.2) 10/02/24 04:06 Albumin 1.4 g/dL (3.4-5.0) L 10/02/24 04:06 Globulin 5.5 g/dL (2.5-4.5) H 10/02/24 04:06 Albumin/Globulin Ratio 0.3 Ratio (1.1-2.1) L 10/02/24 04:06 TSH 3rd Generation 4.819 uIU/mL (0.358-3.74) H 10/02/24 04:06 Blood Type O POSITIVE 10/01/24 11:20 Antibody Screen Negative 10/01/24 11:20 Crossmatch See Detail 10/01/24 11:20 Plan (1) Pneumonia: Status: Acute Qualifiers: Laterality: bilateral Lung location: unspecified part of lung P neumonia type: due to unspecified organism Qualified Code(s): J18.9 - Pneumonia, unspecified organism (2) Pleural effusion: Status: Acute (3) Acute on chronic heart failure: Status: Acute Qualifiers: Heart failure type: unspecified Qualified Code(s): I50.9 - Heart failure, unspecified (4) Lung cancer: Status: Acute Qualifiers: Laterality: unspecified laterality Lung location: unspecified part of lung Qualified Code(s): C34.90 - Malignant neoplasm of unspecified part of unspecified bronchus or lung (5) Anemia: Status: Acute Qualifiers: Anemia type: unspecified type Qualified Code(s): D64.9 - Anemia, unspecified (6) Generalized weakness: Status: Acute (7) DVT (deep venous thrombosis): Status: Chronic Qualifiers: Affected thrombotic vein of extremity: calf muscle vein Chronicity: a cute DVT location: lower extremity Laterality: left Qualified Code(s): I 82.462 - Acute embolism and thrombosis of left calf muscular vein (8) CAD (coronary artery disease): Status: Chronic
[2024-10-02] MEDS: DIFLUCAN 200 MG IV PREMIX* 200 MG/100 ML BAG IV SCH (11:48)
--- NOTE | 2024-10-02 13:01 | NOTE.SOAP ---
Soap Note Note for Day of Date of Exam: 10/02/24 Subjective Data Subjective Data: feels somewhat better- trying to eat but poor appetite- awaits telemed consult regarding lung abscess/effusion Objective Data Objective Data: i/o -500 bp 90-100 p 100 decreased bs left clear right tachy domi mid edema calfs labs: wbc 17 k hct 28 after 2 units alb 1.4 k 3.9 bun/cr 14/0.7 Assessment Assessment: lung cancer/pleural effusion/? pna/? abscess/ cad/cm ef 40-45%/low albumin Plan Plan: changed to long acting BB per guidelines- bp too low to add olga/arb/entresto now- cont diuresis- await consult for pulm guidance of pleural fluid/?abscess
[2024-10-02] MEDS ORDERED: PROVENTIL NEB TX 0.083% 2.5MG/ 3ML NEB SCH (16:45)
[2024-10-02] MEDS: PROVENTIL NEB TX 0.083% 2.5MG/ 3ML NEB SCH (17:06)
[2024-10-02] MEDS: MAXIPIME VIAL 1 GRAM 1 G in NS 50 ML IV 50 ML IV SCH (17:12)
[2024-10-02 20:56] LABS: CREATININE 0.63 mg/dL (0.70-1.30)
[2024-10-02] MEDS: PHARMACY COMMENT IV ONE (21:46)
[2024-10-03 04:58] LABS: MEAN PLATELET VOLUME 7.1 fL (7.4-11.0); RED CELL DISTRIBUTION WIDTH 18.6 % (11.6-16.5)
[2024-10-03 05:08] LABS: COR CA(FOR HYPOALB) 10.8 mg/dL (8.5-10.1); COR NA(FOR HYPERGLY) 138 mmol/L (136-145); CREATININE 0.63 mg/dL (0.70-1.30); eGFR NON BLACK RACES > 60 (>60)
[2024-10-03] MEDS: MAXIPIME VIAL 1 GRAM 1 G in NS 50 ML IV 50 ML IV SCH (05:31)
[2024-10-03] MEDS ORDERED: CONSULT PHARMACY - POTASSIUM & MAGNESIUM XX SCH (07:00)
--- NOTE | 2024-10-03 07:08 | RAD ---
EXAMINATION: CHEST, 1 VIEW HISTORY: PNEUMONIA, SOB ; ANEMIA, COPD, DM, GERD, HTN, LUNG CANCER SX: ANGIO/STENTS, ORTHO, TONSILS, PORT A CATH . COMPARISON STUDY: 10/01/2024 TECHNIQUE: One view FINDINGS: Right-sided Port-A-Cath with tip in the SVC. Cardiomegaly is present. Left- sided opacity minimally decreased. Atelectasis in the right lower lobe. No acute infiltrates. No pneumothorax. Hilar and mediastinal structures and bony structures are unchanged. EKG leads overlie the chest. Technical artifact overlies the right costophrenic angle. IMPRESSION: Minimal decrease in left basilar opacity. Follow-up recommended. Atelectasis in the right lower lobe. No acute infiltrates. THIS IS AN ELECTRONICALLY VERIFIED FINAL REPORT 10/03/2024 7:05 AM - Electronically signed by Frederic Muniz MD
[2024-10-03] MEDS: LANTUS SC SCH (09:10)
[2024-10-03] MEDS: MAG-OX TAB PO SCH (09:11)
--- NOTE | 2024-10-03 09:39 | PCM.PROG ---
Progress Note Progress Note for Day of Date of Exam: 10/31/24 Subjective Subjective: Patient seen at bedside, no acute events overnight. He is feeling better today. He states his appetite is slowly improving. His white count is trending down. Chest x-ray reviewed. Appreciate tele- [place] recommendations. Patient remains on IV antibiotics. He is currently admitted for pneumonia, CHF exacerbation, anemia and generalized weakness. Labs/imaging reviewed: - WBC 13.3 hemoglobin 9.4 potassium 4.1 sodium 136 creatinine 0.63 glucose 174 - CTA chest reviewed - Sputum culture: rare yeast, normal johnson - AIT pending - Blood culture negative - Echo 40-45% Plan: Wean O2 as tolerated, continue bronchodilators. Continue Cefepime and vancomycin for broader coverage. Continue Diflucan Follow AIT results. Follow Tele-Cecilia recommendations. Continue Lasix 20 mg IV twice daily. Follow cardiology recommendations. Monitor H&H. Replace electrolytes as per protocol. Physical therapy as tolerated. Continue home medications. Continue Lantus 55 units, continue SSI. Monitor a.m. labs and imaging. Time spent for clinical assessment, reviewing labs and imaging, physical exam, decision making and documentation greater than 45 minutes. Past Medical Family Social History Allergies: Allergies No Known Drug Allergies Allergy (Verified 09/29/24 21:30) Vital Signs and I&O's Vital Signs: Vital Signs Temperature 99.1 F Temperature 98.9 F Pulse Rate [Left] 106 Pulse Rate [Left] 104 Pulse Rate 104 Respiratory Rate 18 Respiratory Rate 18 Respiratory Rate 20 Respiratory Rate 20 Blood Pressure [Right Arm] 110/60 Blood Pressure [Right Arm] 116/64 O2 Sat by Pulse Oximetry 97 O2 Sat by Pulse Oximetry 95 O2 Sat by Pulse Oximetry 96 Intake and Output: Intake & Output 09/30/24 10/01/24 10/02/24 10/03/24 23:59 23:59 23:59 23:59 Intake Total 1177 / 1177 1220 / 1220 1260 / 1260 50 / 50 Output Total 1405 / 1405 1950 / 1950 1560 / 1560 300 / 300 Balance -228 / -228 -730 / -730 -300 / -300 -250 / -250 Physical Exam Oriented: Normal Eyes: Normal Ear: Normal Nose: Normal Throat: Normal Respiratory: Generalized, Diminished and Rhonchi Cardiovascular: Edema Auscultation: Bowel Sounds: Normal Palpation: Normal Tenderness: Normal Skin: Normal Musculoskeletal: Leg (1+ BLE) Psychiatric: Normal Mood Description: Calm and Appropriate Affect: Normal Speech Pattern: Clear and Appropriate Laboratory and Diagnostics 10/03/24 04:17 10/03/24 04:17 Labs: 09/30/24 12:20 Sputum - Expectorated Sputum Sputum Culture - Final 09/30/24 12:20 Sputum - Expectorated Sputum - Final 09/29/24 21:17 Blood Blood Culture - Preliminary 09/29/24 21:08 Blood Blood Culture - Preliminary Laboratory WBC 13.3 X10^3/uL (3.6-10.0) H 10/03/24 04:17 RBC 3.43 X10^6/uL (4.7-6.0) L 10/03/24 04:17 Hgb 9.4 g/dL (13.5-18.0) L 10/03/24 04:17 Hct 28.7 % (42.0-54.0) L 10/03/24 04:17 MCV 83.6 fL (80.0-100.0) 10/03/24 04:17 MCH 27.3 pg (27.0-34.0) 10/03/24 04:17 MCHC 32.7 g/dL (33.0-35.0) L 10/03/24 04:17 RDW 18.6 % (11.6-16.5) H 10/03/24 04:17 Plt Count 449 X10^3/uL (150.0-450.0) 10/03/24 04:17 Plt Count Comment Adequate (ADEQUATE) 10/02/24 04:06 MPV 7.1 fL (7.4-11.0) L 10/03/24 04:17 Neut % (Auto) 87.8 % (42.0-75.0) H 10/03/24 04:17 Lymph % (Auto) 5.9 % (21.0-51.0) L 10/03/24 04:17 [place] % (Auto) 4.7 % (0.0-13.0) 10/03/24 04:17 Eos % (Auto) 1.4 % (0.9-2.9) 10/03/24 04:17 Baso % (Auto) 0.2 % (0.2-1.0) 10/03/24 04:17 Neut # (Auto) 11.7 x10^3/uL (2.2-4.8) H 10/03/24 04:17 Lymph # (Auto) 0.8 X10^3/uL (1.3-2.9) L 10/03/24 04:17 [place] # (Auto) 0.6 x10^3/uL (0.3-0.8) 10/03/24 04:17 Eos # (Auto) 0.2 x10^3/uL (0.0-0.2) 10/03/24 04:17 Baso # (Auto) 0.0 X10^3/uL (0.0-0.1) 10/03/24 04:17 Absolute Nucleated RBC 0.0 /100WBC 10/03/24 04:17 Total Counted 100 10/02/24 04:06 Neutrophils % (Manual) 94 % (39-76) H 10/02/24 04:06 Band Neutrophils % 1 % (0-10) 10/02/24 04:06 Lymphocytes % (Manual) 3 % (13-43) L 10/02/24 04:06 Monocytes % (Manual) 2 % (4-9) L 10/02/24 04:06 Plt Morphology Comment Normal (NORMAL) 10/02/24 04:06 RBC Morphology Abnormal (NORMAL) 10/02/24 04:06 Hypochromasia Slight A 10/01/24 04:13 Anisocytosis Slight A 10/02/24 04:06 PT 18.0 SECONDS (11.8-14.3) 09/29/24 21:17 INR Target Range - 09/29/24 21:17 INR 1.47 (0.8-1.3) H 09/29/24 21:17 D-Dimer 3.05 ug/ml (0.0-0.57) H 09/29/24 21:17 Sodium 136 mmol/L (136-145) 10/03/24 04:17 Corrected Sodium 138 mmol/L (136-145) 10/03/24 04:17 Potassium 4.1 mmol/L (3.5-5.1) 10/03/24 04:17 Chloride 100 mmol/L (98-107) 10/03/24 04:17 Carbon Dioxide 31.3 mmol/L (21-32) 10/03/24 04:17 BUN 15 mg/dL (7-18) 10/03/24 04:17 Creatinine 0.63 mg/dL (0.70-1.30) L 10/03/24 04:17 Est GFR (MDRD) Af Amer > 60 (>60) 10/03/24 04:17 Est GFR (MDRD) Non-Af > 60 (>60) 10/03/24 04:17 Glucose 183 mg/dL (65-99) H 10/03/24 04:17 POC Glucose (mg/dL) 174 mg/dL (65-99) H 10/03/24 05:12 Lactic Acid 1.6 mmol/L (0.4-2.0) 09/29/24 21:08 Calcium 8.6 mg/dL (8.5-10.1) 10/03/24 04:17 Corrected Calcium 10.8 mg/dL (8.5-10.1) H 10/03/24 04:17 Magnesium 1.9 mg/dL (2.0-2.9) L 10/03/24 04:17 Iron 10 ug/dL (50-175) L 10/01/24 11:20 TIBC 110 ug/dL (250-450) L 10/01/24 11:20 Ferritin 752 ng/mL (26-388) H 10/01/24 11:20 Total Bilirubin 0.40 mg/dL (0.2-1.0) 10/03/24 04:17 AST 18 Units/L (15-37) 10/03/24 04:17 ALT 20 Units/L (12-78) 10/03/24 04:17 Alkaline Phosphatase 171 Units/L (46-116) H 10/03/24 04:17 Creatine Kinase 17 Units/L (39-308) L 09/29/24 21:08 Troponin I High Sens 6.8 ng/L (4.0-60.0) 09/29/24 21:08 B-Natriuretic Peptide 291 pg/mL (0-79) H 09/29/24 21:08 Total Protein 7.0 g/dL (6.4-8.2) 10/03/24 04:17 Albumin 1.3 g/dL (3.4-5.0) L 10/03/24 04:17 Globulin 5.7 g/dL (2.5-4.5) H 10/03/24 04:17 Albumin/Globulin Ratio 0.2 Ratio (1.1-2.1) L 10/03/24 04:17 TSH 3rd Generation 4.819 uIU/mL (0.358-3.74) H 10/02/24 04:06 Vancomycin Trough 10.1 ug/mL (15-20) L 10/02/24 20:12 Blood Type O POSITIVE 10/01/24 11:20 Antibody Screen Negative 10/01/24 11:20 Crossmatch See Detail 10/01/24 11:20 Plan (1) Pneumonia: Status: Acute Qualifiers: Laterality: bilateral Lung location: unspecified part of lung P neumonia type: due to unspecified organism Qualified Code(s): J18.9 - Pneumonia, unspecified organism (2) Pleural effusion: Status: Acute (3) Acute on chronic heart failure: Status: Acute Qualifiers: Heart failure type: unspecified Qualified Code(s): I50.9 - Heart failure, unspecified (4) Lung cancer: Status: Chronic Qualifiers: Laterality: unspecified laterality Lung location: unspecified part of lung Qualified Code(s): C34.90 - Malignant neoplasm of unspecified part of unspecified bronchus or lung (5) Anemia: Status: Chronic Qualifiers: Anemia type: unspecified type Qualified Code(s): D64.9 - Anemia, unspecified (6) Generalized weakness: Status: Acute (7) DVT (deep venous thrombosis): Status: Chronic Qualifiers: Affected thrombotic vein of extremity: calf muscle vein Chronicity: a cute DVT location: lower extremity Laterality: left Qualified Code(s): I 82.462 - Acute embolism and thrombosis of left calf muscular vein (8) CAD (coronary artery disease): Status: Chronic
[2024-10-03] MEDS ORDERED: NS 500 ML IV 500 ML IV ONE (10:38)
--- NOTE | 2024-10-03 14:03 | NOTE.SOAP ---
Soap Note Note for Day of Date of Exam: 10/03/24 Subjective Data Subjective Data: up in chair- looks and feels alittle better today Objective Data Objective Data: no temps I/O -500 bp 90-100 p 100s labs : wbc down to 13k, k 4.1 cr 0.6 no edema decreased bs left tachy Assessment Assessment: pna/cancer/pleural effusion/cad/chf /low albumin- slowly improving Plan Plan: would like to push bb or add olga/arb but bp marginal- cont same- check bnp in am
[2024-10-03] MEDS: NS 500 ML IV 500 ML IV PRN (17:09)
[2024-10-04 05:54] LABS: MEAN PLATELET VOLUME 6.8 fL (7.4-11.0); RED CELL DISTRIBUTION WIDTH 18.8 % (11.6-16.5)
[2024-10-04 06:16] LABS: COR CA(FOR HYPOALB) 10.8 mg/dL (8.5-10.1); COR NA(FOR HYPERGLY) 136 mmol/L (136-145); CREATININE 0.66 mg/dL (0.70-1.30); eGFR NON BLACK RACES > 60 (>60)
[2024-10-04] MEDS: KLOR-CON 10 MEQ TAB PO SCH (09:03)
[2024-10-04] MEDS: LASIX IVP SCH (09:06)
--- NOTE | 2024-10-04 10:52 | PCM.PROG ---
Progress Note Progress Note for Day of Date of Exam: 10/04/24 Subjective Subjective: Patient is sitting up in bed. No acute events overnight. He does report improvement in his symptoms. His white count continues trending down. Chest x-ray reviewed. Appreciate tele- [place] recommendations. Patient remains on IV antibiotics. He is currently admitted for pneumonia, CHF exacerbation, anemia and generalized weakness. AIT received said nonconclusive and would need another one sent. Labs/imaging reviewed: - WBC 10.1, hemoglobin 9.1, platelets 471, sodium 136, potassium 3.8, creatinine 0.66, glucose 120 - CTA chest reviewed - Sputum culture: rare yeast, normal johnson - Blood culture negative - Echo 40-45% Plan: Wean O2 as tolerated, continue bronchodilators. Continue Cefepime and vancomycin for broader coverage. Continue Diflucan. Follow AIT results. Follow Tele-Cecilia recommendations. Lasix increased to IV Lasix 40 mg twice daily. Follow cardiology recommendations. Monitor H&H. Replace electrolytes as per protocol. Physical therapy as tolerated. Continue home medications. Continue Lantus 55 units, continue SSI. Will also order Colace for stool softener. Monitor a.m. labs and imaging. Time spent for clinical assessment, reviewing labs and imaging, physical exam, decision making and documentation greater than 45 minutes. Past Medical Family Social History Allergies: Allergies No Known Drug Allergies Allergy (Verified 09/29/24 21:30) Review of Systems ROS changes noted: see HPI Vital Signs and I&O's Vital Signs: Vital Signs Temperature 97.1 F Temperature 98.8 F Pulse Rate [Left] 103 Pulse Rate [Left] 97 Pulse Rate 105 Pulse Rate 88 Respiratory Rate 21 Respiratory Rate 21 Blood Pressure [Left Arm] 130/69 Blood Pressure [Left Arm] 112/63 O2 Sat by Pulse Oximetry 92 O2 Sat by Pulse Oximetry 95 O2 Sat by Pulse Oximetry 95 O2 Sat by Pulse Oximetry 96 Intake and Output: Intake & Output 10/01/24 10/02/24 10/03/24 10/04/24 23:59 23:59 23:59 23:59 Intake Total 1220 / 1220 1260 / 1260 900 / 900 240 / 240 Output Total 1950 / 1950 1560 / 1560 1550 / 1550 1400 / 1400 Balance -730 / -730 -300 / -300 -650 / -650 -1160 / -1160 Physical Exam Oriented: Normal Eyes: Normal Ear: Normal Nose: Normal Throat: Normal Respiratory: Generalized, Diminished and Rhonchi Cardiovascular: Edema : Normal Auscultation: Bowel Sounds: Normal Tenderness: Normal Skin: Normal Musculoskeletal: Leg (1+ BLE) Psychiatric: Normal Mood Description: Calm and Appropriate Affect: Normal Speech Pattern: Clear and Appropriate Laboratory and Diagnostics 10/04/24 05:30 10/04/24 05:30 Labs: 09/30/24 12:20 Sputum - Expectorated Sputum Sputum Culture - Final 09/30/24 12:20 Sputum - Expectorated Sputum - Final 09/29/24 21:17 Blood Blood Culture - Preliminary 09/29/24 21:08 Blood Blood Culture - Preliminary Laboratory WBC 10.1 X10^3/uL (3.6-10.0) H 10/04/24 05:30 RBC 3.35 X10^6/uL (4.7-6.0) L 10/04/24 05:30 Hgb 9.1 g/dL (13.5-18.0) L 10/04/24 05:30 Hct 28.2 % (42.0-54.0) L 10/04/24 05:30 MCV 84.2 fL (80.0-100.0) 10/04/24 05:30 MCH 27.2 pg (27.0-34.0) 10/04/24 05:30 MCHC 32.3 g/dL (33.0-35.0) L 10/04/24 05:30 RDW 18.8 % (11.6-16.5) H 10/04/24 05:30 Plt Count 471 X10^3/uL (150.0-450.0) H 10/04/24 05:30 Plt Count Comment Adequate (ADEQUATE) 10/02/24 04:06 MPV 6.8 fL (7.4-11.0) L 10/04/24 05:30 Neut % (Auto) 83.9 % (42.0-75.0) H 10/04/24 05:30 Lymph % (Auto) 9.2 % (21.0-51.0) L 10/04/24 05:30 [place] % (Auto) 5.1 % (0.0-13.0) 10/04/24 05:30 Eos % (Auto) 1.5 % (0.9-2.9) 10/04/24 05:30 Baso % (Auto) 0.3 % (0.2-1.0) 10/04/24 05:30 Neut # (Auto) 8.5 x10^3/uL (2.2-4.8) H 10/04/24 05:30 Lymph # (Auto) 0.9 X10^3/uL (1.3-2.9) L 10/04/24 05:30 [place] # (Auto) 0.5 x10^3/uL (0.3-0.8) 10/04/24 05:30 Eos # (Auto) 0.1 x10^3/uL (0.0-0.2) 10/04/24 05:30 Baso # (Auto) 0.0 X10^3/uL (0.0-0.1) 10/04/24 05:30 Absolute Nucleated RBC 0.1 /100WBC 10/04/24 05:30 Total Counted 100 10/02/24 04:06 Neutrophils % (Manual) 94 % (39-76) H 10/02/24 04:06 Band Neutrophils % 1 % (0-10) 10/02/24 04:06 Lymphocytes % (Manual) 3 % (13-43) L 10/02/24 04:06 Monocytes % (Manual) 2 % (4-9) L 10/02/24 04:06 Plt Morphology Comment Normal (NORMAL) 10/02/24 04:06 RBC Morphology Abnormal (NORMAL) 10/02/24 04:06 Hypochromasia Slight A 10/01/24 04:13 Anisocytosis Slight A 10/02/24 04:06 PT 18.0 SECONDS (11.8-14.3) 09/29/24 21:17 INR Target Range - 09/29/24 21:17 INR 1.47 (0.8-1.3) H 09/29/24 21:17 D-Dimer 3.05 ug/ml (0.0-0.57) H 09/29/24 21:17 Sodium 136 mmol/L (136-145) 10/04/24 05:30 Corrected Sodium 136 mmol/L (136-145) 10/04/24 05:30 Potassium 3.8 mmol/L (3.5-5.1) 10/04/24 05:30 Chloride 102 mmol/L (98-107) 10/04/24 05:30 Carbon Dioxide 30.3 mmol/L (21-32) 10/04/24 05:30 BUN 15 mg/dL (7-18) 10/04/24 05:30 Creatinine 0.66 mg/dL (0.70-1.30) L 10/04/24 05:30 Est GFR (MDRD) Af Amer > 60 (>60) 10/04/24 05:30 Est GFR (MDRD) Non-Af > 60 (>60) 10/04/24 05:30 Glucose 120 mg/dL (65-99) H 10/04/24 05:30 POC Glucose (mg/dL) 107 mg/dL (65-99) H 10/04/24 05:27 Lactic Acid 1.6 mmol/L (0.4-2.0) 09/29/24 21:08 Calcium 8.7 mg/dL (8.5-10.1) 10/04/24 05:30 Corrected Calcium 10.8 mg/dL (8.5-10.1) H 10/04/24 05:30 Magnesium 2.1 mg/dL (2.0-2.9) 10/04/24 05:30 Iron 10 ug/dL (50-175) L 10/01/24 11:20 TIBC 110 ug/dL (250-450) L 10/01/24 11:20 Ferritin 752 ng/mL (26-388) H 10/01/24 11:20 Total Bilirubin 0.40 mg/dL (0.2-1.0) 10/04/24 05:30 AST 29 Units/L (15-37) 10/04/24 05:30 ALT 28 Units/L (12-78) 10/04/24 05:30 Alkaline Phosphatase 194 Units/L (46-116) H 10/04/24 05:30 Creatine Kinase 17 Units/L (39-308) L 09/29/24 21:08 Troponin I High Sens 6.8 ng/L (4.0-60.0) 09/29/24 21:08 B-Natriuretic Peptide 436 pg/mL (0-79) H 10/04/24 05:30 Total Protein 6.9 g/dL (6.4-8.2) 10/04/24 05:30 Albumin 1.4 g/dL (3.4-5.0) L 10/04/24 05:30 Globulin 5.5 g/dL (2.5-4.5) H 10/04/24 05:30 Albumin/Globulin Ratio 0.3 Ratio (1.1-2.1) L 10/04/24 05:30 TSH 3rd Generation 4.819 uIU/mL (0.358-3.74) H 10/02/24 04:06 Vancomycin Trough 10.1 ug/mL (15-20) L 10/02/24 20:12 Resp Viral Panel (PCR) See scanned report 10/01/24 13:45 Blood Type O POSITIVE 10/01/24 11:20 Antibody Screen Negative 10/01/24 11:20 Crossmatch See Detail 10/01/24 11:20 Plan (1) Pneumonia: Status: Acute Qualifiers: Pneumonia type: due to unspecified organism Laterality: bilateral Lung location: unspecified part of lung Qualified Code(s): J18.9 - Pneumonia, unspecified organism (2) Pleural effusion: Status: Acute (3) Acute on chronic heart failure: Status: Acute Qualifiers: Heart failure type: unspecified Qualified Code(s): I50.9 - Heart failure, unspecified Plan: received IV lasix, will restart po lasix order echo. (4) Lung cancer: Status: Chronic Qualifiers: Laterality: unspecified laterality Lung location: unspecified part of lung Qualified Code(s): C34.90 - Malignant neoplasm of unspecified part of unspecified bronchus or lung (5) Anemia: Status: Chronic Qualifiers: Anemia type: unspecified type Qualified Code(s): D64.9 - Anemia, unspecified (6) Generalized weakness: Status: Acute (7) DVT (deep venous thrombosis): Status: Chronic Qualifiers: Affected thrombotic vein of extremity: calf muscle vein Chronicity: a cute DVT location: lower extremity Laterality: left Qualified Code(s): I 82.462 - Acute embolism and thrombosis of left calf muscular vein (8) CAD (coronary artery disease): Status: Chronic
[2024-10-04] MEDS: COLACE CAP 100 MG PO SCH (20:59)
[2024-10-05 05:53] LABS: MEAN PLATELET VOLUME 6.8 fL (7.4-11.0); RED CELL DISTRIBUTION WIDTH 19.2 % (11.6-16.5)
[2024-10-05 06:09] LABS: COR CA(FOR HYPOALB) 10.7 mg/dL (8.5-10.1); COR NA(FOR HYPERGLY) 138 mmol/L (136-145); CREATININE 0.70 mg/dL (0.70-1.30); eGFR NON BLACK RACES > 60 (>60)
[2024-10-05] MEDS ORDERED: CONSULT PHARMACY - POTASSIUM & MAGNESIUM XX SCH (07:00)
--- NOTE | 2024-10-05 07:19 | RAD ---
EXAM: Portable AP chest HISTORY: Pleural effusion lung cancer pneumonia COMPARISON: 10/03/2024 FINDINGS: Re-demonstration of similar cardiomegaly and asymmetric bibasal infiltrate/atelectasis, left greater than right. Stable left diaphragm elevation and pleural effusion. The right IJ port is unchanged in position. IMPRESSION: No change in appearance of the chest since 1 day prior. THIS IS AN ELECTRONICALLY VERIFIED FINAL REPORT 10/05/2024 7:16 AM - Electronically signed by Brown Ricks MD
[2024-10-05] MEDS: PHARMACY COMMENT IV ONE (08:42)
[2024-10-05 08:50] LABS: CREATININE 0.63 mg/dL (0.70-1.30)
[2024-10-05] MEDS: K-DUR TAB 20 MEQ PO SCH (09:35)
[2024-10-05] MEDS: MORPHINE SULFATE INJ 2 MG INJ IVP PRN (10:44)
[2024-10-05] MEDS: MIRALAX POWDER (1 DOSE 17 G) PO SCH (13:36)
[2024-10-06 06:03] LABS: MEAN PLATELET VOLUME 7.1 fL (7.4-11.0); RED CELL DISTRIBUTION WIDTH 19.0 % (11.6-16.5)
[2024-10-06 06:20] LABS: COR CA(FOR HYPOALB) 10.6 mg/dL (8.5-10.1); COR NA(FOR HYPERGLY) 137 mmol/L (136-145); CREATININE 0.63 mg/dL (0.70-1.30); eGFR NON BLACK RACES > 60 (>60)
[2024-10-06] MEDS ORDERED: CONSULT PHARMACY - POTASSIUM & MAGNESIUM XX SCH ×2 (07:00)
--- NOTE | 2024-10-06 09:21 | PCM.PROG ---
Progress Note Progress Note for Day of Date of Exam: 10/05/24 Subjective Subjective: Patient is sitting up in bed. No acute events overnight. He reports continued improvement in his symptoms. His white count continues trending down. Appreciate tele- [place] recommendations. Patient remains on IV antibiotics. He is currently admitted for pneumonia, CHF exacerbation, anemia and generalized weakness. AIT received said nonconclusive and would need another one sent which is pending. Labs/imaging reviewed: - WBC 10.1, hemoglobin 10, platelets 518, sodium 136, potassium 3.6, creatinine 0.70, glucose 194 - CTA chest reviewed - Sputum culture: gram negative rods - AIT pending - Blood culture negative - Echo 40-45% Plan: Wean O2 as tolerated, continue bronchodilators. Continue Cefepime and vancomycin for broader coverage. Continue Diflucan. Follow AIT results. Follow Tele-Cecilia recommendations. Lasix IV Lasix 40 mg twice daily. Follow cardiology recommendations. Monitor H&H. Replace electrolytes as per protocol. Physical therapy as tolerated. Continue home medications. Continue Lantus 55 units, continue SSI.He is on Colace for stool softener, will also add MiraLAX to help with bowel movements. Monitor a.m. labs and imaging. Time spent for clinical assessment, reviewing labs and imaging, physical exam, decision making and documentation greater than 45 minutes. Past Medical Family Social History Allergies: Allergies No Known Drug Allergies Allergy (Verified 09/29/24 21:30) Review of Systems ROS changes noted: see HPI Vital Signs and I&O's Vital Signs: Vital Signs Temperature 98.1 F Temperature 98.4 F Pulse Rate [Left] 100 Pulse Rate [Left] 100 Pulse Rate 62 Respiratory Rate 18 Respiratory Rate 18 Respiratory Rate 20 Blood Pressure [Left Arm] 111/59 Blood Pressure [Left Arm] 116/68 O2 Sat by Pulse Oximetry 95 O2 Sat by Pulse Oximetry 97 O2 Sat by Pulse Oximetry 95 Intake and Output: Intake & Output 10/03/24 10/04/24 10/05/24 10/06/24 23:59 23:59 23:59 23:59 Intake Total 900 / 900 1460 / 1460 777 / 777 510 / 510 Output Total 1550 / 1550 3700 / 3700 2750 / 2750 250 / 250 Balance -650 / -650 -0 / -0 -1972 / 260 / 260 Physical Exam Oriented: Normal Eyes: Normal Ear: Normal Nose: Normal Throat: Normal Respiratory: Generalized, Diminished and Rhonchi Cardiovascular: Edema : Normal Auscultation: Bowel Sounds: Normal Tenderness: Normal Skin: Normal Musculoskeletal: Leg (1+ BLE) Psychiatric: Normal Mood Description: Calm and Appropriate Affect: Normal Speech Pattern: Clear and Appropriate Laboratory and Diagnostics 10/06/24 05:21 10/06/24 05:21 Labs: 09/29/24 21:17 Blood Blood Culture - Final 09/29/24 21:08 Blood Blood Culture - Final 10/04/24 12:35 Sputum - Expectorated Sputum Sputum Culture - Preliminary 10/04/24 12:35 Sputum - Expectorated Sputum - Final 09/30/24 12:20 Sputum - Expectorated Sputum Sputum Culture - Final 09/30/24 12:20 Sputum - Expectorated Sputum - Final Laboratory WBC 9.4 X10^3/uL (3.6-10.0) 10/06/24 05:21 RBC 3.64 X10^6/uL (4.7-6.0) L 10/06/24 05:21 Hgb 10.0 g/dL (13.5-18.0) L 10/06/24 05:21 Hct 30.5 % (42.0-54.0) L 10/06/24 05:21 MCV 83.7 fL (80.0-100.0) 10/06/24 05:21 MCH 27.5 pg (27.0-34.0) 10/06/24 05:21 MCHC 32.8 g/dL (33.0-35.0) L 10/06/24 05:21 RDW 19.0 % (11.6-16.5) H 10/06/24 05:21 Plt Count 473 X10^3/uL (150.0-450.0) H 10/06/24 05:21 Plt Count Comment Adequate (ADEQUATE) 10/02/24 04:06 MPV 7.1 fL (7.4-11.0) L 10/06/24 05:21 Neut % (Auto) 80.0 % (42.0-75.0) H 10/06/24 05:21 Lymph % (Auto) 13.7 % (21.0-51.0) L 10/06/24 05:21 [place] % (Auto) 4.6 % (0.0-13.0) 10/06/24 05:21 Eos % (Auto) 1.3 % (0.9-2.9) 10/06/24 05:21 Baso % (Auto) 0.4 % (0.2-1.0) 10/06/24 05:21 Neut # (Auto) 7.6 x10^3/uL (2.2-4.8) H 10/06/24 05:21 Lymph # (Auto) 1.3 X10^3/uL (1.3-2.9) 10/06/24 05:21 [place] # (Auto) 0.4 x10^3/uL (0.3-0.8) 10/06/24 05:21 Eos # (Auto) 0.1 x10^3/uL (0.0-0.2) 10/06/24 05:21 Baso # (Auto) 0.0 X10^3/uL (0.0-0.1) 10/06/24 05:21 Absolute Nucleated RBC 0.0 /100WBC 10/06/24 05:21 Total Counted 100 10/02/24 04:06 Neutrophils % (Manual) 94 % (39-76) H 10/02/24 04:06 Band Neutrophils % 1 % (0-10) 10/02/24 04:06 Lymphocytes % (Manual) 3 % (13-43) L 10/02/24 04:06 Monocytes % (Manual) 2 % (4-9) L 10/02/24 04:06 Plt Morphology Comment Normal (NORMAL) 10/02/24 04:06 RBC Morphology Abnormal (NORMAL) 10/02/24 04:06 Hypochromasia Slight A 10/01/24 04:13 Anisocytosis Slight A 10/02/24 04:06 PT 18.0 SECONDS (11.8-14.3) 09/29/24 21:17 INR Target Range - 09/29/24 21:17 INR 1.47 (0.8-1.3) H 09/29/24 21:17 D-Dimer 3.05 ug/ml (0.0-0.57) H 09/29/24 21:17 Sodium 136 mmol/L (136-145) 10/06/24 05:21 Corrected Sodium 137 mmol/L (136-145) 10/06/24 05:21 Potassium 3.9 mmol/L (3.5-5.1) 10/06/24 05:21 Chloride 101 mmol/L (98-107) 10/06/24 05:21 Carbon Dioxide 29.3 mmol/L (21-32) 10/06/24 05:21 BUN 15 mg/dL (7-18) 10/06/24 05:21 Creatinine 0.63 mg/dL (0.70-1.30) L 10/06/24 05:21 Est GFR (MDRD) Af Amer > 60 (>60) 10/06/24 05:21 Est GFR (MDRD) Non-Af > 60 (>60) 10/06/24 05:21 Glucose 144 mg/dL (65-99) H 10/06/24 05:21 POC Glucose (mg/dL) 141 mg/dL (65-99) H 10/06/24 05:12 Lactic Acid 1.6 mmol/L (0.4-2.0) 09/29/24 21:08 Calcium 8.6 mg/dL (8.5-10.1) 10/06/24 05:21 Corrected Calcium 10.6 mg/dL (8.5-10.1) H 10/06/24 05:21 Magnesium 1.9 mg/dL (2.0-2.9) L 10/06/24 05:21 Iron 10 ug/dL (50-175) L 10/01/24 11:20 TIBC 110 ug/dL (250-450) L 10/01/24 11:20 Ferritin 752 ng/mL (26-388) H 10/01/24 11:20 Total Bilirubin 0.50 mg/dL (0.2-1.0) 10/06/24 05:21 AST 23 Units/L (15-37) 10/06/24 05:21 ALT 34 Units/L (12-78) 10/06/24 05:21 Alkaline Phosphatase 186 Units/L (46-116) H 10/06/24 05:21 Creatine Kinase 17 Units/L (39-308) L 09/29/24 21:08 Troponin I High Sens 6.8 ng/L (4.0-60.0) 09/29/24 21:08 B-Natriuretic Peptide 436 pg/mL (0-79) H 10/04/24 05:30 Total Protein 7.3 g/dL (6.4-8.2) 10/06/24 05:21 Albumin 1.5 g/dL (3.4-5.0) L 10/06/24 05:21 Globulin 5.8 g/dL (2.5-4.5) H 10/06/24 05:21 Albumin/Globulin Ratio 0.3 Ratio (1.1-2.1) L 10/06/24 05:21 TSH 3rd Generation 4.819 uIU/mL (0.358-3.74) H 10/02/24 04:06 Vancomycin Trough 15.6 ug/mL (15-20) 10/05/24 08:05 Resp Viral Panel (PCR) See scanned report 10/01/24 13:45 Blood Type O POSITIVE 10/01/24 11:20 Antibody Screen Negative 10/01/24 11:20 Crossmatch See Detail 10/01/24 11:20 Plan (1) Pneumonia: Status: Acute Qualifiers: Pneumonia type: due to unspecified organism Laterality: bilateral Lung location: unspecified part of lung Qualified Code(s): J18.9 - Pneumonia, unspecified organism (2) Pleural effusion: Status: Acute (3) Acute on chronic heart failure: Status: Acute Qualifiers: Heart failure type: unspecified Qualified Code(s): I50.9 - Heart failure, unspecified Plan: received IV lasix, will restart po lasix order echo. (4) Lung cancer: Status: Chronic Qualifiers: Laterality: unspecified laterality Lung location: unspecified part of lung Qualified Code(s): C34.90 - Malignant neoplasm of unspecified part of unspecified bronchus or lung (5) Anemia: Status: Chronic Qualifiers: Anemia type: unspecified type Qualified Code(s): D64.9 - Anemia, unspecified (6) Generalized weakness: Status: Acute (7) DVT (deep venous thrombosis): Status: Chronic Qualifiers: Affected thrombotic vein of extremity: calf muscle vein Chronicity: a cute DVT location: lower extremity Laterality: left Qualified Code(s): I 82.462 - Acute embolism and thrombosis of left calf muscular vein (8) CAD (coronary artery disease): Status: Chronic
[2024-10-06] MEDS: K-DUR TAB 20 MEQ PO SCH (10:17)
--- NOTE | 2024-10-06 11:02 | PCM.PROG ---
Progress Note Progress Note for Day of Date of Exam: 10/06/24 Subjective Subjective: Patient is sitting up in bed. No acute events overnight. He is feeling better. He is sitting up in the recliner. He states his cough has improved. He remains on 3 L nasal cannula. He just continues to feel weak. He has not worked much with physical therapy. Prior to coming to the hospital, he was able to ambulate with a walker and transfer on his own. He reports improvement in his appetite. He remains on IV antibiotics. Labs/imaging reviewed: - WBC 9.4 hemoglobin 10.0 platelet 473 creatinine 0.63 potassium 3.9 - Sputum culture: Enterobacter cloacae - Chest x-ray no changes noted from previous exam. Plan: DC vancomycin, continue cefepime. Continue bronchodilators and IS. Wean O2 as tolerated. Continue home medications. Replace electrolytes as per protocol. Physical therapy as tolerated. Discussed discharge planning with patient and family in detail. Patient does have home health services but was not able to do physical therapy due to being weak. Add Linzess. Monitor a.m. labs and imaging. Past Medical Family Social History Allergies: Allergies No Known Drug Allergies Allergy (Verified 09/29/24 21:30) Vital Signs and I&O's Vital Signs: Vital Signs Temperature 98.1 F Temperature 98.4 F Pulse Rate [Left] 100 Pulse Rate [Left] 100 Pulse Rate 86 Pulse Rate 62 Respiratory Rate 18 Respiratory Rate 18 Respiratory Rate 18 Respiratory Rate 18 Respiratory Rate 18 Respiratory Rate 20 Blood Pressure [Left Arm] 111/59 Blood Pressure [Left Arm] 116/68 O2 Sat by Pulse Oximetry 94 O2 Sat by Pulse Oximetry 95 O2 Sat by Pulse Oximetry 97 O2 Sat by Pulse Oximetry 95 Intake and Output: Intake & Output 10/03/24 10/04/24 10/05/24 10/06/24 23:59 23:59 23:59 23:59 Intake Total 900 / 900 1460 / 1460 777 / 777 510 / 510 Output Total 1550 / 1550 3700 / 3700 2750 / 2750 250 / 250 Balance -650 / -650 -0 / -2239 -1972 / 260 / 260 Physical Exam Oriented: Normal Eyes: Normal Ear: Normal Nose: Normal Throat: Normal Respiratory: Generalized, Diminished and Rhonchi Cardiovascular: Edema Auscultation: Bowel Sounds: Normal Palpation: Normal Tenderness: Normal Skin: Normal Musculoskeletal: Leg (1+ BLE) Psychiatric: Normal Mood Description: Calm and Appropriate Affect: Normal Speech Pattern: Clear and Appropriate Laboratory and Diagnostics 10/06/24 05:21 10/06/24 05:21 Labs: 10/04/24 12:35 Sputum - Expectorated Sputum Sputum Culture - Final Enterobacter Cloacae 10/04/24 12:35 Sputum - Expectorated Sputum - Final 09/29/24 21:17 Blood Blood Culture - Final 09/29/24 21:08 Blood Blood Culture - Final 09/30/24 12:20 Sputum - Expectorated Sputum Sputum Culture - Final 09/30/24 12:20 Sputum - Expectorated Sputum - Final Laboratory WBC 9.4 X10^3/uL (3.6-10.0) 10/06/24 05:21 RBC 3.64 X10^6/uL (4.7-6.0) L 10/06/24 05:21 Hgb 10.0 g/dL (13.5-18.0) L 10/06/24 05:21 Hct 30.5 % (42.0-54.0) L 10/06/24 05:21 MCV 83.7 fL (80.0-100.0) 10/06/24 05:21 MCH 27.5 pg (27.0-34.0) 10/06/24 05:21 MCHC 32.8 g/dL (33.0-35.0) L 10/06/24 05:21 RDW 19.0 % (11.6-16.5) H 10/06/24 05:21 Plt Count 473 X10^3/uL (150.0-450.0) H 10/06/24 05:21 Plt Count Comment Adequate (ADEQUATE) 10/02/24 04:06 MPV 7.1 fL (7.4-11.0) L 10/06/24 05:21 Neut % (Auto) 80.0 % (42.0-75.0) H 10/06/24 05:21 Lymph % (Auto) 13.7 % (21.0-51.0) L 10/06/24 05:21 [place] % (Auto) 4.6 % (0.0-13.0) 10/06/24 05:21 Eos % (Auto) 1.3 % (0.9-2.9) 10/06/24 05:21 Baso % (Auto) 0.4 % (0.2-1.0) 10/06/24 05:21 Neut # (Auto) 7.6 x10^3/uL (2.2-4.8) H 10/06/24 05:21 Lymph # (Auto) 1.3 X10^3/uL (1.3-2.9) 10/06/24 05:21 [place] # (Auto) 0.4 x10^3/uL (0.3-0.8) 10/06/24 05:21 Eos # (Auto) 0.1 x10^3/uL (0.0-0.2) 10/06/24 05:21 Baso # (Auto) 0.0 X10^3/uL (0.0-0.1) 10/06/24 05:21 Absolute Nucleated RBC 0.0 /100WBC 10/06/24 05:21 Total Counted 100 10/02/24 04:06 Neutrophils % (Manual) 94 % (39-76) H 10/02/24 04:06 Band Neutrophils % 1 % (0-10) 10/02/24 04:06 Lymphocytes % (Manual) 3 % (13-43) L 10/02/24 04:06 Monocytes % (Manual) 2 % (4-9) L 10/02/24 04:06 Plt Morphology Comment Normal (NORMAL) 10/02/24 04:06 RBC Morphology Abnormal (NORMAL) 10/02/24 04:06 Hypochromasia Slight A 10/01/24 04:13 Anisocytosis Slight A 10/02/24 04:06 PT 18.0 SECONDS (11.8-14.3) 09/29/24 21:17 INR Target Range - 09/29/24 21:17 INR 1.47 (0.8-1.3) H 09/29/24 21:17 D-Dimer 3.05 ug/ml (0.0-0.57) H 09/29/24 21:17 Sodium 136 mmol/L (136-145) 10/06/24 05:21 Corrected Sodium 137 mmol/L (136-145) 10/06/24 05:21 Potassium 3.9 mmol/L (3.5-5.1) 10/06/24 05:21 Chloride 101 mmol/L (98-107) 10/06/24 05:21 Carbon Dioxide 29.3 mmol/L (21-32) 10/06/24 05:21 BUN 15 mg/dL (7-18) 10/06/24 05:21 Creatinine 0.63 mg/dL (0.70-1.30) L 10/06/24 05:21 Est GFR (MDRD) Af Amer > 60 (>60) 10/06/24 05:21 Est GFR (MDRD) Non-Af > 60 (>60) 10/06/24 05:21 Glucose 144 mg/dL (65-99) H 10/06/24 05:21 POC Glucose (mg/dL) 141 mg/dL (65-99) H 10/06/24 05:12 Lactic Acid 1.6 mmol/L (0.4-2.0) 09/29/24 21:08 Calcium 8.6 mg/dL (8.5-10.1) 10/06/24 05:21 Corrected Calcium 10.6 mg/dL (8.5-10.1) H 10/06/24 05:21 Magnesium 1.9 mg/dL (2.0-2.9) L 10/06/24 05:21 Iron 10 ug/dL (50-175) L 10/01/24 11:20 TIBC 110 ug/dL (250-450) L 10/01/24 11:20 Ferritin 752 ng/mL (26-388) H 10/01/24 11:20 Total Bilirubin 0.50 mg/dL (0.2-1.0) 10/06/24 05:21 AST 23 Units/L (15-37) 10/06/24 05:21 ALT 34 Units/L (12-78) 10/06/24 05:21 Alkaline Phosphatase 186 Units/L (46-116) H 10/06/24 05:21 Creatine Kinase 17 Units/L (39-308) L 09/29/24 21:08 Troponin I High Sens 6.8 ng/L (4.0-60.0) 09/29/24 21:08 B-Natriuretic Peptide 436 pg/mL (0-79) H 10/04/24 05:30 Total Protein 7.3 g/dL (6.4-8.2) 10/06/24 05:21 Albumin 1.5 g/dL (3.4-5.0) L 10/06/24 05:21 Globulin 5.8 g/dL (2.5-4.5) H 10/06/24 05:21 Albumin/Globulin Ratio 0.3 Ratio (1.1-2.1) L 10/06/24 05:21 TSH 3rd Generation 4.819 uIU/mL (0.358-3.74) H 10/02/24 04:06 Vancomycin Trough 15.6 ug/mL (15-20) 10/05/24 08:05 Resp Viral Panel (PCR) See scanned report 10/01/24 13:45 Blood Type O POSITIVE 10/01/24 11:20 Antibody Screen Negative 10/01/24 11:20 Crossmatch See Detail 10/01/24 11:20 Plan (1) Pneumonia: Status: Acute Qualifiers: Laterality: bilateral Lung location: unspecified part of lung P neumonia type: due to unspecified organism Qualified Code(s): J18.9 - Pneumonia, unspecified organism (2) Pleural effusion: Status: Acute (3) Acute on chronic heart failure: Status: Acute Qualifiers: Heart failure type: unspecified Qualified Code(s): I50.9 - Heart failure, unspecified (4) Lung cancer: Status: Chronic Qualifiers: Laterality: unspecified laterality Lung location: unspecified part of lung Qualified Code(s): C34.90 - Malignant neoplasm of unspecified part of unspecified bronchus or lung (5) Anemia: Status: Chronic Qualifiers: Anemia type: unspecified type Qualified Code(s): D64.9 - Anemia, unspecified (6) Generalized weakness: Status: Acute (7) DVT (deep venous thrombosis): Status: Chronic Qualifiers: Affected thrombotic vein of extremity: calf muscle vein Chronicity: a cute DVT location: lower extremity Laterality: left Qualified Code(s): I 82.462 - Acute embolism and thrombosis of left calf muscular vein (8) CAD (coronary artery disease): Status: Chronic
[2024-10-06] MEDS: LINZESS PO SCH (11:24)
[2024-10-07 05:31] LABS: MEAN PLATELET VOLUME 7.0 fL (7.4-11.0); RED CELL DISTRIBUTION WIDTH 19.2 % (11.6-16.5)
[2024-10-07 05:40] LABS: COR CA(FOR HYPOALB) 10.7 mg/dL (8.5-10.1); COR NA(FOR HYPERGLY) 137 mmol/L (136-145); CREATININE 0.66 mg/dL (0.70-1.30); eGFR NON BLACK RACES > 60 (>60)
--- NOTE | 2024-10-07 10:37 | PCM.PROG ---
Progress Note Progress Note for Day of Date of Exam: 10/07/24 Subjective Subjective: Patient seen at bedside, no acute events overnight. He does report not feeling as good today. He had had a lot of productive cough today. He has been afebrile. WBC slightly up 11.8. He has not been eating much but drinking Glucerna. Labs/imaging reviewed: - WBC 11.8 hemoglobin 10.4 platelet 530 creatinine 0.66 potassium 4.0 - Sputum culture: Enterobacter cloacae Plan: Repeat CXR. Continue cefepime. Continue bronchodilators and IS. Wean O2 as tolerated. Continue home medications. Replace electrolytes as per protocol. Physical therapy as tolerated. Discussed discharge planning with patient and family in detail. Patient does have home health services but was not able to do physical therapy due to being weak. Continue Linzess. Monitor a.m. labs and imaging. Past Medical Family Social History Allergies: Allergies No Known Drug Allergies Allergy (Verified 09/29/24 21:30) Vital Signs and I&O's Vital Signs: Vital Signs Temperature 98.2 F Temperature 98.8 F Pulse Rate [Left] 107 Pulse Rate [Left] 106 Pulse Rate 106 Pulse Rate 83 Respiratory Rate 20 Respiratory Rate 19 Blood Pressure [Left Arm] 153/81 Blood Pressure [Left Arm] 98/60 O2 Sat by Pulse Oximetry 91 O2 Sat by Pulse Oximetry 94 O2 Sat by Pulse Oximetry 95 O2 Sat by Pulse Oximetry 95 Intake and Output: Intake & Output 10/04/24 10/05/24 10/06/24 10/07/24 23:59 23:59 23:59 23:59 Intake Total 1460 / 1460 777 / 777 1220 / 1220 75 / 75 Output Total 3700 / 3700 2750 / 2750 2350 / 2350 120 / 120 Balance -2240 / -2240 -1973 / -1973 -1130 / -1130 -45 / -45 Physical Exam Oriented: Normal Eyes: Normal Ear: Normal Nose: Normal Throat: Normal Respiratory: Generalized, Diminished and Rhonchi Cardiovascular: Edema Auscultation: Bowel Sounds: Normal Palpation: Normal Tenderness: Normal Skin: Normal Musculoskeletal: Leg (1+ BLE) Psychiatric: Normal Mood Description: Calm and Appropriate Affect: Normal Speech Pattern: Clear and Appropriate Laboratory and Diagnostics 10/07/24 05:10 10/07/24 05:10 Labs: 10/04/24 12:35 Sputum - Expectorated Sputum Sputum Culture - Final Enterobacter Cloacae 10/04/24 12:35 Sputum - Expectorated Sputum - Final 09/29/24 21:17 Blood Blood Culture - Final 09/29/24 21:08 Blood Blood Culture - Final 09/30/24 12:20 Sputum - Expectorated Sputum Sputum Culture - Final 09/30/24 12:20 Sputum - Expectorated Sputum - Final Laboratory WBC 11.8 X10^3/uL (3.6-10.0) H 10/07/24 05:10 RBC 3.83 X10^6/uL (4.7-6.0) L 10/07/24 05:10 Hgb 10.4 g/dL (13.5-18.0) L 10/07/24 05:10 Hct 32.0 % (42.0-54.0) L 10/07/24 05:10 MCV 83.4 fL (80.0-100.0) 10/07/24 05:10 MCH 27.0 pg (27.0-34.0) 10/07/24 05:10 MCHC 32.4 g/dL (33.0-35.0) L 10/07/24 05:10 RDW 19.2 % (11.6-16.5) H 10/07/24 05:10 Plt Count 530 X10^3/uL (150.0-450.0) H 10/07/24 05:10 Plt Count Comment Adequate (ADEQUATE) 10/02/24 04:06 MPV 7.0 fL (7.4-11.0) L 10/07/24 05:10 Neut % (Auto) 82.0 % (42.0-75.0) H 10/07/24 05:10 Lymph % (Auto) 11.8 % (21.0-51.0) L 10/07/24 05:10 [place] % (Auto) 4.8 % (0.0-13.0) 10/07/24 05:10 Eos % (Auto) 1.0 % (0.9-2.9) 10/07/24 05:10 Baso % (Auto) 0.4 % (0.2-1.0) 10/07/24 05:10 Neut # (Auto) 9.7 x10^3/uL (2.2-4.8) H 10/07/24 05:10 Lymph # (Auto) 1.4 X10^3/uL (1.3-2.9) 10/07/24 05:10 [place] # (Auto) 0.6 x10^3/uL (0.3-0.8) 10/07/24 05:10 Eos # (Auto) 0.1 x10^3/uL (0.0-0.2) 10/07/24 05:10 Baso # (Auto) 0.0 X10^3/uL (0.0-0.1) 10/07/24 05:10 Absolute Nucleated RBC 0.1 /100WBC 10/07/24 05:10 Total Counted 100 10/02/24 04:06 Neutrophils % (Manual) 94 % (39-76) H 10/02/24 04:06 Band Neutrophils % 1 % (0-10) 10/02/24 04:06 Lymphocytes % (Manual) 3 % (13-43) L 10/02/24 04:06 Monocytes % (Manual) 2 % (4-9) L 10/02/24 04:06 Plt Morphology Comment Normal (NORMAL) 10/02/24 04:06 RBC Morphology Abnormal (NORMAL) 10/02/24 04:06 Hypochromasia Slight A 10/01/24 04:13 Anisocytosis Slight A 10/02/24 04:06 PT 18.0 SECONDS (11.8-14.3) 09/29/24 21:17 INR Target Range - 09/29/24 21:17 INR 1.47 (0.8-1.3) H 09/29/24 21:17 D-Dimer 3.05 ug/ml (0.0-0.57) H 09/29/24 21:17 Sodium 136 mmol/L (136-145) 10/07/24 05:10 Corrected Sodium 137 mmol/L (136-145) 10/07/24 05:10 Potassium 4.0 mmol/L (3.5-5.1) 10/07/24 05:10 Chloride 101 mmol/L (98-107) 10/07/24 05:10 Carbon Dioxide 29.7 mmol/L (21-32) 10/07/24 05:10 BUN 15 mg/dL (7-18) 10/07/24 05:10 Creatinine 0.66 mg/dL (0.70-1.30) L 10/07/24 05:10 Est GFR (MDRD) Af Amer > 60 (>60) 10/07/24 05:10 Est GFR (MDRD) Non-Af > 60 (>60) 10/07/24 05:10 Glucose 121 mg/dL (65-99) H 10/07/24 05:10 POC Glucose (mg/dL) 125 mg/dL (65-99) H 10/07/24 05:19 Lactic Acid 1.6 mmol/L (0.4-2.0) 09/29/24 21:08 Calcium 8.8 mg/dL (8.5-10.1) 10/07/24 05:10 Corrected Calcium 10.7 mg/dL (8.5-10.1) H 10/07/24 05:10 Magnesium 1.9 mg/dL (2.0-2.9) L 10/06/24 05:21 Iron 10 ug/dL (50-175) L 10/01/24 11:20 TIBC 110 ug/dL (250-450) L 10/01/24 11:20 Ferritin 752 ng/mL (26-388) H 10/01/24 11:20 Total Bilirubin 0.60 mg/dL (0.2-1.0) 10/07/24 05:10 AST 22 Units/L (15-37) 10/07/24 05:10 ALT 29 Units/L (12-78) 10/07/24 05:10 Alkaline Phosphatase 178 Units/L (46-116) H 10/07/24 05:10 Creatine Kinase 17 Units/L (39-308) L 09/29/24 21:08 Troponin I High Sens 6.8 ng/L (4.0-60.0) 09/29/24 21:08 B-Natriuretic Peptide 436 pg/mL (0-79) H 10/04/24 05:30 Total Protein 7.5 g/dL (6.4-8.2) 10/07/24 05:10 Albumin 1.6 g/dL (3.4-5.0) L 10/07/24 05:10 Globulin 5.9 g/dL (2.5-4.5) H 10/07/24 05:10 Albumin/Globulin Ratio 0.3 Ratio (1.1-2.1) L 10/07/24 05:10 TSH 3rd Generation 4.819 uIU/mL (0.358-3.74) H 10/02/24 04:06 Vancomycin Trough 15.6 ug/mL (15-20) 10/05/24 08:05 Resp Viral Panel (PCR) See scanned report 10/04/24 10:43 Blood Type O POSITIVE 10/01/24 11:20 Antibody Screen Negative 10/01/24 11:20 Crossmatch See Detail 10/01/24 11:20 Plan (1) Pneumonia: Status: Acute Qualifiers: Laterality: bilateral Lung location: unspecified part of lung P neumonia type: due to unspecified organism Qualified Code(s): J18.9 - Pneumonia, unspecified organism (2) Pleural effusion: Status: Acute (3) Acute on chronic heart failure: Status: Acute Qualifiers: Heart failure type: unspecified Qualified Code(s): I50.9 - Heart failure, unspecified (4) Lung cancer: Status: Chronic Qualifiers: Laterality: unspecified laterality Lung location: unspecified part of lung Qualified Code(s): C34.90 - Malignant neoplasm of unspecified part of unspecified bronchus or lung (5) Anemia: Status: Chronic Qualifiers: Anemia type: unspecified type Qualified Code(s): D64.9 - Anemia, unspecified (6) Generalized weakness: Status: Acute (7) DVT (deep venous thrombosis): Status: Chronic Qualifiers: Affected thrombotic vein of extremity: calf muscle vein Chronicity: a cute DVT location: lower extremity Laterality: left Qualified Code(s): I 82.462 - Acute embolism and thrombosis of left calf muscular vein (8) CAD (coronary artery disease): Status: Chronic
--- NOTE | 2024-10-07 18:23 | RAD ---
EXAM: CHEST HISTORY: COPIOUS AMOUNTS OF SPUTUM; COMPARISON: October 04, 2024. TECHNIQUE: Frontal view of the chest was submitted for interpretation. FINDINGS: Right-sided Port-A-Cath is stable the cardiomediastinal silhouette is within normal limits. Lungs show continued consolidation throughout the left lung with left pleural effusion. IMPRESSION: Continued consolidation throughout the left lung with left pleural effusion. THIS IS AN ELECTRONICALLY VERIFIED FINAL REPORT 10/07/2024 6:20 PM - Electronically signed by Ranjit Alba MD
[2024-10-08 05:40] LABS: MEAN PLATELET VOLUME 7.0 fL (7.4-11.0); RED CELL DISTRIBUTION WIDTH 19.5 % (11.6-16.5)
[2024-10-08 05:54] LABS: COR CA(FOR HYPOALB) 10.7 mg/dL (8.5-10.1); CREATININE 0.63 mg/dL (0.70-1.30); eGFR NON BLACK RACES > 60 (>60)
[2024-10-08] MEDS: CONSULT PHARMACY - POTASSIUM & MAGNESIUM XX SCH (08:10)
[2024-10-08] MEDS: MAG-OX TAB PO SCH (08:49)
[2024-10-08] MEDS: VIBRAMYCIN PO SCH (09:26)
[2024-10-08] MEDS: LANTUS SC SCH (09:49)
--- NOTE | 2024-10-08 10:19 | PCM.PROG ---
Progress Note Progress Note for Day of Date of Exam: 10/08/24 Subjective Subjective: Patient seen at bedside, no acute events overnight. He reports feeling better this morning. His cough is better. He did sit up in the recliner yesterday. He has not ambulated much. His appetite is still not good, drank some Glucerna. Labs/imaging reviewed: - WBC 13.4 hemoglobin 9.6 platelet 482 creatinine 0.63 potassium 4.2 - Sputum culture: Enterobacter cloacae -CXR: similar left effusion and consolidation Plan: Continue cefepime, add PO doxycycline. Continue bronchodilators and IS. Wean O2 as tolerated. Continue home medications. Replace electrolytes as per protocol. Physical therapy as tolerated. Encouraged PO intake, patient has been on home med Megace. CM will work on DC planning with the family, possible home health with PT services and nursing care. Remove Pure Wick. Monitor AM labs/imaging. Past Medical Family Social History Allergies: Allergies No Known Drug Allergies Allergy (Verified 09/29/24 21:30) Vital Signs and I&O's Vital Signs: Vital Signs Temperature 97.1 F Temperature 98.0 F Pulse Rate [Left] 104 Pulse Rate [Left] 95 Pulse Rate 103 Pulse Rate 93 Respiratory Rate 18 Respiratory Rate 21 Blood Pressure [Left Arm] 100/55 Blood Pressure [Left Arm] 104/62 O2 Sat by Pulse Oximetry 95 O2 Sat by Pulse Oximetry 97 O2 Sat by Pulse Oximetry 94 O2 Sat by Pulse Oximetry 98 Intake and Output: Intake & Output 10/05/24 10/06/24 10/07/24 10/08/24 23:59 23:59 23:59 23:59 Intake Total 777 / 777 1220 / 1220 858 / 858 50 / 50 Output Total 2750 / 2750 2350 / 2350 1620 / 1620 110 / 110 Balance -1973 / -1973 -1130 / -1130 -762 / -762 -60 / -60 Physical Exam Oriented: Normal Eyes: Normal Ear: Normal Nose: Normal Throat: Normal Respiratory: Generalized, Diminished and Rhonchi Cardiovascular: Edema Auscultation: Bowel Sounds: Normal Palpation: Normal Tenderness: Normal Skin: Normal Musculoskeletal: Leg (1+ BLE) Psychiatric: Normal Mood Description: Calm and Appropriate Affect: Normal Speech Pattern: Clear and Appropriate Laboratory and Diagnostics 10/08/24 05:10 10/08/24 05:10 Labs: 10/04/24 12:35 Sputum - Expectorated Sputum Sputum Culture - Final Enterobacter Cloacae 10/04/24 12:35 Sputum - Expectorated Sputum - Final 09/29/24 21:17 Blood Blood Culture - Final 09/29/24 21:08 Blood Blood Culture - Final 09/30/24 12:20 Sputum - Expectorated Sputum Sputum Culture - Final 09/30/24 12:20 Sputum - Expectorated Sputum - Final Laboratory WBC 13.4 X10^3/uL (3.6-10.0) H 10/08/24 05:10 RBC 3.55 X10^6/uL (4.7-6.0) L 10/08/24 05:10 Hgb 9.6 g/dL (13.5-18.0) L 10/08/24 05:10 Hct 29.6 % (42.0-54.0) L 10/08/24 05:10 MCV 83.4 fL (80.0-100.0) 10/08/24 05:10 MCH 27.2 pg (27.0-34.0) 10/08/24 05:10 MCHC 32.6 g/dL (33.0-35.0) L 10/08/24 05:10 RDW 19.5 % (11.6-16.5) H 10/08/24 05:10 Plt Count 482 X10^3/uL (150.0-450.0) H 10/08/24 05:10 Plt Count Comment Adequate (ADEQUATE) 10/02/24 04:06 MPV 7.0 fL (7.4-11.0) L 10/08/24 05:10 Neut % (Auto) 85.2 % (42.0-75.0) H 10/08/24 05:10 Lymph % (Auto) 10.0 % (21.0-51.0) L 10/08/24 05:10 [place] % (Auto) 3.1 % (0.0-13.0) 10/08/24 05:10 Eos % (Auto) 1.3 % (0.9-2.9) 10/08/24 05:10 Baso % (Auto) 0.4 % (0.2-1.0) 10/08/24 05:10 Neut # (Auto) 11.5 x10^3/uL (2.2-4.8) H 10/08/24 05:10 Lymph # (Auto) 1.3 X10^3/uL (1.3-2.9) 10/08/24 05:10 [place] # (Auto) 0.4 x10^3/uL (0.3-0.8) 10/08/24 05:10 Eos # (Auto) 0.2 x10^3/uL (0.0-0.2) 10/08/24 05:10 Baso # (Auto) 0.1 X10^3/uL (0.0-0.1) 10/08/24 05:10 Absolute Nucleated RBC 0.0 /100WBC 10/08/24 05:10 Total Counted 100 10/02/24 04:06 Neutrophils % (Manual) 94 % (39-76) H 10/02/24 04:06 Band Neutrophils % 1 % (0-10) 10/02/24 04:06 Lymphocytes % (Manual) 3 % (13-43) L 10/02/24 04:06 Monocytes % (Manual) 2 % (4-9) L 10/02/24 04:06 Plt Morphology Comment Normal (NORMAL) 10/02/24 04:06 RBC Morphology Abnormal (NORMAL) 10/02/24 04:06 Hypochromasia Slight A 10/01/24 04:13 Anisocytosis Slight A 10/02/24 04:06 PT 18.0 SECONDS (11.8-14.3) 09/29/24 21:17 INR Target Range - 09/29/24 21:17 INR 1.47 (0.8-1.3) H 09/29/24 21:17 D-Dimer 3.05 ug/ml (0.0-0.57) H 09/29/24 21:17 Sodium 137 mmol/L (136-145) 10/08/24 05:10 Corrected Sodium TNP 10/08/24 05:10 Potassium 4.2 mmol/L (3.5-5.1) 10/08/24 05:10 Chloride 100 mmol/L (98-107) 10/08/24 05:10 Carbon Dioxide 33.6 mmol/L (21-32) H 10/08/24 05:10 BUN 15 mg/dL (7-18) 10/08/24 05:10 Creatinine 0.63 mg/dL (0.70-1.30) L 10/08/24 05:10 Est GFR (MDRD) Af Amer > 60 (>60) 10/08/24 05:10 Est GFR (MDRD) Non-Af > 60 (>60) 10/08/24 05:10 Glucose 88 mg/dL (65-99) 10/08/24 05:10 POC Glucose (mg/dL) 91 mg/dL (65-99) 10/08/24 05:08 Lactic Acid 1.6 mmol/L (0.4-2.0) 09/29/24 21:08 Calcium 8.7 mg/dL (8.5-10.1) 10/08/24 05:10 Corrected Calcium 10.7 mg/dL (8.5-10.1) H 10/08/24 05:10 Magnesium 1.8 mg/dL (2.0-2.9) L 10/08/24 05:10 Iron 10 ug/dL (50-175) L 10/01/24 11:20 TIBC 110 ug/dL (250-450) L 10/01/24 11:20 Ferritin 752 ng/mL (26-388) H 10/01/24 11:20 Total Bilirubin 0.50 mg/dL (0.2-1.0) 10/08/24 05:10 AST 21 Units/L (15-37) 10/08/24 05:10 ALT 28 Units/L (12-78) 10/08/24 05:10 Alkaline Phosphatase 157 Units/L (46-116) H 10/08/24 05:10 Creatine Kinase 17 Units/L (39-308) L 09/29/24 21:08 Troponin I High Sens 6.8 ng/L (4.0-60.0) 09/29/24 21:08 B-Natriuretic Peptide 436 pg/mL (0-79) H 10/04/24 05:30 Total Protein 7.1 g/dL (6.4-8.2) 10/08/24 05:10 Albumin 1.5 g/dL (3.4-5.0) L 10/08/24 05:10 Globulin 5.6 g/dL (2.5-4.5) H 10/08/24 05:10 Albumin/Globulin Ratio 0.3 Ratio (1.1-2.1) L 10/08/24 05:10 TSH 3rd Generation 4.819 uIU/mL (0.358-3.74) H 10/02/24 04:06 Vancomycin Trough 15.6 ug/mL (15-20) 10/05/24 08:05 Resp Viral Panel (PCR) See scanned report 10/04/24 10:43 Blood Type O POSITIVE 10/01/24 11:20 Antibody Screen Negative 10/01/24 11:20 Crossmatch See Detail 10/01/24 11:20 Plan (1) Pneumonia: Status: Acute Qualifiers: Laterality: bilateral Lung location: unspecified part of lung P neumonia type: due to unspecified organism Qualified Code(s): J18.9 - Pneumonia, unspecified organism (2) Pleural effusion: Status: Acute (3) Acute on chronic heart failure: Status: Acute Qualifiers: Heart failure type: unspecified Qualified Code(s): I50.9 - Heart failure, unspecified (4) Lung cancer: Status: Chronic Qualifiers: Laterality: unspecified laterality Lung location: unspecified part of lung Qualified Code(s): C34.90 - Malignant neoplasm of unspecified part of unspecified bronchus or lung (5) Anemia: Status: Chronic Qualifiers: Anemia type: unspecified type Qualified Code(s): D64.9 - Anemia, unspecified (6) Generalized weakness: Status: Acute (7) DVT (deep venous thrombosis): Status: Chronic Qualifiers: Affected thrombotic vein of extremity: calf muscle vein Chronicity: a cute DVT location: lower extremity Laterality: left Qualified Code(s): I 82.462 - Acute embolism and thrombosis of left calf muscular vein (8) CAD (coronary artery disease): Status: Chronic
[2024-10-08] MEDS: ALBUMIN HUMAN 25%- 100 ML 100 ML IV SCH (13:18)
[2024-10-08] MEDS: LASIX PO SCH (16:08)
[2024-10-09 05:49] LABS: MEAN PLATELET VOLUME 7.0 fL (7.4-11.0); RED CELL DISTRIBUTION WIDTH 18.9 % (11.6-16.5)
[2024-10-09 06:05] LABS: COR CA(FOR HYPOALB) 10.2 mg/dL (8.5-10.1); COR NA(FOR HYPERGLY) 139 mmol/L (136-145); CREATININE 0.61 mg/dL (0.70-1.30); eGFR NON BLACK RACES > 60 (>60)
[2024-10-09 06:21] VITALS: O2SAT 96
[2024-10-09] MEDS ORDERED: CONSULT PHARMACY - POTASSIUM & MAGNESIUM XX SCH (07:00)
[2024-10-09] MEDS: MAG-OX TAB PO SCH (08:30)
[2024-10-09 08:37] VITALS: BP 99/57; PULSE 98; RESP 19; TEMP 98
== END 2024-10-09 09:59 | disposition swing bed (61) | DRG 291 ==
LOC: ER 20:46 → MED/SURG 23:14
PROVIDERS: ADMIT Internal Medicine; ATTEND Internal Medicine
DX: E11.65 Type 2 diabetes mellitus with hyperglycemia; J90 Pleural effusion, not elsewhere classified; R53.1 Weakness; J18.8 Other pneumonia, unspecified organism; Z92.21 Personal history of antineoplastic chemotherapy; K21.9 Gastro-esophageal reflux disease without esophagitis; E78.5 Hyperlipidemia, unspecified; Z99.81 Dependence on supplemental oxygen; R79.1 Abnormal coagulation profile; I25.10 Atherosclerotic heart disease of native coronary artery without angina pectoris; R94.31 Abnormal electrocardiogram [ECG] [EKG]; R06.02 Shortness of breath; Z95.5 Presence of coronary angioplasty implant and graft; R26.89 Other abnormalities of gait and mobility; B96.89 Other specified bacterial agents as the cause of diseases classified elsewhere; I50.89 Other heart failure; E83.42 Hypomagnesemia; D64.89 Other specified anemias; I11.0 Hypertensive heart disease with heart failure; Z16.19 Resistance to other specified beta lactam antibiotics; C34.90 Malignant neoplasm of unspecified part of unspecified bronchus or lung; I48.91 Unspecified atrial fibrillation; Z58.89 Other problems related to physical environment; R00.0 Tachycardia, unspecified; I82.462 Acute embolism and thrombosis of left calf muscular vein; L89.152 Pressure ulcer of sacral region, stage 2; Z79.4 Long term (current) use of insulin; E03.8 Other specified hypothyroidism; E87.1 Hypo-osmolality and hyponatremia; Z29.89 Encounter for other specified prophylactic measures; J44.9 Chronic obstructive pulmonary disease, unspecified

== ENCOUNTER 2024-10-09 10:00 | Inpatient (IN) ==
--- NOTE | 2024-10-09 10:18 | DR.H&P ---
H&P History & Physical for Day of: H&P Date: 10/09/24 Chief Complaint Chief Complaint: generalized weakness History of Present Illness History of Present Illness: Patient is a 68-year-old male with a past medical history of CAD, CHF, COPD, anemia, diabetes, hypertension and lung cancer who was recently admitted for pneumonia, pleural effusion, anemia and weakness. He had a prolonged hospital stay due to multiple comorbidities. Physical therapy was consulted and recommended SNF placement. Patient and family agreed to do swing bed. Lab/imaging reviewed: Plan: Admit to swing bed. Continue IV antibiotics to complete 10 days. Continue p.o. doxycycline x 7 days. Continue home medications. Continue nebs and Pulmicort. Physical therapy and Occupational Therapy as tolerated. Monitor labs as needed. Past Medical History Past Medical History: Anemia, Arthritis, COPD, Diabetes, Dyslipidemia, GERD, Hypertension and Hyperthyroidism Past Surgical History Surgical History: Angioplasty/Stents, Joint Replacement and Tonsillectomy Family History Family Medical History: Diabetes Mellitus and Heart Failure Medications Home Medications: Home Medications Medication Instructions Recorded Confirmed Type clopidogrel 75 mg tablet 75 mg PO QAM 03/27/23 History famotidine 40 mg tablet 40 mg PO QAM 03/27/23 History rosuvastatin 20 mg tablet 20 mg PO QPM 03/27/23 History montelukast 10 mg tablet 10 mg PO QPM 10/24/23 History amiodarone 200 mg tablet 200 mg PO QAM 08/13/2409/29 History apixaban 5 mg tablet (Eliquis) 2.5 mg PO BID 08/13/24 09/29/24 History ferrous gluconate 324 mg (38 mg 324 mg PO QAM 08/13/24 09/29/24 History iron) tablet furosemide 20 mg tablet 20 mg PO BID 08/13/24 History hydrocodone 10 mg-acetaminophen 1 tab PO QID PRN 08/1309/29/24 History 325 mg tablet insulin aspart U-100 100 unit/mL See Rx Instructions . Route 08/13/24 09/29/24 History (3 mL) subcutaneous pen (Novolog .COMPLEX PRN diabetes mellitus FlexPen U-100 Insulin aspart) insulin glargine 100 unit/mL (3 65 unit subcut QAM 09/29/24 History mL) subcutaneous pen (Basaglar KwikPen U-100 Insulin) levothyroxine 150 mcg tablet 150 mcg PO QAM 08/13/24 0 09/29/24 History metoprolol tartrate 50 mg tablet 25 mg PO BID 08/13/24 09/29/24 History omeprazole 20 mg capsule,delayed 20 mg PO QPM 08/13/24 09/29/24 History release potassium chloride 10 mEq 10 meq PO BID 08/13/2409/29 History capsule,extended release albuterol sulfate 90 mcg/actuation 2 inh inhalation Q4 H PRN 09/29/24 09/29/24 History aerosol inhaler diphenoxylate-atropine 2.5 1 tab PO QDAY PRN 09/29/24 09/29/24 History mg-0.025 mg tablet (Lomotil) tamsulosin 0.4 mg capsule (Flomax) 0.4 mg PO QPM 09/2909/29/24 History megestrol 400 mg/10 mL (40 mg/mL) 800 mg PO DAILY 05/2209/30/24 History oral suspension Allergies Allergies Allergy/AdvReac Type Severity Reaction Status Date / Time No Known Drug Allergies Allergy Verified 09/29/24 21:30 Review of Systems Constitutional: Weakness Eyes: No Symptoms Reported ENT: No Symptoms Reported Respiratory: Cough, Shortness of Breath and SOB with Excertion Cardiovascular: Edema Gastrointestinal: No Symptoms Reported Genitourinary: No Symptoms Reported Musculoskeletal: Other (Generalized weakness) Skin: No Symptoms Reported Neurological: No Symptoms Reported Physical Exam Vital Signs: Vital Signs Blood Pressure [Left Arm] 99/57 Oriented: Normal Respiratory: Diminished Throughout Cardiovascular: Normal and Edema Auscultation: Bowel Sounds: Normal Tenderness: Normal Skin: Decreased Turgur Musculoskeletal: Normal Psychiatric: Normal Mood Description: Calm Affect: Normal Speech Pattern: Clear and Appropriate Assessment/Plan (1) Generalized weakness: Status: Acute (2) Pneumonia: Qualifiers: Pneumonia type: due to unspecified organism Laterality: bilateral Lung location: unspecified part of lung Qualified Code(s): J18.9 - Pneumonia, unspecified organism Status: Acute (3) Lung cancer: Qualifiers: Laterality: unspecified laterality Lung location: unspecified part of l angelo Qualified Code(s): C34.90 - Malignant neoplasm of unspecified part of unspecified bronchus or lung Status: Chronic (4) CAD (coronary artery disease): Status: Chronic (5) Acute on chronic right heart failure: Status: Acute (6) DVT (deep venous thrombosis): Qualifiers: Affected thrombotic vein of extremity: calf muscle vein Chronicity: acute DVT location: lower extremity Laterality: left Qualified Code(s): I82.462 - Acute embolism and thrombosis of left calf muscular vein Status: Chronic Review H&P Reviewed: Yes Patient was examined?: Yes
[2024-10-09] MEDS ORDERED: NS 500 ML IV 500 ML IV PRN (11:08)
[2024-10-09] MEDS ORDERED: BUTT CREAM (COMPOUND) TOP PRN (11:08)
[2024-10-09] MEDS ORDERED: VENTOLIN or PROAIR HFA IN PRN (11:08)
[2024-10-09] MEDS ORDERED: TYLENOL 325 MG TAB PO PRN (11:08)
[2024-10-09] MEDS: PROVENTIL NEB TX 0.083% 2.5MG/ 3ML NEB SCH (13:21)
--- NOTE | 2024-10-09 15:39 | PT/OTEVAL ---
PT/OT OBJECTIVES - HISTORY Prescription: PT Consult Diagnosis: Deconditioning s/p Pneumonia Precautions: Fall Risk, Cancer- Reverse Isolation, O2 PMH: Anemia, Arthritis, COPD, Diabetes, Dyslipidemia, GERD, HTN, Hyperthyoridism, Lung Cancer, Angioplasty/Stents, Joint Replacement, Tonsillectomy and Other Other: Per patient report- pt resides with in single story home with 5 steps to enter and BHR. PLOF: Independent with rollator within home requiring 3LO2 at all times but pt was requiring assistance for from ADLs/IADLs from family. History of Present Illness: Pt is a 68 year old male who was initially admitted to [facility] on 09/29/2024 due to gradual worsening shortness of breath and weakness complicated by history of lung cancer. Pt was undergoing chemo treatment and did have a fall at home prior resulting in rib fracture. Pt was transported to [facility] where he was subsequently admitted and diagnosed with pnemonia. Pt with significant weakness and inability to safely return home and was transferred to swing bed program on 10/09/2024. - COGNITION Mental Status: Alert, Oriented, Name, Date, Place, Purpose Communication Status: Verbal, Hard of Hearing Affect: Calm - PAIN Sacrum Pain Scale: Moderate B Heels Pain Scale: Mild Comments: L > R - BED MOBILITY Rolling: Supervision - TRANSFERS Supine to Sit: Supervision Sit to Stand: Minimal Sit or Stand Pivot: Minimal Safety (requires cues for:): Hand Placement Precaution - BALANCE Dynamic Sitting: Good Standing: Poor Static Sitting: Good Standing: Fair Balance Comment: Fair- - NEUROMOTOR/SENSATION Syed. Lower Ext Sensation: WFL Coordination: WFL Proprioception: WFL - ROM Bilateral LE ROM: WFL Muscle Tone: WFL - STRENGTH Bilateral LE Strength Number: 3 Other comment: 3+/5 - GAIT Pt. ambulates how many feet?: 15 Amount of Assistance Required: Minimal Type of Assistive Device: Rolling Walker Comments: Rollator - TREATMENT Date: 10/09/24 Time: 14:00 Treatment Type: Evaluation Treatment Provided: Gait, Therapeutic Activities, Therapeutic Excersises - TOTAL TREATMENT TIME Total Time: 60 - POST ASSESSMENT Post Assessment Comment: Pt was found in bed in room and agreeable to participation in PT services. Pt reports pain to sacral area and B heels (L > R) in areas where he has pressure spots. Pt on 3LO2 via nasal cannula throughout. Pt was able to perform functional transfers from various surfaces within room with min assist. Pt ambulated with rollator and min assist for 15ft before fatigue- cues for upright posture, walker approximation and proper foor placement. Pt then sat in recliner chair- instructed in and completed the following exercises to promote increased strength including: B Marches, B LAQs, B Isometric Hip Adduction against Pillow, B Hip Abduction against Level 4 Theraband, Hamstring Curls against Level2 Theraband and B Ankle PF (1 x 10 of each) with prolonged therapuetic rest breaks throughout and min cues for technique. Pt education on PT POC and goals for swing bed. Pt would benefit from continued participation in PT services to address remaining deficits and facilitate highest level of function and safe discharge planning. - EXIT DISPOSITION Exit Position: CHAIR Call light in reach: Yes Comments: All needs met. PT/OT ASSESSMENT - PT Problem List: Decreased Bed Mobility, Decreased Transfers, Decreased Gait, Decreased Balance, Decreased Safety, Decreased LE Strength - PT GOALS Short Term Goals Days: 10 Mobility: Pt will perform bed mobility tasks with mod I Transfers: Pt will perform functional transfers with supervision Gait: Pt will ambulate 100ft with rollator with touch assist Balance: Pt will increase static standing balance to good Central Office Repairer Goals Days: 20 Transfers: Pt will perform functional transfers with mod I Gait: Pt will ambulate 200ft with rollator with mod I Balance: Pt will increase dynamic standing balance to fair+/good- ROM/Strength: Pt will increase BLE strength to 5/5 Others: Pt will ascend/descend 5 stairs with HR and supervision - PATIENT GOALS Patient/Family Goals: "I want to get stronger and go home" Goals Discussed with Patient/Family: Yes Rehabilitation Potential: Good to meet stated goals Justification for Potential: Facilitate highest level of function and safe discharge planning If yes, explain: Medically complicated - PLAN Suggested Treatment Plan: Bed Mobility Training, Therapeutic Activity, Gait Training, Neuro Re-education, Therapeutic Ex with HEP, Patient Education, Family Education - FREQUENCY AND DURATION PT: 5x per week x 20 days Expected Continuation of Care at Discharge: Home Health
--- NOTE | 2024-10-09 16:00 | PT/OTEVAL ---
PT/OT OBJECTIVES - HISTORY Prescription: OT Consult Diagnosis: Deconditioning s/p Pneumonia Precautions: Fall Risk, Cancer- Reverse Isolation, O2 PMH: Anemia, Arthritis, COPD, Diabetes, Dyslipidemia, GERD, HTN, Hyperthyoridism, Lung Cancer, Angioplasty/Stents, Joint Replacement, Tonsillectomy and Other Prior Level of Function: Assistance Required Other: Per patient report- pt lives with his in a 1 story home with 5 steps to enter and a HR on B sides. Requiring 3LO2 at all times. pt was requiring assistance for from ADLs/IADLs from family. History of Present Illness: Pt is a 68 year old male who was initially admitted to [facility] on 09/29/2024 due to gradual worsening shortness of breath and weakness complicated by history of lung cancer. Pt was undergoing chemo treatment and did have a fall at home prior resulting in rib fracture. Pt was transported to [facility] where he was subsequently admitted and diagnosed with pnemonia. Pt with significant weakness and inability to safely return home and was transferred to swing bed program on 10/09/2024. - COGNITION Mental Status: Alert, Oriented, Name, Date, Place, Purpose Communication Status: Verbal Affect: Calm - PAIN No signs of pain Pain Scale: No Pain Sacrum Pain Scale: Moderate Lower Lung Pain Scale: No Pain Comments: No pain stated at time of tx B Heels Pain Scale: Mild Comments: L > R - BED MOBILITY Rolling: Supervision - TRANSFERS Supine to Sit: Supervision Sit to Stand: Minimal Sit or Stand Pivot: Minimal Toileting: Minimal Safety (requires cues for:): Hand Placement Precaution - ADL'S Upper Body ADL: Minimum Lower Body ADL: Maximum Toileting: Minimum Bathing: Moderate - BALANCE Dynamic Sitting: Good Standing: Poor Static Sitting: Good Standing: Fair Balance Comment: Fair- - NEUROMOTOR/SENSATION Syed. Lower Ext Sensation: WFL Coordination: WFL Proprioception: WFL Left Upper Ext Sensation: WFL Coordination: WFL - ROM Bilateral UE ROM: WFL - STRENGTH Bilateral LE Strength Number: 3 Other comment: 3+/5 Bilateral UE Strength Number: 3 Other comment: 3+/5 - GAIT Pt. ambulates how many feet?: 15 Amount of assistance required: Minimal Type of Assistive Device: Rollator - TREATMENT Date: 10/09/24 Time: 14:00 Treatment Type: Evaluation Treatment Provided: Therapeutic Activities, Therapeutic Excersises - TOTAL TREATMENT TIME Total Time: 60 - POST ASSESSMENT Post Assessment Comment: Pt was seen for skilled OT to assess CLOF. Pt was agreeable to participate and able to provide PLOF and hx. Pt supine to sit with supv A. STS with rollator and min A. Pt declined to dress this date, however stated that he is willing to shower this week. Pt functionally AMB ~ 15 feet before fatiguing and needing to sit. Pt sat in recliner and performed 10 reps x2 BUE exe using a level 1 resistance band. Pt gien RBs after each set. Pt given TC and VC for execution of ROM. Pt had all needs met and call light within reach. Pt demonstrates deficits with ADLs and ADL functional mobility. Pt would benefit from skilled OT services to address ADL deficits to facilitate highest level of ADL function needed for safe d/c planning. - EXIT DISPOSITION Exit Position: CHAIR Call light in reach: Yes PT/OT ASSESSMENT - OT Problem List: Decreased Mobility ADL's, Decreased Dressing, Decreased Bathing, Decreased Grooming, Decreased UE Strength - PT GOALS Short Term Goals Days: 10 Mobility: Pt will perform bed mobility tasks with mod I Transfers: Pt will perform functional transfers with supervision Gait: Pt will ambulate 100ft with rollator with touch assist Balance: Pt will increase static standing balance to good Group Home Goals Days: 20 Transfers: Pt will perform functional transfers with mod I Gait: Pt will ambulate 200ft with rollator with mod I Balance: Pt will increase dynamic standing balance to fair+/good- ROM/Strength: Pt will increase BLE strength to 5/5 Others: Pt will ascend/descend 5 stairs with HR and supervision - OT GOALS Outcomes Analyst Goals Days: 20 Mobility for ADL's: Pt to improve functional ADL transfers with mod (I) Dressing: Pt to improve LB dressing to min A Bathing: Pt to improve overall bathing to supv A Upper Ext. Strength/Use: Pt to improve MMT in BUE by 2 grades Other: Pt to improve FAT to F+ Short Term Goals Days: 10 Mobility for ADL's: Pt to improve functional ADL transfers with supv A and LRAD Dressing: Pt to improve UB dressing to supv A Bathing: Pt to improve overall bathing to min A Upper Ext. Strength/Use: Pt to improve MMT in BUE by 1 grade Other: Pt to improve FAT to F - PATIENT GOALS Patient/Family Goals: I want to get stronger so i can go home Goals Discussed with Patient/Family: Yes Rehabilitation Potential: Good to meet stated goals Justification for Potential: To facilitate highest level of ADL function needed for safe d/c planning If yes, explain: Medically complicated - PLAN Suggested Treatment Plan: Therapeutic Activity, Self Care Training, Neuro Re- education, Therapeutic Ex with HEP, Patient Education, Family Education - FREQUENCY AND DURATION OT: 5x a week x 20 days Expected Continuation of Care at Discharge: Home Health
[2024-10-09] MEDS: LASIX PO SCH (16:30)
[2024-10-09] MEDS: NORCO 10/325 TAB PO PRN (17:38)
[2024-10-09] MEDS: ELIQUIS PO SCH (20:25)
[2024-10-09] MEDS: SNACK - Diabetic Appropriate PO SCH (20:25)
[2024-10-09] MEDS: COLACE CAP 100 MG PO SCH (20:25)
[2024-10-09] MEDS: MAXIPIME VIAL 1 GRAM 1 G in NS 50 ML IV 50 ML IV SCH (20:25)
[2024-10-09] MEDS: FLOMAX PO SCH (20:26)
[2024-10-09] MEDS: CRESTOR TAB 10 MG PO SCH (20:26)
[2024-10-09] MEDS: VIBRAMYCIN PO SCH (20:26)
[2024-10-09] MEDS: HEMOCYTE PLUS PO SCH (20:27)
[2024-10-09] MEDS: PULMICORT NEB TX 0.5 MG NEB SCH (20:28)
[2024-10-10 05:51] LABS: MEAN PLATELET VOLUME 7.2 fL (7.4-11.0); RED CELL DISTRIBUTION WIDTH 19.2 % (11.6-16.5)
[2024-10-10 06:06] LABS: COR CA(FOR HYPOALB) 10.4 mg/dL (8.5-10.1); COR NA(FOR HYPERGLY) 138 mmol/L (136-145); CREATININE 0.66 mg/dL (0.70-1.30); eGFR NON BLACK RACES > 60 (>60)
[2024-10-10] MEDS: MEGACE ORAL SUSP 400 MG/10 ML PO SCH (08:46)
[2024-10-10] MEDS: MIRALAX POWDER (1 DOSE 17 G) PO SCH (08:46)
[2024-10-10] MEDS: PLAVIX PO SCH (08:47)
[2024-10-10] MEDS: CORDARONE TAB 200 MG PO SCH (08:47)
[2024-10-10] MEDS: TOPROL XL PO SCH (08:48)
[2024-10-10] MEDS: LINZESS PO SCH (08:48)
[2024-10-10] MEDS: KLOR-CON 10 MEQ TAB PO SCH (08:48)
[2024-10-10] MEDS: LANTUS SC SCH (08:49)
[2024-10-10] MEDS: ALBUMIN HUMAN 25%- 100 ML 100 ML IV SCH (09:56)
[2024-10-11] MEDS: LANTUS SC SCH (09:25)
--- NOTE | 2024-10-11 11:16 | PCM.PROG ---
Progress Note Progress Note for Day of Date of Exam: 10/11/24 Subjective Subjective: Patient is a 68-year-old male with a past medical history of CAD, CHF, COPD, anemia, diabetes, hypertension and lung cancer admitted for pneumonia, pleural effusion, anemia and weakness. He had a prolonged hospital stay due to multiple comorbidities. Physical therapy was consulted and recommended SNF placement. Patient and family agreed to do swing bed. This morning patient is resting in bed. He does continue to cough up sputum. Otherwise he reports feeling better. Lab/imaging reviewed: Plan: Continue swing bed. Continue IV antibiotics to complete 10 days. Continue p.o. doxycycline x 7 days. Continue home medications. Continue nebs and Pulmicort. Physical therapy and Occupational Therapy as tolerated. Monitor labs as needed. Past Medical Family Social History Allergies: Allergies No Known Drug Allergies Allergy (Verified 09/29/24 21:30) Review of Systems ROS changes noted: see HPI Vital Signs and I&O's Vital Signs: Vital Signs Temperature 98.8 F Pulse Rate [Bilateral Radial] 102 Pulse Rate 102 Pulse Rate 94 Respiratory Rate 18 Blood Pressure [Left Arm] 126/67 O2 Sat by Pulse Oximetry 91 O2 Sat by Pulse Oximetry 94 O2 Sat by Pulse Oximetry 95 Intake and Output: Intake & Output 10/08/24 10/09/24 10/10/24 10/11/24 23:59 23:59 23:59 23:59 Intake Total 400 / 400 580 / 580 500 / 500 Output Total 450 / 450 1450 / 1450 200 / 200 Balance -50 / -50 -870 / -870 300 / 300 Physical Exam Oriented: Normal Respiratory: Diminished Cardiovascular: Normal and Edema Auscultation: Bowel Sounds: Normal Tenderness: Normal Skin: Decreased Turgur Musculoskeletal: Normal Psychiatric: Normal Mood Description: Calm Affect: Normal Speech Pattern: Clear and Appropriate Laboratory and Diagnostics 10/10/24 05:39 10/10/24 05:39 Labs: Laboratory WBC 11.1 X10^3/uL (3.6-10.0) H 10/10/24 05:39 RBC 3.46 X10^6/uL (4.7-6.0) L 10/10/24 05:39 Hgb 9.5 g/dL (13.5-18.0) L 10/10/24 05:39 Hct 29.3 % (42.0-54.0) L 10/10/24 05:39 MCV 84.5 fL (80.0-100.0) 10/10/24 05:39 MCH 27.3 pg (27.0-34.0) 10/10/24 05:39 MCHC 32.3 g/dL (33.0-35.0) L 10/10/24 05:39 RDW 19.2 % (11.6-16.5) H 10/10/24 05:39 Plt Count 497 X10^3/uL (150.0-450.0) H 10/10/24 05:39 MPV 7.2 fL (7.4-11.0) L 10/10/24 05:39 Neut % (Auto) 80.3 % (42.0-75.0) H 10/10/24 05:39 Lymph % (Auto) 13.5 % (21.0-51.0) L 10/10/24 05:39 Dougherty % (Auto) 4.0 % (0.0-13.0) 10/10/24 05:39 Eos % (Auto) 1.7 % (0.9-2.9) 10/10/24 05:39 Baso % (Auto) 0.5 % (0.2-1.0) 10/10/24 05:39 Neut # (Auto) 8.9 x10^3/uL (2.2-4.8) H 10/10/24 05:39 Lymph # (Auto) 1.5 X10^3/uL (1.3-2.9) 10/10/24 05:39 Dougherty # (Auto) 0.4 x10^3/uL (0.3-0.8) 10/10/24 05:39 Eos # (Auto) 0.2 x10^3/uL (0.0-0.2) 10/10/24 05:39 Baso # (Auto) 0.1 X10^3/uL (0.0-0.1) 10/10/24 05:39 Absolute Nucleated RBC 0.0 /100WBC 10/10/24 05:39 Sodium 136 mmol/L (136-145) 10/10/24 05:39 Corrected Sodium 138 mmol/L (136-145) 10/10/24 05:39 Potassium 4.7 mmol/L (3.5-5.1) 10/10/24 05:39 Chloride 101 mmol/L (98-107) 10/10/24 05:39 Carbon Dioxide 30.6 mmol/L (21-32) 10/10/24 05:39 BUN 13 mg/dL (7-18) 10/10/24 05:39 Creatinine 0.66 mg/dL (0.70-1.30) L 10/10/24 05:39 Est GFR (MDRD) Af Amer > 60 (>60) 10/10/24 05:39 Est GFR (MDRD) Non-Af > 60 (>60) 10/10/24 05:39 Glucose 192 mg/dL (65-99) H 10/10/24 05:39 POC Glucose (mg/dL) 216 mg/dL (65-99) H 10/11/24 06:02 Calcium 9.0 mg/dL (8.5-10.1) 10/10/24 05:39 Corrected Calcium 10.4 mg/dL (8.5-10.1) H 10/10/24 05:39 Total Bilirubin 0.40 mg/dL (0.2-1.0) 10/10/24 05:39 AST 28 Units/L (15-37) 10/10/24 05:39 ALT 41 Units/L (12-78) 10/10/24 05:39 Alkaline Phosphatase 157 Units/L (46-116) H 10/10/24 05:39 Total Protein 7.7 g/dL (6.4-8.2) 10/10/24 05:39 Albumin 2.3 g/dL (3.4-5.0) L 10/10/24 05:39 Globulin 5.4 g/dL (2.5-4.5) H 10/10/24 05:39 Albumin/Globulin Ratio 0.4 Ratio (1.1-2.1) L 10/10/24 05:39 Plan (1) Generalized weakness: Status: Acute (2) Pneumonia: Status: Acute Qualifiers: Pneumonia type: due to unspecified organism Laterality: bilateral Lung location: unspecified part of lung Qualified Code(s): J18.9 - Pneumonia, unspecified organism (3) Lung cancer: Status: Chronic Qualifiers: Laterality: unspecified laterality Lung location: unspecified part of lung Qualified Code(s): C34.90 - Malignant neoplasm of unspecified part of unspecified bronchus or lung (4) CAD (coronary artery disease): Status: Chronic (5) Acute on chronic right heart failure: Status: Acute (6) DVT (deep venous thrombosis): Status: Chronic Qualifiers: Affected thrombotic vein of extremity: calf muscle vein Chronicity: a cute DVT location: lower extremity Laterality: left Qualified Code(s): I 82.462 - Acute embolism and thrombosis of left calf muscular vein
[2024-10-11] MEDS: ISOPTO ATROPINE SL PRN (12:00)
[2024-10-12 05:52] LABS: MEAN PLATELET VOLUME 6.9 fL (7.4-11.0); RED CELL DISTRIBUTION WIDTH 19.6 % (11.6-16.5)
[2024-10-12 06:06] LABS: COR CA(FOR HYPOALB) 10.3 mg/dL (8.5-10.1); COR NA(FOR HYPERGLY) 138 mmol/L (136-145); CREATININE 0.59 mg/dL (0.70-1.30); eGFR NON BLACK RACES > 60 (>60)
[2024-10-13 15:31] VITALS: BMI 26.2
[2024-10-15 06:11] LABS: MEAN PLATELET VOLUME 7.0 fL (7.4-11.0); RED CELL DISTRIBUTION WIDTH 19.7 % (11.6-16.5)
[2024-10-15 06:15] LABS: COR CA(FOR HYPOALB) 10.2 mg/dL (8.5-10.1); COR NA(FOR HYPERGLY) 135 mmol/L (136-145); CREATININE 0.51 mg/dL (0.70-1.30); eGFR NON BLACK RACES > 60 (>60)
[2024-10-15] MEDS: XOPENEX 1.25 MG/3 ML NEBULE NEB SCH (09:41)
--- NOTE | 2024-10-15 11:07 | PCM.PROG ---
Progress Note Progress Note for Day of Date of Exam: 10/15/24 Subjective Subjective: Patient seen at bedside, no acute events overnight. He is feeling better. He has been working with therapy. He seems to be improving each day. His appetite is slowly getting better. He is currently admitted as swing bed due to generalized weakness and deconditioning. He states he does feel short of breath at times especially when working with therapy. He remains on 3 L oxygen. Labs/imaging reviewed: - WBC 11.9 hemoglobin 9.2 potassium 4.1 creatinine 0.51 Plan: Continue swing bed. Continue home medications. Replace electrolytes as per protocol. CM and physical therapy to discuss with family regarding discharge planning. Continue current treatment. Past Medical Family Social History Allergies: Allergies No Known Drug Allergies Allergy (Verified 09/29/24 21:30) Vital Signs and I&O's Vital Signs: Vital Signs Pulse Rate 107 Pulse Rate 80 Respiratory Rate 20 O2 Sat by Pulse Oximetry 90 O2 Sat by Pulse Oximetry 96 Intake and Output: Intake & Output 10/12/24 10/13/24 10/14/24 10/15/24 23:59 23:59 23:59 23:59 Intake Total 1644 / 1644 870 / 870 1235 / 1235 460 / 460 Output Total 1700 / 1700 1375 / 1375 980 / 980 200 / 200 Balance -56 / -56 -505 / -505 255 / 255 260 / 260 Physical Exam Oriented: Normal Respiratory: Diminished Cardiovascular: Normal and Edema Auscultation: Bowel Sounds: Normal Palpation: Normal Tenderness: Normal Skin: Decreased Turgur Musculoskeletal: Normal Psychiatric: Normal Mood Description: Calm Affect: Normal Speech Pattern: Clear and Appropriate Laboratory and Diagnostics 10/15/24 05:16 10/15/24 05:16 Labs: Laboratory WBC 11.9 X10^3/uL (3.6-10.0) H 10/15/24 05:16 RBC 3.44 X10^6/uL (4.7-6.0) L 10/15/24 05:16 Hgb 9.2 g/dL (13.5-18.0) L 10/15/24 05:16 Hct 28.7 % (42.0-54.0) L 10/15/24 05:16 MCV 83.5 fL (80.0-100.0) 10/15/24 05:16 MCH 26.7 pg (27.0-34.0) L 10/15/24 05:16 MCHC 31.9 g/dL (33.0-35.0) L 10/15/24 05:16 RDW 19.7 % (11.6-16.5) H 10/15/24 05:16 Plt Count 489 X10^3/uL (150.0-450.0) H 10/15/24 05:16 MPV 7.0 fL (7.4-11.0) L 10/15/24 05:16 Neut % (Auto) 82.1 % (42.0-75.0) H 10/15/24 05:16 Lymph % (Auto) 9.1 % (21.0-51.0) L 10/15/24 05:16 Newton % (Auto) 5.8 % (0.0-13.0) 10/15/24 05:16 Eos % (Auto) 2.6 % (0.9-2.9) 10/15/24 05:16 Baso % (Auto) 0.4 % (0.2-1.0) 10/15/24 05:16 Neut # (Auto) 9.8 x10^3/uL (2.2-4.8) H 10/15/24 05:16 Lymph # (Auto) 1.1 X10^3/uL (1.3-2.9) L 10/15/24 05:16 Newton # (Auto) 0.7 x10^3/uL (0.3-0.8) 10/15/24 05:16 Eos # (Auto) 0.3 x10^3/uL (0.0-0.2) H 10/15/24 05:16 Baso # (Auto) 0.1 X10^3/uL (0.0-0.1) 10/15/24 05:16 Absolute Nucleated RBC 0.1 /100WBC 10/15/24 05:16 Sodium 134 mmol/L (136-145) L 10/15/24 05:16 Corrected Sodium 135 mmol/L (136-145) L 10/15/24 05:16 Potassium 4.1 mmol/L (3.5-5.1) 10/15/24 05:16 Chloride 100 mmol/L (98-107) 10/15/24 05:16 Carbon Dioxide 27.5 mmol/L (21-32) 10/15/24 05:16 BUN 18 mg/dL (7-18) 10/15/24 05:16 Creatinine 0.51 mg/dL (0.70-1.30) L 10/15/24 05:16 Est GFR (MDRD) Af Amer > 60 (>60) 10/15/24 05:16 Est GFR (MDRD) Non-Af > 60 (>60) 10/15/24 05:16 Glucose 136 mg/dL (65-99) H 10/15/24 05:16 POC Glucose (mg/dL) 136 mg/dL (65-99) H 10/15/24 05:34 Calcium 9.4 mg/dL (8.5-10.1) 10/15/24 05:16 Corrected Calcium 10.2 mg/dL (8.5-10.1) H 10/15/24 05:16 Total Bilirubin 0.60 mg/dL (0.2-1.0) 10/15/24 05:16 AST 32 Units/L (15-37) 10/15/24 05:16 ALT 53 Units/L (12-78) 10/15/24 05:16 Alkaline Phosphatase 127 Units/L (46-116) H 10/15/24 05:16 Total Protein 8.1 g/dL (6.4-8.2) 10/15/24 05:16 Albumin 3.0 g/dL (3.4-5.0) L 10/15/24 05:16 Globulin 5.1 g/dL (2.5-4.5) H 10/15/24 05:16 Albumin/Globulin Ratio 0.6 Ratio (1.1-2.1) L 10/15/24 05:16 Plan (1) Generalized weakness: Status: Acute (2) Pneumonia: Status: Acute Qualifiers: Pneumonia type: due to unspecified organism Laterality: bilateral Lung location: unspecified part of lung Qualified Code(s): J18.9 - Pneumonia, unspecified organism (3) Lung cancer: Status: Chronic Qualifiers: Laterality: unspecified laterality Lung location: unspecified part of lung Qualified Code(s): C34.90 - Malignant neoplasm of unspecified part of unspecified bronchus or lung (4) CAD (coronary artery disease): Status: Chronic (5) Acute on chronic right heart failure: Status: Acute (6) DVT (deep venous thrombosis): Status: Chronic Qualifiers: Affected thrombotic vein of extremity: calf muscle vein Chronicity: a cute DVT location: lower extremity Laterality: left Qualified Code(s): I 82.462 - Acute embolism and thrombosis of left calf muscular vein
[2024-10-17 08:49] LABS: MEAN PLATELET VOLUME 6.7 fL (7.4-11.0); RED CELL DISTRIBUTION WIDTH 19.4 % (11.6-16.5)
[2024-10-17 08:58] LABS: COR CA(FOR HYPOALB) 10.1 mg/dL (8.5-10.1); COR NA(FOR HYPERGLY) 141 mmol/L (136-145); CREATININE 0.69 mg/dL (0.70-1.30); eGFR NON BLACK RACES > 60 (>60)
--- NOTE | 2024-10-17 09:45 | PCM.PROG ---
Progress Note Progress Note for Day of Date of Exam: 10/17/24 Subjective Subjective: Patient seen at bedside, no acute events overnight. He continues to get better each day, working with physical and Occupational Therapy. He was able to ambulate in the hallway yesterday. He states he does feel short of breath at times with exertion. He has been on 3 L nasal cannula. His appetite is slowly getting better. Labs/imaging reviewed: - Hemoglobin 9.7 WBC 11.9 sodium 139 potassium 4.2 creatinine 0.69 Plan: Continue swing bed. Continue therapy as tolerated. Continue home medications. Replace electrolytes as per protocol. Monitor labs as needed. Past Medical Family Social History Allergies: Allergies No Known Drug Allergies Allergy (Verified 09/29/24 21:30) Vital Signs and I&O's Vital Signs: Vital Signs Pulse Rate 109 Pulse Rate 96 O2 Sat by Pulse Oximetry 98 O2 Sat by Pulse Oximetry 93 Intake and Output: Intake & Output 10/14/24 10/15/24 10/16/24 10/17/24 23:59 23:59 23:59 23:59 Intake Total 1235 / 1235 1260 / 1260 1090 / 1090 100 / 100 Output Total 980 / 980 1060 / 1060 1510 / 1510 200 / 200 Balance 255 / 255 200 / 200 -420 / -420 -100 / -100 Physical Exam Oriented: Normal Respiratory: Diminished Cardiovascular: Normal and Edema Auscultation: Bowel Sounds: Normal Tenderness: Normal Skin: Decreased Turgur Musculoskeletal: Normal Psychiatric: Normal Mood Description: Calm Affect: Normal Speech Pattern: Clear and Appropriate Laboratory and Diagnostics 10/17/24 08:36 10/17/24 08:36 Labs: Laboratory WBC 11.9 X10^3/uL (3.6-10.0) H 10/17/24 08:36 RBC 3.60 X10^6/uL (4.7-6.0) L 10/17/24 08:36 Hgb 9.7 g/dL (13.5-18.0) L 10/17/24 08:36 Hct 30.1 % (42.0-54.0) L 10/17/24 08:36 MCV 83.7 fL (80.0-100.0) 10/17/24 08:36 MCH 26.9 pg (27.0-34.0) L 10/17/24 08:36 MCHC 32.2 g/dL (33.0-35.0) L 10/17/24 08:36 RDW 19.4 % (11.6-16.5) H 10/17/24 08:36 Plt Count 486 X10^3/uL (150.0-450.0) H 10/17/24 08:36 MPV 6.7 fL (7.4-11.0) L 10/17/24 08:36 Neut % (Auto) 80.1 % (42.0-75.0) H 10/17/24 08:36 Lymph % (Auto) 11.6 % (21.0-51.0) L 10/17/24 08:36 [place] % (Auto) 4.0 % (0.0-13.0) 10/17/24 08:36 Eos % (Auto) 2.8 % (0.9-2.9) 10/17/24 08:36 Baso % (Auto) 1.5 % (0.2-1.0) H 10/17/24 08:36 Neut # (Auto) 9.5 x10^3/uL (2.2-4.8) H 10/17/24 08:36 Lymph # (Auto) 1.4 X10^3/uL (1.3-2.9) 10/17/24 08:36 [place] # (Auto) 0.5 x10^3/uL (0.3-0.8) 10/17/24 08:36 Eos # (Auto) 0.3 x10^3/uL (0.0-0.2) H 10/17/24 08:36 Baso # (Auto) 0.2 X10^3/uL (0.0-0.1) H 10/17/24 08:36 Absolute Nucleated RBC 0.0 /100WBC 10/17/24 08:36 Sodium 139 mmol/L (136-145) 10/17/24 08:36 Corrected Sodium 141 mmol/L (136-145) 10/17/24 08:36 Potassium 4.2 mmol/L (3.5-5.1) 10/17/24 08:36 Chloride 102 mmol/L (98-107) 10/17/24 08:36 Carbon Dioxide 28.8 mmol/L (21-32) 10/17/24 08:36 BUN 16 mg/dL (7-18) 10/17/24 08:36 Creatinine 0.69 mg/dL (0.70-1.30) L 10/17/24 08:36 Est GFR (MDRD) Af Amer > 60 (>60) 10/17/24 08:36 Est GFR (MDRD) Non-Af > 60 (>60) 10/17/24 08:36 Glucose 166 mg/dL (65-99) H 10/17/24 08:36 POC Glucose (mg/dL) 190 mg/dL (65-99) H 10/17/24 05:09 Calcium 9.5 mg/dL (8.5-10.1) 10/17/24 08:36 Corrected Calcium 10.1 mg/dL (8.5-10.1) 10/17/24 08:36 Total Bilirubin 0.50 mg/dL (0.2-1.0) 10/17/24 08:36 AST 32 Units/L (15-37) 10/17/24 08:36 ALT 70 Units/L (12-78) 10/17/24 08:36 Alkaline Phosphatase 141 Units/L (46-116) H 10/17/24 08:36 Total Protein 8.6 g/dL (6.4-8.2) H 10/17/24 08:36 Albumin 3.3 g/dL (3.4-5.0) L 10/17/24 08:36 Globulin 5.3 g/dL (2.5-4.5) H 10/17/24 08:36 Albumin/Globulin Ratio 0.6 Ratio (1.1-2.1) L 10/17/24 08:36 Plan (1) Generalized weakness: Status: Acute (2) Pneumonia: Status: Acute Qualifiers: Pneumonia type: due to unspecified organism Laterality: bilateral Lung location: unspecified part of lung Qualified Code(s): J18.9 - Pneumonia, unspecified organism (3) Lung cancer: Status: Chronic Qualifiers: Laterality: unspecified laterality Lung location: unspecified part of lung Qualified Code(s): C34.90 - Malignant neoplasm of unspecified part of unspecified bronchus or lung (4) CAD (coronary artery disease): Status: Chronic (5) Acute on chronic right heart failure: Status: Acute (6) DVT (deep venous thrombosis): Status: Chronic Qualifiers: Affected thrombotic vein of extremity: calf muscle vein Chronicity: a cute DVT location: lower extremity Laterality: left Qualified Code(s): I 82.462 - Acute embolism and thrombosis of left calf muscular vein
[2024-10-17] MEDS ORDERED: TYLENOL 325 MG TAB PO PRN (20:35)
[2024-10-17] MEDS: ROBITUSSIN DM PO PRN (21:21)
[2024-10-18] MEDS ORDERED: TYLENOL 325 MG TAB PO PRN (11:06)
[2024-10-18] MEDS: MAALOX or MYLANTA PO PRN (11:26)
[2024-10-18] MEDS: MORPHINE SULFATE INJ 2 MG INJ IVP PRN (22:26)
[2024-10-19 06:48] LABS: MEAN PLATELET VOLUME 7.0 fL (7.4-11.0); RED CELL DISTRIBUTION WIDTH 19.1 % (11.6-16.5)
[2024-10-19 07:03] LABS: COR CA(FOR HYPOALB) 9.8 mg/dL (8.5-10.1); COR NA(FOR HYPERGLY) 140 mmol/L (136-145); CREATININE 0.56 mg/dL (0.70-1.30); eGFR NON BLACK RACES > 60 (>60)
[2024-10-19] MEDS: ZOFRAN INJ 4 MG VIAL IVP PRN (08:08)
--- NOTE | 2024-10-19 08:10 | EKG ---
Test Reason : chest pain Blood Pressure : */* mmHG Vent. Rate : 107 BPM Atrial Rate : 107 BPM P-R Int : 164 ms QRS Dur : 110 ms QT Int : 356 ms P-R-T Axes : 87 11 125 degrees QTc Int : 475 ms Sinus tachycardia Nonspecific ST and T wave abnormality Abnormal ECG When compared with ECG of 01-OCT-2024 11:09, Nonspecific T wave abnormality now evident in Inferior leads Confirmed by Mannie Wallace MD ([id number]) on 10/19/2024 12:54:10 PM Referred By: Confirmed By: Mannie Wallace MD
--- NOTE | 2024-10-19 18:12 | PCM.PROG ---
Progress Note Progress Note for Day of Date of Exam: 10/19/24 Subjective Subjective: Patient seen at bedside, no acute events overnight. However this morning he does report feeling like the muscles in his chest upper region feels tight. He also has some nausea. We did order a EKG and a troponin that was negative for acute TN. Chest x-ray is pending. He reports no change in his chronic dyspnea. Denies any radiation of pain or diaphoresis. Vitals have remained stable. He has been on 3 L nasal cannula. Will follow-up chest x-ray and continue to monitor. Labs/imaging reviewed: - Wbc 9.6, Hgb 9.5, platelets 434, sodium 137, potassium 3.9, creatinine 0.56, glucose 208 Plan: Continue swing bed. Continue therapy as tolerated. Continue home medications. Replace electrolytes as per protocol. Monitor labs as needed. Past Medical Family Social History Allergies: Allergies No Known Drug Allergies Allergy (Verified 09/29/24 21:30) Review of Systems ROS changes noted: see HPI Vital Signs and I&O's Vital Signs: Vital Signs Respiratory Rate 20 Respiratory Rate 16 Intake and Output: Intake & Output 10/16/24 10/17/24 10/18/24 10/19/24 23:59 23:59 23:59 23:59 Intake Total 1090 / 1090 420 / 420 390 / 390 119 / 119 Output Total 1510 / 1510 550 / 550 1950 / 1950 0 / 0 Balance -420 / -420 -130 / -130 -1560 / -1560 119 / 119 Physical Exam Oriented: Normal Respiratory: Diminished Cardiovascular: Normal and Edema Auscultation: Bowel Sounds: Normal Tenderness: Normal Skin: Decreased Turgur Musculoskeletal: Normal Psychiatric: Normal Mood Description: Calm Affect: Normal Speech Pattern: Clear and Appropriate Laboratory and Diagnostics 10/19/24 05:30 10/19/24 05:30 Labs: Laboratory WBC 9.6 X10^3/uL (3.6-10.0) 10/19/24 05:30 RBC 3.51 X10^6/uL (4.7-6.0) L 10/19/24 05:30 Hgb 9.5 g/dL (13.5-18.0) L 10/19/24 05:30 Hct 29.1 % (42.0-54.0) L 10/19/24 05:30 MCV 82.9 fL (80.0-100.0) 10/19/24 05:30 MCH 27.1 pg (27.0-34.0) 10/19/24 05:30 MCHC 32.7 g/dL (33.0-35.0) L 10/19/24 05:30 RDW 19.1 % (11.6-16.5) H 10/19/24 05:30 Plt Count 434 X10^3/uL (150.0-450.0) 10/19/24 05:30 MPV 7.0 fL (7.4-11.0) L 10/19/24 05:30 Neut % (Auto) 77.3 % (42.0-75.0) H 10/19/24 05:30 Lymph % (Auto) 12.9 % (21.0-51.0) L 10/19/24 05:30 [place] % (Auto) 5.9 % (0.0-13.0) 10/19/24 05:30 Eos % (Auto) 3.5 % (0.9-2.9) H 10/19/24 05:30 Baso % (Auto) 0.4 % (0.2-1.0) 10/19/24 05:30 Neut # (Auto) 7.4 x10^3/uL (2.2-4.8) H 10/19/24 05:30 Lymph # (Auto) 1.2 X10^3/uL (1.3-2.9) L 10/19/24 05:30 [place] # (Auto) 0.6 x10^3/uL (0.3-0.8) 10/19/24 05:30 Eos # (Auto) 0.3 x10^3/uL (0.0-0.2) H 10/19/24 05:30 Baso # (Auto) 0.0 X10^3/uL (0.0-0.1) 10/19/24 05:30 Absolute Nucleated RBC 0.1 /100WBC 10/19/24 05:30 Sodium 137 mmol/L (136-145) 10/19/24 05:30 Corrected Sodium 140 mmol/L (136-145) 10/19/24 05:30 Potassium 3.9 mmol/L (3.5-5.1) 10/19/24 05:30 Chloride 102 mmol/L (98-107) 10/19/24 05:30 Carbon Dioxide 27.7 mmol/L (21-32) 10/19/24 05:30 BUN 16 mg/dL (7-18) 10/19/24 05:30 Creatinine 0.56 mg/dL (0.70-1.30) L 10/19/24 05:30 Est GFR (MDRD) Af Amer > 60 (>60) 10/19/24 05:30 Est GFR (MDRD) Non-Af > 60 (>60) 10/19/24 05:30 Glucose 208 mg/dL (65-99) H 10/19/24 05:30 POC Glucose (mg/dL) 161 mg/dL (65-99) H 10/19/24 15:35 Calcium 9.2 mg/dL (8.5-10.1) 10/19/24 05:30 Corrected Calcium 9.8 mg/dL (8.5-10.1) 10/19/24 05:30 Total Bilirubin 0.30 mg/dL (0.2-1.0) 10/19/24 05:30 AST 19 Units/L (15-37) 10/19/24 05:30 ALT 63 Units/L (12-78) 10/19/24 05:30 Alkaline Phosphatase 130 Units/L (46-116) H 10/19/24 05:30 Troponin I High Sens 7.5 ng/L (4.0-60.0) 10/19/24 15:30 Total Protein 8.1 g/dL (6.4-8.2) 10/19/24 05:30 Albumin 3.3 g/dL (3.4-5.0) L 10/19/24 05:30 Globulin 4.8 g/dL (2.5-4.5) H 10/19/24 05:30 Albumin/Globulin Ratio 0.7 Ratio (1.1-2.1) L 10/19/24 05:30 Plan (1) Generalized weakness: Status: Acute (2) Pneumonia: Status: Acute Qualifiers: Pneumonia type: due to unspecified organism Laterality: bilateral Lung location: unspecified part of lung Qualified Code(s): J18.9 - Pneumonia, unspecified organism (3) Lung cancer: Status: Chronic Qualifiers: Laterality: unspecified laterality Lung location: unspecified part of lung Qualified Code(s): C34.90 - Malignant neoplasm of unspecified part of unspecified bronchus or lung (4) CAD (coronary artery disease): Status: Chronic (5) Acute on chronic right heart failure: Status: Acute (6) DVT (deep venous thrombosis): Status: Chronic Qualifiers: Affected thrombotic vein of extremity: calf muscle vein Chronicity: a cute DVT location: lower extremity Laterality: left Qualified Code(s): I 82.462 - Acute embolism and thrombosis of left calf muscular vein
--- NOTE | 2024-10-20 07:50 | RAD ---
EXAM: AP chest HISTORY: Chest pain COMPARISON: 10/07/2024, 03/15/2024 FINDINGS: Heart size is similar. The right chest remains relatively clear. There is no change in extent or distribution of airspace disease and pleural effusion at the left base with elevated diaphragm. The left upper lobe remains unchanged. IMPRESSION: No significant change since 10/07/2024. Persistent left diaphragm elevation with left lower lobe pneumonia/atelectasis and pleural effusion. THIS IS AN ELECTRONICALLY VERIFIED FINAL REPORT 10/20/2024 7:43 AM - Electronically signed by Brown Ricks MD
[2024-10-21] MEDS: AMBIEN PO PRN (20:40)
[2024-10-22 05:50] LABS: MEAN PLATELET VOLUME 7.0 fL (7.4-11.0); RED CELL DISTRIBUTION WIDTH 19.7 % (11.6-16.5)
[2024-10-22 06:08] LABS: COR NA(FOR HYPERGLY) 141 mmol/L (136-145); CREATININE 0.62 mg/dL (0.70-1.30); eGFR NON BLACK RACES > 60 (>60)
[2024-10-22] MEDS ORDERED: CONSULT PHARMACY - POTASSIUM & MAGNESIUM XX SCH (07:00)
--- NOTE | 2024-10-22 08:09 | RAD ---
EXAM: CHEST, 1 VIEW HISTORY: fluid overload; COMPARISON: 10/20/2023 TECHNIQUE: AP portable FINDINGS: Right chest port catheter in place. Stable prominent cardiac silhouette, accentuated by AP technique. Elevated left hemidiaphragm. Small left pleural effusion with increased left basilar opacities. No visible pneumothorax. IMPRESSION: Chronic elevated left hemidiaphragm. Small left pleural effusion with increased left basilar atelectasis/infiltrates. THIS IS AN ELECTRONICALLY VERIFIED FINAL REPORT 10/22/2024 8:06 AM - Electronically signed by Ranjit Green MD
[2024-10-22] MEDS: MAG-OX TAB PO SCH (08:26)
[2024-10-22] MEDS: VIBRAMYCIN PO SCH (10:22)
--- NOTE | 2024-10-22 10:32 | PCM.PROG ---
Progress Note Progress Note for Day of Date of Exam: 10/22/24 Subjective Subjective: Patient seen at bedside, no acute events overnight. He is feeling better today. He denies having more cough than before. CXR today shows increased left-sided atelectasis. WBC slightly elevated 12.9. Patient is currently admitted to swing bed for PT/OT. Labs/imaging reviewed: - WBC 12.9 hemoglobin 9.5 potassium 3.9 magnesium 1.8 creatinine 0.62 - Chest x-ray reviewed Plan: Start doxycycline. Will repeat AIT continue nebs and Pulmicort. Patient is currently using 3 L oxygen which is similar to his home needs. Continue physical therapy as tolerated. Continue home medications. Replace electrolytes as per protocol. Monitor labs as needed. Past Medical Family Social History Allergies: Allergies No Known Drug Allergies Allergy (Verified 09/29/24 21:30) Vital Signs and I&O's Vital Signs: Vital Signs Pulse Rate 90 Pulse Rate 93 O2 Sat by Pulse Oximetry 95 O2 Sat by Pulse Oximetry 97 Intake and Output: Intake & Output 10/19/24 10/20/24 10/21/24 10/22/24 23:59 23:59 23:59 23:59 Intake Total 299 / 299 450 / 450 1123 / 1123 10 / 10 Output Total 800 / 800 810 / 810 1050 / 1050 100 / 100 Balance -501 / -501 -360 / -360 73 / 73 -90 / -90 Physical Exam Oriented: Normal Respiratory: Diminished Cardiovascular: Normal and Edema Auscultation: Bowel Sounds: Normal Palpation: Normal Tenderness: Normal Skin: Decreased Turgur Musculoskeletal: Normal Psychiatric: Normal Mood Description: Calm Affect: Normal Speech Pattern: Clear and Appropriate Laboratory and Diagnostics 10/22/24 05:21 10/22/24 05:21 Labs: Laboratory WBC 12.9 X10^3/uL (3.6-10.0) H 10/22/24 05:21 RBC 3.56 X10^6/uL (4.7-6.0) L 10/22/24 05:21 Hgb 9.5 g/dL (13.5-18.0) L 10/22/24 05:21 Hct 29.8 % (42.0-54.0) L 10/22/24 05:21 MCV 83.6 fL (80.0-100.0) 10/22/24 05:21 MCH 26.7 pg (27.0-34.0) L 10/22/24 05:21 MCHC 32.0 g/dL (33.0-35.0) L 10/22/24 05:21 RDW 19.7 % (11.6-16.5) H 10/22/24 05:21 Plt Count 377 X10^3/uL (150.0-450.0) 10/22/24 05:21 MPV 7.0 fL (7.4-11.0) L 10/22/24 05:21 Neut % (Auto) 83.7 % (42.0-75.0) H 10/22/24 05:21 Lymph % (Auto) 9.3 % (21.0-51.0) L 10/22/24 05:21 [place] % (Auto) 5.2 % (0.0-13.0) 10/22/24 05:21 Eos % (Auto) 1.6 % (0.9-2.9) 10/22/24 05:21 Baso % (Auto) 0.2 % (0.2-1.0) 10/22/24 05:21 Neut # (Auto) 10.8 x10^3/uL (2.2-4.8) H 10/22/24 05:21 Lymph # (Auto) 1.2 X10^3/uL (1.3-2.9) L 10/22/24 05:21 [place] # (Auto) 0.7 x10^3/uL (0.3-0.8) 10/22/24 05:21 Eos # (Auto) 0.2 x10^3/uL (0.0-0.2) 10/22/24 05:21 Baso # (Auto) 0.0 X10^3/uL (0.0-0.1) 10/22/24 05:21 Absolute Nucleated RBC 0.0 /100WBC 10/22/24 05:21 Sodium 140 mmol/L (136-145) 10/22/24 05:21 Corrected Sodium 141 mmol/L (136-145) 10/22/24 05:21 Potassium 3.9 mmol/L (3.5-5.1) 10/22/24 05:21 Chloride 102 mmol/L (98-107) 10/22/24 05:21 Carbon Dioxide 29.1 mmol/L (21-32) 10/22/24 05:21 BUN 19 mg/dL (7-18) H 10/22/24 05:21 Creatinine 0.62 mg/dL (0.70-1.30) L 10/22/24 05:21 Est GFR (MDRD) Af Amer > 60 (>60) 10/22/24 05:21 Est GFR (MDRD) Non-Af > 60 (>60) 10/22/24 05:21 Glucose 146 mg/dL (65-99) H 10/22/24 05:21 POC Glucose (mg/dL) 264 mg/dL (65-99) H 10/20/24 10:47 Calcium 9.2 mg/dL (8.5-10.1) 10/22/24 05:21 Corrected Calcium TNP 10/22/24 05:21 Magnesium 1.8 mg/dL (2.0-2.9) L 10/22/24 05:21 Total Bilirubin 0.70 mg/dL (0.2-1.0) 10/22/24 05:21 AST 20 Units/L (15-37) 10/22/24 05:21 ALT 36 Units/L (12-78) 10/22/24 05:21 Alkaline Phosphatase 106 Units/L (46-116) 10/22/24 05:21 Troponin I High Sens 8.2 ng/L (4.0-60.0) 10/19/24 21:09 Total Protein 8.0 g/dL (6.4-8.2) 10/22/24 05:21 Albumin 3.4 g/dL (3.4-5.0) 10/22/24 05:21 Globulin 4.6 g/dL (2.5-4.5) H 10/22/24 05:21 Albumin/Globulin Ratio 0.7 Ratio (1.1-2.1) L 10/22/24 05:21 Plan (1) Generalized weakness: Status: Acute (2) Pneumonia: Status: Acute Qualifiers: Pneumonia type: due to unspecified organism Laterality: bilateral Lung location: unspecified part of lung Qualified Code(s): J18.9 - Pneumonia, unspecified organism (3) Lung cancer: Status: Chronic Qualifiers: Laterality: unspecified laterality Lung location: unspecified part of lung Qualified Code(s): C34.90 - Malignant neoplasm of unspecified part of unspecified bronchus or lung (4) CAD (coronary artery disease): Status: Chronic (5) Acute on chronic right heart failure: Status: Acute (6) DVT (deep venous thrombosis): Status: Chronic Qualifiers: Affected thrombotic vein of extremity: calf muscle vein Chronicity: a cute DVT location: lower extremity Laterality: left Qualified Code(s): I 82.462 - Acute embolism and thrombosis of left calf muscular vein
[2024-10-22] MEDS: K-DUR TAB 20 MEQ PO SCH (10:55)
[2024-10-22] MEDS: NS 250 ML IV 250 ML IV ONE (15:48)
[2024-10-22] MEDS: ZOFRAN TAB 4 MG SL PRN (17:47)
[2024-10-23 22:01] VITALS: RESP 19
[2024-10-24 05:45] LABS: MEAN PLATELET VOLUME 6.9 fL (7.4-11.0); RED CELL DISTRIBUTION WIDTH 19.2 % (11.6-16.5)
[2024-10-24 06:07] LABS: COR CA(FOR HYPOALB) 9.9 mg/dL (8.5-10.1); COR NA(FOR HYPERGLY) 139 mmol/L (136-145); CREATININE 0.59 mg/dL (0.70-1.30); eGFR NON BLACK RACES > 60 (>60)
[2024-10-24] MEDS ORDERED: CONSULT PHARMACY - POTASSIUM & MAGNESIUM XX SCH (07:00)
[2024-10-24 08:53] VITALS: O2SAT 90
[2024-10-24] MEDS: MAG-OX TAB PO SCH (09:58)
[2024-10-24] MEDS: K-DUR TAB 20 MEQ PO SCH (10:06)
[2024-10-24 11:02] VITALS: BP 102/57; PULSE 92; TEMP 98.7
--- NOTE | 2024-10-25 11:38 | W.DIS.FURT ---
Summary of Discharge Discharge Summary of Date Date of Exam: 10/24/24 Admission Date Date of Admission: 10/09/24 Admission Diagnosis Hospital Course: Patient is a 68-year-old male with a past medical history of lung cancer, CHF, atrial fibrillation, GERD, chronic pain, hypertension and type 2 diabetes who was admitted to swing bed due to generalized weakness. He was working with physical and Occupational Therapy. He was able to ambulate with a walker. His labs were monitored as needed and electrolytes replaced as needed. His x-ray did show increased atelectasis on the left side. He was restarted on p.o. antibiotics. He will need outpatient labs with PCP and follow-up. He was stable to be discharged home with home health. Vital Signs: Vital Signs (72 hours) 10/21/24 19:00 10/21/24 19:49 10/21/24 20:44 Temperature 99.9 F H Pulse Rate Pulse Rate [Bilateral Radial] 95 H Respiratory Rate 19 18 Blood Pressure [Left Arm] Blood Pressure [Right Arm] 104/62 O2 Sat by Pulse Oximetry 97 Oxygen Delivery Method Nasal Cannula Nasal Cannula Oxygen Flow Rate 3 2 FIO2% 10/21/24 21:30 10/21/24 21:30 10/21/24 21:44 Temperature Pulse Rate 97 H Pulse Rate [Bilateral Radial] Respiratory Rate 18 Blood Pressure [Left Arm] Blood Pressure [Right Arm] O2 Sat by Pulse Oximetry 93 L Oxygen Delivery Method Nasal Cannula Oxygen Flow Rate 3 FIO2% 32 10/21/24 22:00 10/22/24 05:35 10/22/24 05:35 Temperature 98.0 F Pulse Rate 93 H Pulse Rate [Bilateral Radial] Respiratory Rate Blood Pressure [Left Arm] Blood Pressure [Right Arm] O2 Sat by Pulse Oximetry 97 Oxygen Delivery Method Nasal Cannula Oxygen Flow Rate 3 FIO2% 32 10/22/24 07:00 10/22/24 09:03 10/22/24 09:04 Temperature Pulse Rate 90 Pulse Rate [Bilateral Radial] Respiratory Rate Blood Pressure [Left Arm] Blood Pressure [Right Arm] O2 Sat by Pulse Oximetry 95 Oxygen Delivery Method Nasal Cannula Nasal Cannula Oxygen Flow Rate 3 3 FIO2% 32 10/22/24 10:00 10/22/24 19:00 10/22/24 20:00 Temperature 98.6 F Pulse Rate Pulse Rate [Bilateral Radial] 103 H Respiratory Rate 18 Blood Pressure [Left Arm] Blood Pressure [Right Arm] 119/55 O2 Sat by Pulse Oximetry 95 Oxygen Delivery Method Nasal Cannula Nasal Cannula Nasal Cannula Oxygen Flow Rate 2 3 3 FIO2% 32 10/22/24 20:01 10/22/24 21:11 10/22/24 21:15 Temperature 98.1 F Pulse Rate 117 H Pulse Rate [Bilateral Radial] 102 H Respiratory Rate 19 18 Blood Pressure [Left Arm] 106/57 Blood Pressure [Right Arm] O2 Sat by Pulse Oximetry 94 L Oxygen Delivery Method Oxygen Flow Rate FIO2% 10/22/24 22:15 10/23/24 00:23 10/23/24 07:00 Temperature Pulse Rate Pulse Rate [Bilateral Radial] Respiratory Rate 18 Blood Pressure [Left Arm] Blood Pressure [Right Arm] O2 Sat by Pulse Oximetry Oxygen Delivery Method Nasal Cannula Nasal Cannula Oxygen Flow Rate 3 3 FIO2% 32 10/23/24 08:05 10/23/24 09:14 10/23/24 09:15 Temperature 98.5 F Pulse Rate 80 Pulse Rate [Bilateral Radial] 97 H Respiratory Rate 22 Blood Pressure [Left Arm] 104/58 Blood Pressure [Right Arm] O2 Sat by Pulse Oximetry 95 95 Oxygen Delivery Method Nasal Cannula Nasal Cannula Oxygen Flow Rate 2 2 FIO2% 32 10/23/24 19:00 10/23/24 20:25 10/23/24 20:28 Temperature Pulse Rate Pulse Rate [Bilateral Radial] Respiratory Rate 18 Blood Pressure [Left Arm] Blood Pressure [Right Arm] O2 Sat by Pulse Oximetry Oxygen Delivery Method Nasal Cannula Nasal Cannula Oxygen Flow Rate 3 3 FIO2% 32 10/23/24 20:29 10/23/24 21:25 10/23/24 22:00 Temperature 98.0 F Pulse Rate 76 Pulse Rate [Bilateral Radial] 89 Respiratory Rate 18 19 Blood Pressure [Left Arm] Blood Pressure [Right Arm] 98/57 O2 Sat by Pulse Oximetry 98 98 Oxygen Delivery Method Nasal Cannula Oxygen Flow Rate 3 FIO2% 10/23/24 22:01 10/24/24 06:03 10/24/24 08:19 Temperature Pulse Rate 85 Pulse Rate [Bilateral Radial] Respiratory Rate Blood Pressure [Left Arm] 106/60 Blood Pressure [Right Arm] O2 Sat by Pulse Oximetry 98 Oxygen Delivery Method Room Air Oxygen Flow Rate 2 FIO2% 28 10/24/24 08:19 Temperature Pulse Rate 97 H Pulse Rate [Bilateral Radial] Respiratory Rate Blood Pressure [Left Arm] Blood Pressure [Right Arm] O2 Sat by Pulse Oximetry 90 L Oxygen Delivery Method Oxygen Flow Rate FIO2% Labs: Laboratory Last Values WBC 12.0 X10^3/uL (3.6-10.0) H 10/24/24 05:32 RBC 3.09 X10^6/uL (4.7-6.0) L 10/24/24 05:32 Hgb 8.3 g/dL (13.5-18.0) L 10/24/24 05:32 Hct 25.6 % (42.0-54.0) L 10/24/24 05:32 MCV 82.8 fL (80.0-100.0) 10/24/24 05:32 MCH 26.8 pg (27.0-34.0) L 10/24/24 05:32 MCHC 32.3 g/dL (33.0-35.0) L 10/24/24 05:32 RDW 19.2 % (11.6-16.5) H 10/24/24 05:32 Plt Count 324 X10^3/uL (150.0-450.0) 10/24/24 05:32 MPV 6.9 fL (7.4-11.0) L 10/24/24 05:32 Neut % (Auto) 82.9 % (42.0-75.0) H 10/24/24 05:32 Lymph % (Auto) 9.9 % (21.0-51.0) L 10/24/24 05:32 [place] % (Auto) 5.2 % (0.0-13.0) 10/24/24 05:32 Eos % (Auto) 1.7 % (0.9-2.9) 10/24/24 05:32 Baso % (Auto) 0.3 % (0.2-1.0) 10/24/24 05:32 Neut # (Auto) 10.0 x10^3/uL (2.2-4.8) H 10/24/24 05:32 Lymph # (Auto) 1.2 X10^3/uL (1.3-2.9) L 10/24/24 05:32 [place] # (Auto) 0.6 x10^3/uL (0.3-0.8) 10/24/24 05:32 Eos # (Auto) 0.2 x10^3/uL (0.0-0.2) 10/24/24 05:32 Baso # (Auto) 0.0 X10^3/uL (0.0-0.1) 10/24/24 05:32 Absolute Nucleated RBC 0.1 /100WBC 10/24/24 05:32 Sodium 138 mmol/L (136-145) 10/24/24 05:32 Corrected Sodium 139 mmol/L (136-145) 10/24/24 05:32 Potassium 3.8 mmol/L (3.5-5.1) 10/24/24 05:32 Chloride 101 mmol/L (98-107) 10/24/24 05:32 Carbon Dioxide 30.8 mmol/L (21-32) 10/24/24 05:32 BUN 21 mg/dL (7-18) H 10/24/24 05:32 Creatinine 0.59 mg/dL (0.70-1.30) L 10/24/24 05:32 Est GFR (MDRD) Af Amer > 60 (>60) 10/24/24 05:32 Est GFR (MDRD) Non-Af > 60 (>60) 10/24/24 05:32 Glucose 121 mg/dL (65-99) H 10/24/24 05:32 POC Glucose (mg/dL) 116 mg/dL (65-99) H 10/24/24 05:14 Calcium 9.0 mg/dL (8.5-10.1) 10/24/24 05:32 Corrected Calcium 9.9 mg/dL (8.5-10.1) 10/24/24 05:32 Magnesium 1.8 mg/dL (2.0-2.9) L 10/24/24 05:32 Total Bilirubin 0.60 mg/dL (0.2-1.0) 10/24/24 05:32 AST 24 Units/L (15-37) 10/24/24 05:32 ALT 45 Units/L (12-78) 10/24/24 05:32 Alkaline Phosphatase 132 Units/L (46-116) H 10/24/24 05:32 Troponin I High Sens 8.2 ng/L (4.0-60.0) 10/19/24 21:09 Total Protein 7.7 g/dL (6.4-8.2) 10/24/24 05:32 Albumin 2.9 g/dL (3.4-5.0) L 10/24/24 05:32 Globulin 4.8 g/dL (2.5-4.5) H 10/24/24 05:32 Albumin/Globulin Ratio 0.6 Ratio (1.1-2.1) L 10/24/24 05:32 Resp Viral Panel (PCR) See scanned report 10/22/24 12:27 Reason For Visit: SWINGBED- DECONDITIONING S/P PNEUMONIA Discharge Diagnosis All Active Problems (Updated 10/03/24 @ 09:38 by Leola Reddy MD) CAD (coronary artery disease) (Chronic) Pneumonia (Acute) Sacral decubitus ulcer (Chronic) Acute on chronic heart failure (Acute) Lung cancer (Chronic) Hyponatremia (Acute) Leucocytosis (Acute) Anemia (Chronic) Acute on chronic right heart failure (Acute) Pleural effusion (Acute) Neutropenia (Acute) Lung cancer (Chronic) Acute dehydration (Acute) Generalized weakness (Acute) Hypotension (Acute) DVT (deep venous thrombosis) (Chronic) Colitis due to Campylobacter species (Acute) Campylobacter diarrhea (Acute) Diarrhea (Acute) Generalized weakness (Acute) Dehydration (Acute) Acute deep vein thrombosis (DVT) of femoral vein of left lower extremity (Acute) Diabetes mellitus (Chronic) Malignant neoplasm of left lung (Chronic) Essential (primary) hypertension (Acute) COPD (chronic obstructive pulmonary disease) (Chronic) Cardiomegaly (Acute) Syncope (Acute) Ventricular tachycardia (paroxysmal) (Acute) Elevated troponin (Acute) Plan of Treatment: Continue with present treatment and follow up plan. Pt is to keep follow up appointment as instructed and take medications as ordered. Discharge Medications Discharge Medications: No Known Drug Allergies Allergy (Verified 09/29/24 21:30) New Prescriptions doxycycline hyclate 100 mg capsule 100 mg PO BID 5 days #10 caps 10/24/24 [Rx] furosemide 40 mg tablet 40 mg PO BID@0900,1700 30 days #60 tabs 10/24/24 [Rx] hydrocodone 10 mg-acetaminophen 325 mg tablet 1 tab PO TID PRN pain 5 days #15 tabs 10/24/24 [Rx] linaclotide 145 mcg capsule (Linzess) 145 mcg PO QAM 30 days #30 caps 10/24/24 [Rx] metoprolol succinate 25 mg tablet,extended release 24 hr 25 mg PO DAILY 30 days #30 tabs 10/24/24 [Rx] zolpidem 5 mg tablet 5 mg PO HS PRN insomnia 5 days #5 tabs 10/24/24 [Rx] Discharge Disposition Discharge Disposition: Home with home health Discharge Condition: Stable Discharge Plan Discharge Plan Hospital Course: Patient is a 68-year-old male with a past medical history of lung cancer, CHF, atrial fibrillation, GERD, chronic pain, hypertension and type 2 diabetes who was admitted to swing bed due to generalized weakness. He was working with physical and Occupational Therapy. He was able to ambulate with a walker. His labs were monitored as needed and electrolytes replaced as needed. His x-ray did show increased atelectasis on the left side. He was restarted on p.o. a ntibiotics. He will need outpatient labs with PCP and follow-up. He was stable to be discharged home with home health. Patient Disposition: HOME HEALTH SERVICE Condition: Stable Health Concerns: Post Hospitalization: new medications and changes needed to prevent readmission or further decline. Pt educated and given instructions on all concerns. Care Plan Goals: Problem: Activity Intolerance Goal: Increased tolerance to activity Instructions: Follow provided instructions. Follow up with primary physician as directed. Contact primary care physician or report to the closest Emergency Room if condition worsens. Plan of Treatment: Continue with present treatment and follow up plan. Pt is to keep follow up appointment as instructed and take medications as ordered. Prescription drug monitoring program results: PDMP reviewed and no concerns identified Prescriptions: New furosemide 40 mg Tablet 40 mg PO BID@0900,1700 30 Days Qty: 60 0RF doxycycline hyclate 100 mg Capsule 100 mg PO BID 5 Days Qty: 10 0RF metoprolol succinate 25 mg Tablet Extended Release 24 Hr 25 mg PO DAILY 30 Days Qty: 30 0RF Linzess 145 mcg Capsule 145 mcg PO QAM 30 Days Qty: 30 0RF zolpidem 5 mg Tablet 5 mg PO HS MDD 1 PRN (Reason: insomnia) 5 Days Qty: 5 0RF Continued famotidine 40 mg tablet 40 mg PO QAM clopidogrel 75 mg tablet 75 mg PO QAM rosuvastatin 20 mg tablet 20 mg PO QPM montelukast 10 mg tablet 10 mg PO QPM potassium chloride 10 mEq capsule, extended release 10 meq PO BID amiodarone 200 mg tablet 200 mg PO QAM levothyroxine 150 mcg tablet 150 mcg PO QAM omeprazole 20 mg capsule,delayed release(DR/EC) 20 mg PO QPM ferrous gluconate 324 mg (38 mg iron) tablet 324 mg PO QAM Eliquis 5 mg tablet 2.5 mg PO BID insulin aspart U-100 [Novolog FlexPen U-100 Insulin] 100 unit/mL (3 mL) insulin pen See Rx Instructions .ROUTE .COMPLEX PRN (Reason: diabetes mellitus) Rx Instructions: per SS albuterol sulfate 90 mcg/actuation HFA aerosol inhaler 2 inh inhalation Q4H PRN tamsulosin [Flomax] 0.4 mg capsule 0.4 mg PO QPM Rx Instructions: for prostate diphenoxylate-atropine [Lomotil] 2.5-0.025 mg Tablet 1 tab PO QDAY PRN megestrol 400 mg/10 mL (40 mg/mL) suspension 800 mg PO DAILY Rx Instructions: 20 ML DAILY. Changed insulin glargine [Basaglar KwikPen U-100 Insulin] 100 unit/mL (3 mL) insulin pen 55 unit SUBCUT QAM 30 Days Qty: 16.5 0RF hydrocodone-acetaminophen 10-325 mg tablet 1 tab PO TID MDD 3 PRN (Reason: pain) 5 Days Qty: 15 0RF Discontinued metoprolol tartrate 50 mg tablet 25 mg PO BID furosemide 20 mg tablet 20 mg PO BID Follow ups/Referrals Follow ups/Referrals: MAURO PRADHAN [STAFF PHYSICIAN, Unknown] Nathaniel Stacy [STAFF PHYSICIAN, MEDICAL] - 10/30/24 11:20 am CASSIA QUEEN MD [STAFF PHYSICIAN, Cardiology] - 11/26/24 10:00 am Instructions Instructions: Weakness: What to Know, [id number], Lung Cancer, Community- Acquired Pneumonia, Adult, [id number] Stand Alone Forms: Find Help Web Site, Post Hospital Follow Up Care Print Language: [place]
== END 2024-10-24 12:05 | disposition home health service (06) | DRG 194 ==
LOC: MED/SURG 10:00
PROVIDERS: ADMIT Internal Medicine; ATTEND Internal Medicine